=== PATIENT | female | born 1960 | race Caucasian/White ===

== ENCOUNTER 2016-12-23 23:59 | Emergency (ER) | payer SELFPAY ==
[2016-12-24 00:07] VITALS: BMI 31.6
--- NOTE | 2016-12-24 00:28 | DR.GENAD ---
HPI - PCP Primary Care Physician: NFD - Complaint/Symptoms Chief Complaint:: "ABOUT A WEEK AGO I STEPPED ON A PIECE OF MULCH, AND I HAVEN' T HAD FEELING IN MY FEET PRIOR TO THAT LIKE I SHOULD FOR SOMETIME. SINCE I STEPPED ON MULCH , I HAD A BLISTER COME UP AND I POPPED IT SINCE IT HAS WENT CRAZY. I HAVE BEEN RUNNING FEVER AND MY FOOT IS SWOLLEN. FEVER HAS BEEN 99.8 HIGHEST." Self Treatment fo Chief Complaint: IBUPROFEN-DID NOT HELP - Nurses notes reviewed Nurses Notes Review: Yes - Source History Provided: Patient - Mode of Arrival Mode of Arrival: Ambulatory - Timing Onset of Chief Complaint: 12/17/16 PMH - PMH Past Medical History: Yes Past Medical History: COPD, Hypertension, Diabetes Past Surgical History: No - Family History History of Family Medical Conditions: Yes Family Medical History: Diabetes Mellitus, Cancer, Hypertension - Social History Type of Tobacco Use: None Alcohol Use: None Do you use any recreational Drugs:: No Lives With: Family Lives Where: Home - infectious screening Have you traveled outside the country in the last 6 months?: No Isolation: Standard PE - Vital Signs Vitals: Temperature 98.2 F Pulse Rate [Left] 86 Pulse Rate 94 Respiratory Rate 16 Blood Pressure [Left Radial 176/91 Artery] Blood Pressure 192/98 O2 Sat by Pulse Oximetry 97 ROR - Labs Reviewed Result Diagrams: 12/24/16 00:58 12/24/16 00:58 Laboratory: WBC 6.1 X10^3/uL (3.6-10.0) 12/24/16 00:58 RBC 4.58 X10^6/uL (3.5-5.4) 12/24/16 00:58 Hgb 13.6 g/dL (12.0-16.0) 12/24/16 00:58 Hct 39.0 % (36.0-47.0) 12/24/16 00:58 MCV 85.0 fL (80.0-100.0) 12/24/16 00:58 MCH 29.6 pg (27.0-34.0) 12/24/16 00:58 MCHC 34.8 g/dL (33.0-35.0) 12/24/16 00:58 RDW 13.1 % (11.6-16.5) 12/24/16 00:58 Plt Count 221 X10^3/uL (150.0-450.0) 12/24/16 00:58 MPV 7.6 fL (7.4-11.0) 12/24/16 00:58 Neut % 62.5 % (42.0-75.0) 12/24/16 00:58 Lymph % 30.5 % (21.0-51.0) 12/24/16 00:58 [place] % 6.4 % (0.0-13.0) 12/24/16 00:58 Eos % 0.0 % (0.9-2.9) L 12/24/16 00:58 Baso % 0.6 % (0.2-1.0) 12/24/16 00:58 Neut # 3.8 x10^3/uL (2.2-4.8) 12/24/16 00:58 Lymph # 1.9 X10^3/uL (1.3-2.9) 12/24/16 00:58 [place] # 0.4 x10^3/uL (0.3-0.8) 12/24/16 00:58 Eos # 0.0 x10^3/uL (0.0-0.2) 12/24/16 00:58 Baso # 0.0 X10^3/uL (0.0-0.1) 12/24/16 00:58 Absolute Nucleated RBC 0.1 /100WBC 12/24/16 00:58 Sodium 133 mmol/L (136-145) L 12/24/16 00:58 Corrected Sodium 141 mmol/L (136-145) 12/24/16 00:58 Potassium 4.2 mmol/L (3.5-5.1) 12/24/16 00:58 Chloride 97 mmol/L (98-107) L 12/24/16 00:58 Carbon Dioxide 28.4 mmol/L (21-32) 12/24/16 00:58 BUN 18 mg/dL (7-18) 12/24/16 00:58 Creatinine 1.05 mg/dL (0.55-1.02) H 12/24/16 00:58 Est GFR (MDRD) Af Amer > 60 (>60) 12/24/16 00:58 Est GFR (MDRD) Non-Af 58 (>60) L 12/24/16 00:58 Glucose 421 mg/dL (65-99) H 12/24/16 00:58 Calcium 9.6 mg/dL (8.5-10.1) 12/24/16 00:58 Corrected Calcium TNP 12/24/16 00:58 Total Bilirubin 0.30 mg/dL (0.2-1.0) 12/24/16 00:58 AST 13 Units/L (15-37) L 12/24/16 00:58 ALT 23 Units/L (12-78) 12/24/16 00:58 Alkaline Phosphatase 100 Units/L (46-116) 12/24/16 00:58 Total Protein 8.5 g/dL (6.4-8.2) H 12/24/16 00:58 Albumin 3.7 g/dL (3.4-5.0) 12/24/16 00:58 Globulin 4.8 g/dL (2.5-4.5) H 12/24/16 00:58 Albumin/Globulin Ratio 0.8 Ratio (1.1-2.1) L 12/24/16 00:58 Acetone, Semi-Quant Negative (NEGATIVE) 12/24/16 00:58 - Discharge Plan Disposition: 01 HOME, SELF-CARE Condition: Stable Prescriptions: Clonidine HCl [CATAPRES 0.2 MG TAB *] 0.2 mg PO BID #60 tab Metformin HCl [GLUCOPHAGE 500 MG *] 500 mg PO BID #60 tab Sulfamethoxazole-Trimethoprim [BACTRIM DS TAB 800/160 MG *] 1 tab PO BID #20 tab - Follow ups/Referrals Follow ups/Referrals: NFD,None [Primary Care Provider] - 3 days - Instructions Instructions: Hyperglycemia, Cellulitis, Hypertension Additional Instructions: RETURN TO [facility]. YOU ARE DISCHARGE FROM ED AGAINST MEDICAL ADVICE. WE RECOMMEND HOSPITALIZATION FOR MANAGEMENT. BECAUSE YOU HAVE NO PCP, [facility] [employer] INFORMATION IS GIVEN FOR FOLLOW UP. MONITOR YOU BLOOD PRESSURE DAILY. WRITE IT DOWN AND TAKE IT TO THE DOCTOR YOU ARE GOING TO SEE FOR FOLLOW UP.
[2016-12-24 01:24] LABS: BASOPHILS % (AUTO) 0.6 % (0.2-1.0); HEMOGLOBIN 13.6 g/dL (12.0-16.0); LYMPHOCYTES # (AUTO) 1.9 X10^3/uL (1.3-2.9); LYMPHOCYTES % (AUTO) 30.5 % (21.0-51.0); MEAN CORPUSCULAR HEMOGLOBIN 29.6 pg (27.0-34.0); MEAN CORPUSCULAR HGB CONC 34.8 g/dL (33.0-35.0); MEAN PLATELET VOLUME 7.6 fL (7.4-11.0); MONOCYTES # (AUTO) 0.4 x10^3/uL (0.3-0.8); MONOCYTES % (AUTO) 6.4 % (0.0-13.0); NEUTROPHILS # (AUTO) 3.8 x10^3/uL (2.2-4.8); NEUTROPHILS % (AUTO) 62.5 % (42.0-75.0); PLATELET COUNT 221 X10^3/uL (150.0-450.0); RED BLOOD COUNT 4.58 X10^6/uL (3.5-5.4); RED CELL DISTRIBUTION WIDTH 13.1 % (11.6-16.5); WHITE BLOOD COUNT 6.1 X10^3/uL (3.6-10.0)
[2016-12-24 01:58] LABS: ALANINE AMINOTRANSFERASE 23 Units/L (12-78); ALBUMIN 3.7 g/dL (3.4-5.0); ALKALINE PHOSPHATASE 100 Units/L (46-116); ASPARTATE AMINO TRANSFERASE 13 Units/L (15-37); BLOOD UREA NITROGEN 18 mg/dL (7-18); CALCIUM 9.6 mg/dL (8.5-10.1); CARBON DIOXIDE 28.4 mmol/L (21-32); CHLORIDE 97 mmol/L (98-107); COR NA(FOR HYPERGLY) 141 mmol/L (136-145); CREATININE 1.05 mg/dL (0.55-1.02); GLUCOSE 421 mg/dL (65-99); SODIUM 133 mmol/L (136-145); TOTAL PROTEIN 8.5 g/dL (6.4-8.2); eGFR BLACK RACES > 60 (>60); eGFR NON BLACK RACES 58 (>60)
[2016-12-24] MEDS ORDERED: ROCEPHIN VIAL 1 GM IM ONE (02:09)
[2016-12-24] MEDS ORDERED: TORADOL 60 MG VIAL IM ONE (02:09)
[2016-12-24] MEDS ORDERED: HumuLIN R SC ONE (02:12)
[2016-12-24] MEDS ORDERED: HumuLIN R ONE (02:19)
[2016-12-24] MEDS ORDERED: TORADOL 60 MG VIAL ONE (02:19)
[2016-12-24] MEDS ORDERED: ROCEPHIN VIAL 1 GM ONE (02:19)
[2016-12-24] MEDS ORDERED: XYLOCAINE 1 % (PLAIN) ONE (02:20)
[2016-12-24] MEDS ORDERED: NEOSPORIN OINT TOP ONE (02:30)
[2016-12-24] MEDS ORDERED: NEOSPORIN OINT ONE (02:31)
[2016-12-24] MEDS ORDERED: NIFEDIPINE CAP 10 MG ONE (02:32)
[2016-12-24] MEDS ORDERED: CATAPRES TAB 0.2 MG ONE (02:33)
[2016-12-24] MEDS ORDERED: CATAPRES TAB 0.2 MG PO ONE ×2 (02:33→02:35)
[2016-12-24 03:16] VITALS: BP 176/91
== END 2016-12-24 03:17 | disposition home or self-care (01) ==
LOC: ER 23:59
DX: L03.90 Cellulitis, unspecified (principal); R73.9 Hyperglycemia, unspecified; I10 Essential (primary) hypertension
CPT/HCPCS: 36415; 80053; 82009; 85025; 87040; 96372; 99282; 99283; J0696; J1815; J1885; J2001

== ENCOUNTER 2017-02-20 19:14 | Emergency (ER) | payer SELFPAY ==
[2017-02-20 19:19] VITALS: BP 147/82; BMI 31.6
[2017-02-20 21:22] LABS: BASOPHILS % (AUTO) 0.4 % (0.2-1.0); HEMATOCRIT 38.1 % (36.0-47.0); HEMOGLOBIN 13.3 g/dL (12.0-16.0); LYMPHOCYTES # (AUTO) 1.4 X10^3/uL (1.3-2.9); MEAN CORPUSCULAR HEMOGLOBIN 29.9 pg (27.0-34.0); MEAN CORPUSCULAR HGB CONC 34.8 g/dL (33.0-35.0); MEAN CORPUSCULAR VOLUME 85.8 fL (80.0-100.0); MEAN PLATELET VOLUME 7.9 fL (7.4-11.0); MONOCYTES # (AUTO) 0.5 x10^3/uL (0.3-0.8); MONOCYTES % (AUTO) 7.2 % (0.0-13.0); NEUTROPHILS # (AUTO) 4.8 x10^3/uL (2.2-4.8); NEUTROPHILS % (AUTO) 71.4 % (42.0-75.0); PLATELET COUNT 160 X10^3/uL (150.0-450.0); RED BLOOD COUNT 4.44 X10^6/uL (3.5-5.4); RED CELL DISTRIBUTION WIDTH 13.6 % (11.6-16.5); WHITE BLOOD COUNT 6.8 X10^3/uL (3.6-10.0)
[2017-02-20] MEDS ORDERED: DILAUDID INJ IM ONE (22:48)
[2017-02-20] MEDS ORDERED: ROCEPHIN VIAL 1 GM ONE (22:57)
[2017-02-20] MEDS ORDERED: DILAUDID INJ ONE (22:57)
[2017-02-20] MEDS ORDERED: ROCEPHIN VIAL 1 GM IM ONE (22:57)
--- NOTE | 2017-02-20 23:02 | DR.GENAD ---
HPI - PCP Primary Care Physician: nfd - Complaint/Symptoms Chief Complaint Doctors Comments: I agree with statement Chief Complaint:: "i stepped on a nail on ." denies any drainage. note redness and edema to left foot. Self Treatment fo Chief Complaint: soaked in episom salt, warm water, peroxide, alcohol. - Source History Provided: Patient - Mode of Arrival Mode of Arrival: Ambulatory - Timing Onset of Chief Complaint: 02/17/17 PMH - PMH Past Medical History: Yes Past Medical History: COPD, Hypertension, Diabetes Past Surgical History: No - Family History History of Family Medical Conditions: Yes Family Medical History: Diabetes Mellitus, Cancer, Hypertension - Social History Does patient currently use any type of tobacco product: No Have you used tobacco products in the last 12 months: No Type of Tobacco Use: None Does any household member use tobacco: No Alcohol Use: None Do you use any recreational Drugs:: No Lives With: Family Lives Where: Home - infectious screening Have you traveled outside the country in the last 6 months?: No Isolation: Standard ROS - Review of Systems Constitutional: No Symptoms Reported Eyes: No Symptoms Reported ENTM: No Symptoms Reported Respiratoy: No Symptoms Reported Cardiovascular: No Symptoms Reported Gastrointestinal/Abdominal: No Symptoms Reported, Abdominal Pain Genitourinary: No Symptoms Reported Neurological: No Symptoms Reported Musculoskeletal: Foot (left plantar surface middle of foot) Integumentary: No Symptoms Reported Hematologic/Lymphatic: No Symptoms Reported Endocrine: No Symptoms Reported Psychiatric: No Symptoms Reported All Other Systems: Reviewed and Negative PE - Vital Signs Vitals: Temperature 98.7 F Pulse Rate 98 Respiratory Rate 16 Blood Pressure [Left Radial 176/91 Artery] Blood Pressure 147/82 O2 Sat by Pulse Oximetry 97 - General General Appearance: Alert - Head Head Exam: Normal Inspection, Atraumatic - Eyes Eye exam: Normal Appearance, PERRL, EOMI - ENT ENT Exam: Normal Exam External Ear Exam: Normal External Inspection TM/Canal Exam: Bilateral Normal Nose Exam: Normal Nose Exam Mouth Exam: Normal Inspection Throat Exam: Normal Inspection - Neck Neck Exam: Normal Inspection, Full ROM - Chest Chest Inspection: Normal Inspection - Respiratory Respiratory Exam: Normal Lung Sounds Bilat Respiratory Exam: Bilateral Clear to Auscultation - Cardiovascular Cardiovascular Exam: Regular Rate - Abdominal Exam Abdominal Exam: Normal Inspection, Normal Bowel Sounds Abdominal Tenderness: negative: RUQ, RLQ, LUQ, LLQ, Epigastrium, Suprapubic, Diffuse, Mild, Moderate, Severe, Other - Extremities Extremities Exam: Other (plantar surface of left foot dull red bullous tender) - Back Back Exam: Normal Inspection - Neurologic Neurological Exam: Alert, Oriented X3, CN II-XII Intact - Psychiatric Psychiatric Exam: Normal Affect - Skin Skin Exam: Warm, Dry Course - Treatment Treatment: culture sample obtained, dilaudid, ceftriaxone - Reevaluation 1st: Improved ROR - Labs Reviewed Result Diagrams: 02/20/17 21:00 Laboratory: WBC 6.8 X10^3/uL (3.6-10.0) 02/20/17 21:00 RBC 4.44 X10^6/uL (3.5-5.4) 02/20/17 21:00 Hgb 13.3 g/dL (12.0-16.0) 02/20/17 21:00 Hct 38.1 % (36.0-47.0) 02/20/17 21:00 MCV 85.8 fL (80.0-100.0) 02/20/17 21:00 MCH 29.9 pg (27.0-34.0) 02/20/17 21:00 MCHC 34.8 g/dL (33.0-35.0) 02/20/17 21:00 RDW 13.6 % (11.6-16.5) 02/20/17 21:00 Plt Count 160 X10^3/uL (150.0-450.0) 02/20/17 21:00 MPV 7.9 fL (7.4-11.0) 02/20/17 21:00 Neut % 71.4 % (42.0-75.0) 02/20/17 21:00 Lymph % 21.0 % (21.0-51.0) 02/20/17 21:00 [place] % 7.2 % (0.0-13.0) 02/20/17 21:00 Eos % 0.0 % (0.9-2.9) L 02/20/17 21:00 Baso % 0.4 % (0.2-1.0) 02/20/17 21:00 Neut # 4.8 x10^3/uL (2.2-4.8) 02/20/17 21:00 Lymph # 1.4 X10^3/uL (1.3-2.9) 02/20/17 21:00 [place] # 0.5 x10^3/uL (0.3-0.8) 02/20/17 21:00 Eos # 0.0 x10^3/uL (0.0-0.2) 02/20/17 21:00 Baso # 0.0 X10^3/uL (0.0-0.1) 02/20/17 21:00 Absolute Nucleated RBC 0.1 /100WBC 02/20/17 21:00 C-Reactive Protein 77.00 mg/L (0-3.0) H 02/20/17 21:00 - Diagnosis Discharge Problem: Cellulitis of left foot - Discharge Plan Condition: Stable - Follow ups/Referrals Follow ups/Referrals: NFD,None [Primary Care Provider] - 3 days - Instructions
[2017-02-20] MEDS ORDERED: ADACEL TDaP IM ONE ×2 (23:06→23:13)
== END 2017-02-20 23:19 | disposition home or self-care (01) ==
LOC: ER 19:14
DX: L03.116 Cellulitis of left lower limb (principal); B95.62 Methicillin resistant Staphylococcus aureus infection as the cause of diseases classified elsewhere
CPT/HCPCS: 36415; 85025; 86140; 87040; 87070; 87075; 87077; 87186; 87205; 90471; 96372; 99283; J0696

== ENCOUNTER 2020-01-31 15:30 | Observation (INO) ==
--- NOTE | 2020-01-31 15:46 | DR.EXTPAIN ---
HPI Time seen Time Seen by Provider: 01/31/20 15:45 PCP Primary Care Physician: ZOHRA CASTRO Complaint/Symptoms Chief Complaint:: PT. C/O RIGHT FOOT PAIN, REDNESS AND SWELLING X 3 WEEKS. PT. REPORTS TO HAVING CHILLS AND FEVER WHICH BEGAN YESTERDAY. UNKNOWN INJURY. COVID-19 Coronavirus risk:travel/contact w/high risk person: No Has patient experienced Coronavirus symptoms: No Source History Provided: Patient Mode of arrival Mode of Arrival: Ambulatory Timing Onset of Chief Complaint: 01/10/20 PMH PMH Past Medical History: Yes Past Medical History: COPD, Diabetes and Hypertension Past Surgical History: No Surgical History: No History Family History History of Family Medical Conditions: Yes Family Medical History: Diabetes Mellitus, Cancer, [place], Coronary Artery Disease, Heart Failure and Hypertension Social History Does patient currently use any type of tobacco product: No Have you used tobacco products in the last 12 months: No Type of Tobacco Use: None Does any household member use tobacco: No Alcohol Use: None Do you use any recreational Drugs:: No Lives With: Family Lives Where: Home Travel Risk Coronavirus risk:travel/contact w/high risk person: No Has patient experienced Coronavirus symptoms: No Infectious screening In the last 2 months have you had wt loss of >10#?: NO Have you had fever, night sweats or hemotysis?: No Have you traveled outside the country in the last 6 months?: No Isolation: Standard ROS Review of Systems Constitutional: No Symptoms Reported and See HPI Eyes: No Symptoms Reported and See HPI ENTM: No Symptoms Reported and See HPI Respiratoy: No Symptoms Reported and See HPI Cardiovascular: No Symptoms Reported and See HPI Gastrointestinal/Abdominal: No Symptoms Reported and See HPI Genitourinary: No Symptoms Reported and See HPI Neurological: No Symptoms Reported and See HPI Musculoskeletal: No Symptoms Reported and See HPI Integumentary: No Symptoms Reported and See HPI Hematologic/Lymphatic: No Symptoms Reported and See HPI Endocrine: No Symptoms Reported and See HPI Psychiatric: No Symptoms Reported and See HPI All Other Systems: Reviewed and Negative PE Vital Signs Vitals: Temperature 97.5 F Pulse Rate 96 Respiratory Rate 17 Blood Pressure [Left Radial 149/80 Artery] Blood Pressure 121/71 O2 Sat by Pulse Oximetry 95 General Limitations: No Limitations General Appearance: Alert and In No Apparent Distress Head Head Exam: Normal Inspection Eyes Eye exam: Normal Appearance ENT ENT Exam: Normal Exam Neck Neck Exam: Normal Inspection Chest Chest Inspection: Normal Inspection Respiratory Respiratory Exam: Normal Lung Sounds Bilat Cardiovascular Cardiovascular Exam: Regular Rate and Normal Rhythm Abdominal Exam Abdominal Exam: Normal Inspection, Normal Bowel Sounds and Soft Extremities Extremities Exam: Normal Inspection Back Back Exam: Normal Inspection Neurological Neurological Exam: Alert, Oriented X3 and CN II-XII Intact Psychiatric Psychiatric Exam: Normal Affect and Normal Mood Skin Skin Exam: Warm, Dry, Intact and Normal Color ROR Labs Reviewed Result Diagrams: 01/31/20 17:05 01/31/20 17:05 Laboratory: 01/31/20 16:48 Foot - Right Gram Stain - Final WBC 8.2 X10^3/uL (3.6-10.0) 01/31/20 17:05 RBC 4.14 X10^6/uL (3.5-5.4) 01/31/20 17:05 Hgb 12.4 g/dL (12.0-16.0) 01/31/20 17:05 Hct 38.7 % (36.0-47.0) 01/31/20 17:05 MCV 93.3 fL (80.0-100.0) 01/31/20 17:05 MCH 30.0 pg (27.0-34.0) 01/31/20 17:05 MCHC 32.2 g/dL (33.0-35.0) L 01/31/20 17:05 RDW 14.7 % (11.6-16.5) 01/31/20 17:05 Plt Count 194 X10^3/uL (150.0-450.0) 01/31/20 17:05 MPV 8.3 fL (7.4-11.0) 01/31/20 17:05 Neut % (Auto) 78.6 % (42.0-75.0) H 01/31/20 17:05 Lymph % (Auto) 11.2 % (21.0-51.0) L 01/31/20 17:05 [place] % (Auto) 9.5 % (0.0-13.0) 01/31/20 17:05 Eos % (Auto) 0.0 % (0.9-2.9) L 01/31/20 17:05 Baso % (Auto) 0.7 % (0.2-1.0) 01/31/20 17:05 Neut # (Auto) 6.4 x10^3/uL (2.2-4.8) H 01/31/20 17:05 Lymph # (Auto) 0.9 X10^3/uL (1.3-2.9) L 01/31/20 17:05 [place] # (Auto) 0.8 x10^3/uL (0.3-0.8) 01/31/20 17:05 Eos # (Auto) 0.0 x10^3/uL (0.0-0.2) 01/31/20 17:05 Baso # (Auto) 0.1 X10^3/uL (0.0-0.1) 01/31/20 17:05 Absolute Nucleated RBC 0.0 /100WBC 01/31/20 17:05 Sodium 136 mmol/L (136-145) 01/31/20 17:05 Corrected Sodium TNP 01/31/20 17:05 Potassium 5.0 mmol/L (3.5-5.1) 01/31/20 17:05 Chloride 103 mmol/L (98-107) 01/31/20 17:05 Carbon Dioxide 26.9 mmol/L (21-32) 01/31/20 17:05 BUN 17 mg/dL (7-18) 01/31/20 17:05 Creatinine 1.30 mg/dL (0.55-1.02) H 01/31/20 17:05 Est GFR (MDRD) Af Amer 54 (>60) L 01/31/20 17:05 Est GFR (MDRD) Non-Af 45 (>60) L 01/31/20 17:05 Glucose 99 mg/dL (65-99) 01/31/20 17:05 Lactic Acid 1.3 mmol/L (0.4-2.0) 01/31/20 17:05 Calcium 8.8 mg/dL (8.5-10.1) 01/31/20 17:05 Corrected Calcium TNP 01/31/20 17:05 Total Bilirubin 1.50 mg/dL (0.2-1.0) H 01/31/20 17:05 AST 24 Units/L (15-37) 01/31/20 17:05 ALT 24 Units/L (12-78) 01/31/20 17:05 Alkaline Phosphatase 108 Units/L (46-116) 01/31/20 17:05 C-Reactive Protein 80.70 mg/L (0-3.0) H 01/31/20 17:05 Total Protein 8.3 g/dL (6.4-8.2) H 01/31/20 17:05 Albumin 3.4 g/dL (3.4-5.0) 01/31/20 17:05 Globulin 4.9 g/dL (2.5-4.5) H 01/31/20 17:05 Albumin/Globulin Ratio 0.7 Ratio (1.1-2.1) L 01/31/20 17:05 Specimen Type Clean catch urine 01/31/20 17:21 Urine Color Yellow (YELLOW) 01/31/20 17:21 Urine Appearance Clear (CLEAR) 01/31/20 17:21 Urine pH 5.0 (5.0 - 8.0) 01/31/20 17:21 Ur Specific [place] 1.015 (1.000-1.030) 01/31/20 17:21 Urine Protein 2+ (NEGATIVE) 01/31/20 17:21 Urine Glucose (UA) Negative (NEGATIVE) 01/31/20 17:21 Urine Ketones Negative (NEGATIVE) 01/31/20 17:21 Urine Occult Blood 3+ (NEGATIVE) 01/31/20 17:21 Urine Nitrite Negative (NEGATIVE) 01/31/20 17:21 Urine Bilirubin Negative (NEGATIVE) 01/31/20 17:21 Urine Urobilinogen Normal (NORMAL) 01/31/20 17:21 Ur Leukocyte Esterase Negative (NEGATIVE) 01/31/20 17:21 Urine RBC 3-5 /HPF (0-3) A 01/31/20 17:21 Urine WBC 0-2 /HPF (0-5) 01/31/20 17:21 Ur Squamous Epith Cells Rare /HPF (NEGATIVE) 01/31/20 17:21 Amorphous Sediment Trace /HPF (NEGATIVE) 01/31/20 17:21 Urine Bacteria Trace /HPF (NEGATIVE) 01/31/20 17:21 Ur Culture Indicated? No/not indicated 01/31/20 17:21 Opioid Opioid Risk Tool Age (Kevin box if 16-45): No History of Preadolescent Sexual Abuse: No Total: 0 Total Score Risk Category: Low Risk Copyright: Donell BOBO predicting aberrant behaviors Diagnosis Discharge Problem: Cellulitis and abscess of toe of right foot Diabetic foot ulcer Qualifiers: Diabetic foot ulcer location: toe Diabetes mellitus type: type 2 Laterality: right Non-pressure ulcer stage: limited to breakdown of skin Qualified Code(s): E11.621 - Type 2 diabetes mellitus with foot ulcer Instructions Forms: Excuse From Work Precautions for COVID19 Patient Portal Social Distancing
[2020-01-31] MEDS ORDERED: VANCOMYCIN IV *PREMIX 1 G/200 ML BAG 1 G/200 ML PIGGYBACK IV ONE (16:21)
--- NOTE | 2020-01-31 16:54 | RAD ---
HISTORYCELLULUTITIS TO RT FOOTSTUDYRight foot x-rays three viewsCOMPARISONNoneFINDINGSThere is mild osteopenia. There is plantar calcaneal spur. There is mild hypertrophic changes at the navicular bone and the middle cuneiform. There is no evidence of acute fractures. No focal bone abnormalities. No focal bone destruction is seen there is soft tissue edema in the dorsal aspect of the forefoot. The subtalar joints are unremarkableIMPRESSIONDiffuse soft tissue edema in the dorsal aspect of the forefoot. No cortical disruption no acute fractures. Mild osteopenia.Electronically signed by: Yanet Booth (Jan 31, 2020 16:53:12)
[2020-01-31] MEDS ORDERED: NS 250 ML IV 250 ML IV ONE (16:55)
[2020-01-31] MEDS ORDERED: NS 500 ML IV 500 ML IV ONE (16:55)
[2020-01-31] MEDS ORDERED: VANCOMYCIN HCL ONE (16:55)
[2020-01-31] MEDS ORDERED: PHARMACY CONSULT - VANCOMYCIN XX SCH (17:00)
--- NOTE | 2020-01-31 17:00 | VAS ---
LOWER EXT VENOUS, UNILATERALHISTORY: CELLULITIS TO RT FOOTComparison:NoneTECHNIQUE: Multiple chavez scale and color flow Doppler images of the deep venous system were obtained of the right lower extremity.FINDINGS:The deep venous system of the right lower extremity were evaluated from the level of the common femoral vein through the popliteal vein. Normal color flow and augmentation can be observed .In addition, normal compression is seen throughout the deep venous system. Prominent inguinal lymph node measuring over 4 cm.IMPRESSION:1. Negative for DVT.2. Prominent inguinal lymph node which is a nonspecific finding. This may be reactive to patient's reported cellulitis.Electronically signed by: TOYIN GRAYSON (Jan 31, 2020 16:59:15)
--- NOTE | 2020-01-31 17:00 | VAS ---
LOWER EXT ARTERIALHISTORY: CELLULITIS TO RT FOOTComparison:NoneTechnique: Multiple chavez scale and color flow Doppler images of the right lower extremity arterial system were obtained. Interrogation of the common femoral artery, superficial femoral artery, popliteal artery, and tibial arteries was performed.Findings:Triphasic and biphasic waveforms are seen throughout the right lower extremity from the common femoral arterial system to the tibial runoff.Common femoral : 131 cm/sSuperficial femoral proximal: 86 cm/sSuperficial femoral mid: 111 cm/sSuperficial femoral distal : 92 cm/sPopliteal : 112 cm/sPosterior tibial : 38 cm/sAnterior tibial /dorsalis pedis: 74 cm/sIMPRESSION:1. No velocities suggestive of hemodynamically significant stenosis of the right lower extremity arterial system.http://www.ncbi.nlm.nih.gov/pubmed/[email or web address] signed by: TOYIN GRAYSON (Jan 30 0 16:58:36)
[2020-01-31 17:21] LABS: BASOPHILS # (AUTO) 0.1 X10^3/uL (0.0-0.1); BASOPHILS % (AUTO) 0.7 % (0.2-1.0); HEMATOCRIT 38.7 % (36.0-47.0); HEMOGLOBIN 12.4 g/dL (12.0-16.0); LYMPHOCYTES # (AUTO) 0.9 X10^3/uL (1.3-2.9); LYMPHOCYTES % (AUTO) 11.2 % (21.0-51.0); MEAN CORPUSCULAR HGB CONC 32.2 g/dL (33.0-35.0); MEAN CORPUSCULAR VOLUME 93.3 fL (80.0-100.0); MEAN PLATELET VOLUME 8.3 fL (7.4-11.0); MONOCYTES # (AUTO) 0.8 x10^3/uL (0.3-0.8); MONOCYTES % (AUTO) 9.5 % (0.0-13.0); NEUTROPHILS # (AUTO) 6.4 x10^3/uL (2.2-4.8); NEUTROPHILS % (AUTO) 78.6 % (42.0-75.0); PLATELET COUNT 194 X10^3/uL (150.0-450.0); RED BLOOD COUNT 4.14 X10^6/uL (3.5-5.4); RED CELL DISTRIBUTION WIDTH 14.7 % (11.6-16.5); WHITE BLOOD COUNT 8.2 X10^3/uL (3.6-10.0)
[2020-01-31 17:31] LABS: BILIRUBIN,URINE NEGATIVE (NEGATIVE); BLOOD/HEMOGLOBIN,URINE 3+ (NEGATIVE); GLUCOSE, URINE NEGATIVE (NEGATIVE); KETONES,URINE NEGATIVE (NEGATIVE); LEUKOCYTE ESTERASE ,URINE NEGATIVE (NEGATIVE); NITRITES,URINE NEGATIVE (NEGATIVE); PROTEIN,URINE 2+ (NEGATIVE); UROBILINOGEN,URINE NORMAL (NORMAL)
[2020-01-31 17:35] LABS: AMORPHOUS SEDIMENT,UR TRACE /HPF (NEGATIVE); APPEARANCE,URINE CLEAR (CLEAR); BACTERIA,URINE TRACE /HPF (NEGATIVE); COLOR,URINE YELLOW (YELLOW); SQUAMOUS EPITHELIAL CELL,UR RARE /HPF (NEGATIVE)
[2020-01-31 17:35] LABS: ALANINE AMINOTRANSFERASE 24 Units/L (12-78); ALBUMIN 3.4 g/dL (3.4-5.0); ALKALINE PHOSPHATASE 108 Units/L (46-116); ASPARTATE AMINO TRANSFERASE 24 Units/L (15-37); BLOOD UREA NITROGEN 17 mg/dL (7-18); CALCIUM 8.8 mg/dL (8.5-10.1); CARBON DIOXIDE 26.9 mmol/L (21-32); CHLORIDE 103 mmol/L (98-107); SODIUM 136 mmol/L (136-145); TOTAL PROTEIN 8.3 g/dL (6.4-8.2); eGFR NON BLACK RACES 45 (>60)
[2020-01-31 17:50] LABS: LACTIC ACID 1.3 mmol/L (0.4-2.0)
[2020-01-31 20:45] VITALS: BMI 38.6
[2020-01-31] MEDS: LASIX IVP SCH (21:26)
[2020-01-31] MEDS: MORPHINE SULFATE INJ 4 MG IVP PRN (21:27)
[2020-02-01 06:02] LABS: BASOPHILS % (AUTO) 0.4 % (0.2-1.0); HEMATOCRIT 39.2 % (36.0-47.0); HEMOGLOBIN 12.8 g/dL (12.0-16.0); LYMPHOCYTES % (AUTO) 9.8 % (21.0-51.0); MEAN CORPUSCULAR HEMOGLOBIN 30.4 pg (27.0-34.0); MEAN CORPUSCULAR HGB CONC 32.5 g/dL (33.0-35.0); MEAN CORPUSCULAR VOLUME 93.4 fL (80.0-100.0); MEAN PLATELET VOLUME 9.2 fL (7.4-11.0); MONOCYTES # (AUTO) 0.9 x10^3/uL (0.3-0.8); MONOCYTES % (AUTO) 8.6 % (0.0-13.0); NEUTROPHILS # (AUTO) 8.3 x10^3/uL (2.2-4.8); NEUTROPHILS % (AUTO) 81.2 % (42.0-75.0); PLATELET COUNT 210 X10^3/uL (150.0-450.0); RED CELL DISTRIBUTION WIDTH 14.8 % (11.6-16.5); WHITE BLOOD COUNT 10.2 X10^3/uL (3.6-10.0)
[2020-02-01 06:18] LABS: ALBUMIN 3.1 g/dL (3.4-5.0); CALCIUM 8.7 mg/dL (8.5-10.1); CARBON DIOXIDE 24.6 mmol/L (21-32); COR CA(FOR HYPOALB) 9.4 mg/dL (8.5-10.1); CREATININE 1.2 mg/dL (0.55-1.02); TOTAL PROTEIN 8.1 g/dL (6.4-8.2)
[2020-02-01] MEDS ORDERED: VANCOMYCIN HCL 500 MG, VANCOMYCIN HCL 1 G in NS 250 ML IV 250 ML IV SCH (09:00)
[2020-02-01] MEDS ORDERED: VANCOMYCIN HCL 1 G in D5W 250 ML IV 250 ML IV SCH (09:00)
[2020-02-01] MEDS ORDERED: NS 500 ML IV 500 ML IV ONE (10:50)
[2020-02-01] MEDS: VANCOMYCIN HCL VIAL 1.25 G 1.25 G in D5W 250 ML IV 250 ML IV SCH ×2 (10:52→21:21)
[2020-02-01] MEDS: LASIX IVP SCH (10:52)
[2020-02-01] MEDS ORDERED: HumuLIN R SUBCUT PRN (10:59)
--- NOTE | 2020-02-01 11:04 | DR.H&P ---
H&P - History & Physical for Day of: H&P Date: 01/31/20 - Chief Complaint Chief Complaint: RIGHT FOOT REDNESS, SWELLING, PAIN - History of Present Illness History of Present Illness: IS A 59 YEAR OLD PATIENT OF PAT [employer]. SHE PRESENTE TO THE ER WITH COMPLAINT OF REDNESS, PAIN, AND SWELLING TO THE RIGHT FOOT. SHE DENIES KNOWN INJURY. SHE REPORTS FEVER AND CHILLS THAT STARTED ONE DAY PRIOR. ON ARRIVAL, SHE IS NOTED WITH AN OPEN WOUND BETWEEN THE FIRST AND SECOND DIGIT. WOUND HAS PURULENT DRAINAGE. SHE HAS A PMH OF COPD, DIABETES, AND HTN. ON ARRIVAL TO THE ER, VITALS WERE 97.5-96-17-95%-121/71. LABS WERE OBTAINED. ABNORMAL LAB VALUES INCLUDE THE FOLLOWING: CREATININE 1.30, TOTAL BILI 1.50, CRP 80.70, TOTAL PROTEIN 8.3, GLOBULIN 4.9. COVID-19 NEGATIVE. BLOOD AND WOUND CULTURES WERE SET UP. PRELIMINARY WOUND CULTURE REVEALS GROWTH OF MODERATE YEAST AND COAGULASE POSITIVE STAPH. A VENOUS DOPPLER OF THE RIGHT FOOT WAS OBTAINED AND REVEALED: 1. Negative for DVT. 2. Prominent inguinal lymph node which is a nonspecific finding. This may be reactive to patient's reported cellulitis. AN ARTERIAL STUDY WAS OBTAINED AND REVEALED: 1. No velocities suggestive of hemodynamically significant stenosis of the right lower extremity arterial system. A FOOT XRAY WAS OBTAINED AND REVEALED: Diffuse soft tissue edema in the dorsal aspect of the forefoot. No cortical disruption no acute fractures. Mild osteopenia. SHE WAS ADMITTED TO THE HOSPITAL FOR FURTHER EVALUATION AND TREATMENT OF RIGHT FOOT AND LEG CELLULITIS AND A DIABETIC FOOT ULCER. SHE WAS STARTED ON VANCOMYCIN 1.25G IV Q12H, ZOSYN 3.375 G IV TID, DIFLUCAN 200MG IVDAILY, HUMULIN R SLIDING SCALE, LASIX 20MG IV DAILY, MORPHINE 4MG IV Q6H PRN, ZOFRAN 4MG PO Q8H PRN. WE WILL OBTAIN A LOWER EXTREMITY CTA TODAY. OTHERWISE, WE PLAN TO FOLLOW UP WITH AM LABS AND CONTINUE TO MONITOR. - Past Medical History Past Medical History: Hypertension, Diabetes, COPD - Past Surgical History Surgical History: No History - Family History Family Medical History: Diabetes Mellitus, Cancer, [place], Coronary Artery Disease, Heart Failure, Hypertension - Social History Does patient currently use any type of tobacco product: No Have you used tobacco products in the last 12 months: No Type of Tobacco Use: None Does any household member use tobacco: No Alcohol Use: None Drug Use: None - Medications Home Medications: No Known Drug Allergies Allergy (Verified 01/31/20 15:35) CONTINUE taking the following medications furosemide 20 mg PO DAILY 02/01/20 [History] glipizide 2.5 mg PO DAILY 02/01/20 [History] hydrochlorothiazide 12.5 mg PO DAILY 02/01/20 [History] lisinopril 5 mg PO DAILY 02/01/20 [History] potassium chloride 10 meq PO DAILY 02/01/20 [History] - Review of Systems Constitutional: Fever, Chills Eyes: No Symptoms Reported ENT: No Symptoms Reported Respiratory: No Symptoms Reported Cardiovascular: No Symptoms Reported Gastrointestinal: No Symptoms Reported Genitourinary: No Symptoms Reported Musculoskeletal: Leg Pain, Foot Pain Skin: Wound (RIGHT UPPER FOOT ) Neurological: Weakness - Physical Exam Vital Signs: Temperature 99.8 F Pulse Rate [Radial] 118 Pulse Rate 96 Respiratory Rate 24 Blood Pressure [Left Radial 139/91 Artery] Blood Pressure 121/71 O2 Sat by Pulse Oximetry 95 Oriented: Normal Eyes: Normal Ear: Normal Nose: Normal Throat: Normal Respiratory: Diminished Throughout Cardiovascular: Normal : Normal Auscultation: Bowel Sounds: Normal Palpation: Normal Tenderness: Normal Skin: Red, Tender, Hot, Wound Musculoskeletal: Right, Foot, Swelling (2+ PITTING EDEMA ), Tender Psychiatric: Normal Mood Description: Calm Affect: Normal Speech Pattern: Clear - Assessment/Plan (1) Cellulitis and abscess of toe of right foot Status: Acute Plan: ADMIT, VANCOMYCIN 1.25G IV Q12H, ZOSYN 3.375 G IV TID, DIFLUCAN 200MG IVDAILY, HUMULIN R SLIDING SCALE, LASIX 20MG IV DAILY, MORPHINE 4MG IV Q6H PRN, ZOFRAN 4MG PO Q8H PRN. WE WILL OBTAIN A LOWER EXTREMITY CTA TODAY. (2) Diabetic foot ulcer Qualifiers: Diabetic foot ulcer location: toe Diabetes mellitus type: type 2 Laterality: right Non-pressure ulcer stage: limited to breakdown of skin Qualified Code(s): E11.621 - Type 2 diabetes mellitus with foot ulcer; L97.511 - Non-pressure chronic ulcer of other part of right foot limited to breakdown of skin Status: Acute - Allergies Allergies/Adverse Reactions: Allergies Allergy/AdvReac Type Severity Reaction Status Date / Time No Known Drug Allergies Allergy Verified 01/31/20 15:35
--- NOTE | 2020-02-01 12:13 | RAD ---
HISTORYCough, shortness of breathSTUDYChest AP portableCOMPARISONNoneFINDINGSThe heart is enlarged. No congestive heart failure is noted. No acute alveolar infiltrates or pleural effusions are identified. Bony thorax is unremarkable.IMPRESSIONCardiomegaly without congestive heart failureLungs clearElectronically signed by: KUMAR BHANDARI (Feb 01, 2020 12:12:28)
[2020-02-01] MEDS: DIFLUCAN 200 MG IV PREMIX* 200 MG/100 ML BAG IV SCH (14:00)
[2020-02-01] MEDS: ZOSYN VIAL 3.375 GRAMS 3.375 G in NS 100 ML IV 100 ML IV SCH ×2 (14:01)
[2020-02-01] MEDS: LOVENOX INJ 40 MG SYR SC SCH (14:03)
[2020-02-01] MEDS: ZOFRAN TAB 4 MG PO PRN (14:30)
[2020-02-01] MEDS: MICRO K EXTEN CAP 10 MEQ PO SCH (16:01)
[2020-02-01] MEDS: HYDROCHLOROTHIAZIDE 12.5 MG CAP PO SCH (16:02)
[2020-02-01] MEDS: GLUCOTROL XL 24-HR PO SCH (16:02)
[2020-02-01] MEDS: ZESTRIL TAB 5 MG PO SCH (16:04)
[2020-02-01] MEDS: MORPHINE SULFATE INJ 4 MG IVP PRN ×2 (16:05→22:45)
--- NOTE | 2020-02-01 16:23 | MRI ---
HISTORYCELLULITIS RT FOOT DIABETIC ULCERSTUDYEXT LOWER NON-JOINT W W/O CONCOMPARISONTECHNIQUEMultiplanar multi-sequence MRI of the right foot obtained with contrast using department protocol.FINDINGSThe exam is limited due to motion artifact and lack of adequate fat suppression technique distally. The ankle mortise is intact. There is moderate stranding and edema in the subcutaneous soft tissues around the ankle extending into the dorsum of the foot and into the digits which is most prominent along the 2nd toe extending along the plantar aspect of the distal foot.The talus and calcaneus are unremarkable. The tarsal bones are intact and normal signal intensity. The metatarsals are unremarkable. There is abnormal edema in the proximal phalanx of the 2nd toe which may be extending slightly into the middle phalanx with no obvious fracture seen. There is no periosteal reaction. There is questionable skin ulceration and heterogeneous abnormal signal the adjacent plantar surface of the 2nd toe with no focal fluid collection seen. There are questionable tiny foci of susceptibility artifact scattered along the plantar surface along the distal foot.IMPRESSIONLimited exam due to motion and positioning.Abnormal edema in the proximal phalanx of the 2nd toe and possibly extending into the base of the middle phalanx of the 2nd toe which could be due to early osteomyelitis. Recommend correlating with a three-phase bone scan.Moderate edema and/or cellulitis in the subcutaneous soft tissues around the ankle extending into the dorsum of the foot distally with no obvious abscess seen. There is a questionable skin ulceration along the plantar aspect of the base of the 2nd toe there some questionable tiny punctate areas of susceptibility artifact scattered in the adjacent soft tissues which could represent tiny air collections but are ill-defined. Recommend clinical correlationElectronically signed by: LEENA VAZQUEZ (Feb 01, 2020 16:21:41)
[2020-02-01] MEDS: SNACK - Diabetic Appropriate PO SCH (21:21)
[2020-02-01] MEDS: ZOSYN VIAL 4.5 GRAMS 4.5 G in NS 100 ML IV 100 ML IV SCH (22:57)
[2020-02-01] MEDS: PHENERGAN INJ 25 MG IM PRN (22:57)
[2020-02-02] MEDS: ZOSYN VIAL 4.5 GRAMS 4.5 G in NS 100 ML IV 100 ML IV SCH ×3 (05:07→21:18)
[2020-02-02 05:42] LABS: BASOPHILS # (AUTO) 0.1 X10^3/uL (0.0-0.1); BASOPHILS % (AUTO) 0.6 % (0.2-1.0); HEMATOCRIT 36.5 % (36.0-47.0); LYMPHOCYTES % (AUTO) 12.5 % (21.0-51.0); MEAN CORPUSCULAR HEMOGLOBIN 30.8 pg (27.0-34.0); MEAN CORPUSCULAR VOLUME 93.4 fL (80.0-100.0); MEAN PLATELET VOLUME 8.8 fL (7.4-11.0); MONOCYTES # (AUTO) 0.9 x10^3/uL (0.3-0.8); MONOCYTES % (AUTO) 11.4 % (0.0-13.0); NEUTROPHILS # (AUTO) 6.3 x10^3/uL (2.2-4.8); NEUTROPHILS % (AUTO) 75.5 % (42.0-75.0); PLATELET COUNT 201 X10^3/uL (150.0-450.0); RED CELL DISTRIBUTION WIDTH 14.2 % (11.6-16.5); WHITE BLOOD COUNT 8.3 X10^3/uL (3.6-10.0)
[2020-02-02 06:00] LABS: ALANINE AMINOTRANSFERASE 25 Units/L (12-78); ALBUMIN 2.9 g/dL (3.4-5.0); ALKALINE PHOSPHATASE 98 Units/L (46-116); ASPARTATE AMINO TRANSFERASE 27 Units/L (15-37); BLOOD UREA NITROGEN 15 mg/dL (7-18); CALCIUM 8.6 mg/dL (8.5-10.1); CHLORIDE 97 mmol/L (98-107); COR CA(FOR HYPOALB) 9.5 mg/dL (8.5-10.1); CREATININE 1.11 mg/dL (0.55-1.02); SODIUM 131 mmol/L (136-145); TOTAL PROTEIN 7.7 g/dL (6.4-8.2); eGFR NON BLACK RACES 54 (>60)
[2020-02-02] MEDS: MORPHINE SULFATE INJ 4 MG IVP PRN ×3 (07:45→21:18)
[2020-02-02] MEDS: ZOFRAN TAB 4 MG PO PRN (07:59)
[2020-02-02] MEDS: VANCOMYCIN HCL VIAL 1.25 G 1.25 G in D5W 250 ML IV 250 ML IV SCH (09:15)
[2020-02-02] MEDS: GLUCOTROL XL 24-HR PO SCH (09:30)
[2020-02-02] MEDS: HYDROCHLOROTHIAZIDE 12.5 MG CAP PO SCH (09:31)
[2020-02-02] MEDS: LASIX IVP SCH (09:31)
[2020-02-02] MEDS: LOVENOX INJ 40 MG SYR SC SCH (09:31)
[2020-02-02] MEDS: MICRO K EXTEN CAP 10 MEQ PO SCH (09:33)
[2020-02-02] MEDS: PEPCID 20 MG IV PREMIX* 20 MG/50 ML BAG IV SCH ×2 (09:33→21:19)
[2020-02-02] MEDS: PROTONIX INJ 40 MG VIAL IVP SCH ×2 (09:34→21:19)
[2020-02-02] MEDS: ZESTRIL TAB 5 MG PO SCH (09:34)
[2020-02-02] MEDS: DIFLUCAN 200 MG IV PREMIX* 200 MG/100 ML BAG IV SCH (10:49)
[2020-02-02] MEDS ORDERED: NS 100 ML IV + SPIKE MINIBAG* 100 ML IV ONE ×2 (14:04→20:16)
[2020-02-02] MEDS: PHENERGAN INJ 25 MG IM PRN ×2 (14:22→21:16)
[2020-02-02 20:29] LABS: CREATININE 1.22 mg/dL (0.55-1.02)
[2020-02-02] MEDS ORDERED: PHARMACY COMMENT IV NR (20:30)
[2020-02-02 20:31] LABS: VANCOMYCIN,TROUGH 20.8 ug/mL (15-20)
[2020-02-02] MEDS: SNACK - Diabetic Appropriate PO SCH (21:20)
[2020-02-03] MEDS: VANCOMYCIN HCL 1 G in D5W 250 ML IV 250 ML IV SCH ×2 (04:41→16:52)
[2020-02-03 06:26] LABS: BASOPHILS # (AUTO) 0.1 X10^3/uL (0.0-0.1); HEMATOCRIT 36.7 % (36.0-47.0); LYMPHOCYTES # (AUTO) 0.8 X10^3/uL (1.3-2.9); LYMPHOCYTES % (AUTO) 12.4 % (21.0-51.0); MEAN CORPUSCULAR HEMOGLOBIN 30.5 pg (27.0-34.0); MEAN CORPUSCULAR HGB CONC 32.8 g/dL (33.0-35.0); MEAN PLATELET VOLUME 9.1 fL (7.4-11.0); MONOCYTES # (AUTO) 0.8 x10^3/uL (0.3-0.8); MONOCYTES % (AUTO) 12.7 % (0.0-13.0); NEUTROPHILS # (AUTO) 4.7 x10^3/uL (2.2-4.8); NEUTROPHILS % (AUTO) 73.9 % (42.0-75.0); PLATELET COUNT 204 X10^3/uL (150.0-450.0); RED BLOOD COUNT 3.95 X10^6/uL (3.5-5.4); RED CELL DISTRIBUTION WIDTH 14.3 % (11.6-16.5); WHITE BLOOD COUNT 6.3 X10^3/uL (3.6-10.0)
[2020-02-03 06:41] LABS: ALANINE AMINOTRANSFERASE 25 Units/L (12-78); ALBUMIN 2.8 g/dL (3.4-5.0); ALKALINE PHOSPHATASE 99 Units/L (46-116); ASPARTATE AMINO TRANSFERASE 37 Units/L (15-37); BLOOD UREA NITROGEN 17 mg/dL (7-18); CALCIUM 8.3 mg/dL (8.5-10.1); CARBON DIOXIDE 25.3 mmol/L (21-32); CHLORIDE 96 mmol/L (98-107); COR CA(FOR HYPOALB) 9.3 mg/dL (8.5-10.1); CREATININE 1.12 mg/dL (0.55-1.02); SODIUM 131 mmol/L (136-145); TOTAL PROTEIN 7.4 g/dL (6.4-8.2); eGFR NON BLACK RACES 53 (>60)
[2020-02-03] MEDS: HYDROCHLOROTHIAZIDE 12.5 MG CAP PO SCH (08:06)
[2020-02-03] MEDS: GLUCOTROL XL 24-HR PO SCH (08:06)
[2020-02-03] MEDS: MICRO K EXTEN CAP 10 MEQ PO SCH (08:07)
[2020-02-03] MEDS: LOVENOX INJ 40 MG SYR SC SCH (08:07)
[2020-02-03] MEDS: LASIX IVP SCH (08:07)
[2020-02-03] MEDS: PROTONIX INJ 40 MG VIAL IVP SCH ×2 (08:08→21:30)
[2020-02-03] MEDS: ZESTRIL TAB 5 MG PO SCH (08:08)
[2020-02-03] MEDS: ZOSYN VIAL 4.5 GRAMS 4.5 G in NS 100 ML IV 100 ML IV SCH ×3 (08:09→22:26)
[2020-02-03] MEDS ORDERED: PHARMACY COMMENT IV SCH (08:30)
[2020-02-03] MEDS: MORPHINE SULFATE INJ 4 MG IVP PRN ×3 (09:55→22:25)
[2020-02-03] MEDS: DIFLUCAN 200 MG IV PREMIX* 200 MG/100 ML BAG IV SCH (09:55)
[2020-02-03] MEDS: PHENERGAN INJ 25 MG IM PRN ×3 (09:56→22:24)
[2020-02-03] MEDS: PEPCID 20 MG IV PREMIX* 20 MG/50 ML BAG IV SCH ×2 (11:15→21:34)
--- NOTE | 2020-02-03 12:01 | PCM.PROG ---
Progress Note - Progress Note for Day of Date of Exam: 02/02/20 - Subjective Subjective: IS BEING TREATED FOR CELLULITIS AND DIABETIC ULCER/WOUND TO THE RIGHT FOOT. TODAY, SHE IS ALERT AND OREINTED, LYING IN BED ON MORNING ROUNDS. SHE CONTINUES WITH REDNESS, SWELLING, AND PAIN TO THE RIGHT FOOT. ON EXAMINATION, HEART IS REGULAR IN RATE AND RHYTHM. BILATERAL LUNGS ARE NOTED WITH DIMINISHED LUNG SOUNDS THROUGHOUT. ABDOMEN IS ROUND, SOFT, AND NON-TENDER WITH NORMAL BOWEL SOUNDS NOTED IN ALL QUADRANTS. RIGHT FOOT IS NOTED WITH ERYTHEMA AND EDEMA. WOUND BETWEEN FIRST AND SECOND DIGIT IS NOTED WITH PURULENT DRAINAGE. HER VITALS THIS MORNING ARE: 98.3-95-20-95%-141/90. LABS WERE OBTAINED. ABNORMAL LAB VALUES INCLUDE THE FOLLOWING: SODIUM 131, CHLORIDE 97, CREATININE 1.11, TOTAL BILI 1.40, ALBUMIN 2.9, GLOBULIN 4.8. WOUND CULTURE IS POSITIVE FOR STAPHYLOCOCCUS AUREUS. BLOOD CULTURES ARE PENDING. A LOWER EXTREMITY MRI WAS OBTAINED YESTERDAY AND REVEALED: Abnormal edema in the proximal phalanx of the 2nd toe and possibly extending into the base of the middle phalanx of the 2nd toe which could be due to early osteomyelitis. Recommend correlating with a three-phase bone scan. Moderate edema and/or cellulitis in the subcutaneous soft tissues around the ankle extending into the dorsum of the foot distally with no obvious abscess seen. There is a questionable skin ulceration along the plantar aspect of the base of the 2nd toe there some questionable tiny punctate areas of susceptibility artifact scattered in the adjacent soft tissues which could represent tiny air collections but are ill-defined. SHE IS CURRENTLY RECEIVING VANCOMYCIN 1.25G IV Q12H, ZOSYN 3.375 G IV TID, DIFLUCAN 200MG IVDAILY, HUMULIN R SLIDING SCALE, LASIX 20MG IV DAILY, MORPHINE 4MG IV Q6H PRN, ZOFRAN 4MG PO Q8H PRN. HER HOME MEDICATIONS WERE RESUMED. WE WILL CONTINUE WITH CURRENT PLAN FO CARE TODAY. OTHERWISE, WE WILL FOLLOW UP WITH AM LABS AND CONTINUE TO MONITOR. - Past Medical Family Social History Past Med/Fam/Surg Hx: No changes since H&P Allergies: Allergies No Known Drug Allergies Allergy (Verified 01/31/20 15:35) - Review of Systems ROS: No change since H&P - Vital Signs and I&O's Vital Signs: Temperature 99.2 F Pulse Rate [Radial] 85 Pulse Rate 96 Respiratory Rate 20 Blood Pressure [Right Arm] 134/77 Blood Pressure [Left Radial 121/63 Artery] Blood Pressure 121/71 O2 Sat by Pulse Oximetry 94 Intake and Output: Intake & Output 01/31/20 02/01/20 02/02/20 02/03/20 11:59 11:59 11:59 11:59 Intake Total 890 / 890 1680 / 1680 1540 / 1540 Balance 890 / 890 1680 / 1680 1540 / 1540 - Physical Exam Oriented: Normal Eyes: Normal Ear: Normal Nose: Normal Throat: Normal Respiratory: Generalized, Diminished Cardiovascular: Normal : Normal Auscultation: Bowel Sounds: Normal Palpation: Normal Tenderness: Normal Skin: Red, Tender, Hot, Wound Musculoskeletal: Right, Foot, Swelling (2+ PITTING EDEMA ), Tender Psychiatric: Normal Mood Description: Calm Affect: Normal Speech Pattern: Clear, Appropriate - Laboratory and Diagnostics Result Diagrams: 02/03/20 05:15 02/03/20 05:15 Labs: 01/31/20 16:48 Foot - Right Gram Stain - Final 01/31/20 16:48 Foot - Right Wound Culture - Final Staphylococcus Aureus 01/31/20 17:05 Blood Blood Culture - Preliminary 01/31/20 16:50 Blood Blood Culture - Preliminary Laboratory WBC 6.3 X10^3/uL (3.6-10.0) 02/03/20 05:15 RBC 3.95 X10^6/uL (3.5-5.4) 02/03/20 05:15 Hgb 12.0 g/dL (12.0-16.0) 02/03/20 05:15 Hct 36.7 % (36.0-47.0) 02/03/20 05:15 MCV 93.0 fL (80.0-100.0) 02/03/20 05:15 MCH 30.5 pg (27.0-34.0) 02/03/20 05:15 MCHC 32.8 g/dL (33.0-35.0) L 02/03/20 05:15 RDW 14.3 % (11.6-16.5) 02/03/20 05:15 Plt Count 204 X10^3/uL (150.0-450.0) 02/03/20 05:15 MPV 9.1 fL (7.4-11.0) 02/03/20 05:15 Neut % (Auto) 73.9 % (42.0-75.0) 02/03/20 05:15 Lymph % (Auto) 12.4 % (21.0-51.0) L 02/03/20 05:15 [place] % (Auto) 12.7 % (0.0-13.0) 02/03/20 05:15 Eos % (Auto) 0.0 % (0.9-2.9) L 02/03/20 05:15 Baso % (Auto) 1.0 % (0.2-1.0) 02/03/20 05:15 Neut # (Auto) 4.7 x10^3/uL (2.2-4.8) 02/03/20 05:15 Lymph # (Auto) 0.8 X10^3/uL (1.3-2.9) L 02/03/20 05:15 [place] # (Auto) 0.8 x10^3/uL (0.3-0.8) 02/03/20 05:15 Eos # (Auto) 0.0 x10^3/uL (0.0-0.2) 02/03/20 05:15 Baso # (Auto) 0.1 X10^3/uL (0.0-0.1) 02/03/20 05:15 Absolute Nucleated RBC 0.0 /100WBC 02/03/20 05:15 ESR 84 MM/HOUR (0-20) H 02/01/20 05:05 Sodium 131 mmol/L (136-145) L 02/03/20 05:15 Corrected Sodium TNP 02/03/20 05:15 Potassium 3.7 mmol/L (3.5-5.1) 02/03/20 05:15 Chloride 96 mmol/L (98-107) L 02/03/20 05:15 Carbon Dioxide 25.3 mmol/L (21-32) 02/03/20 05:15 BUN 17 mg/dL (7-18) 02/03/20 05:15 Creatinine 1.12 mg/dL (0.55-1.02) H 02/03/20 05:15 Est GFR (MDRD) Af Amer > 60 (>60) 02/03/20 05:15 Est GFR (MDRD) Non-Af 53 (>60) L 02/03/20 05:15 Glucose 86 mg/dL (65-99) 02/03/20 05:15 POC Glucose (mg/dL) 92 mg/dL (65-99) 02/03/20 05:27 Lactic Acid 1.3 mmol/L (0.4-2.0) 01/31/20 17:05 Calcium 8.3 mg/dL (8.5-10.1) L 02/03/20 05:15 Corrected Calcium 9.3 mg/dL (8.5-10.1) 02/03/20 05:15 Total Bilirubin 1.40 mg/dL (0.2-1.0) H 02/03/20 05:15 AST 37 Units/L (15-37) 02/03/20 05:15 ALT 25 Units/L (12-78) 02/03/20 05:15 Alkaline Phosphatase 99 Units/L (46-116) 02/03/20 05:15 C-Reactive Protein 83.10 mg/L (0-3.0) H 02/02/20 05:09 Total Protein 7.4 g/dL (6.4-8.2) 02/03/20 05:15 Albumin 2.8 g/dL (3.4-5.0) L 02/03/20 05:15 Globulin 4.6 g/dL (2.5-4.5) H 02/03/20 05:15 Albumin/Globulin Ratio 0.6 Ratio (1.1-2.1) L 02/03/20 05:15 Specimen Type Clean catch urine 01/31/20 17:21 Urine Color Yellow (YELLOW) 01/31/20 17:21 Urine Appearance Clear (CLEAR) 01/31/20 17:21 Urine pH 5.0 (5.0 - 8.0) 01/31/20 17:21 Ur Specific [place] 1.015 (1.000-1.030) 01/31/20 17:21 Urine Protein 2+ (NEGATIVE) 01/31/20 17:21 Urine Glucose (UA) Negative (NEGATIVE) 01/31/20 17:21 Urine Ketones Negative (NEGATIVE) 01/31/20 17:21 Urine Occult Blood 3+ (NEGATIVE) 01/31/20 17:21 Urine Nitrite Negative (NEGATIVE) 01/31/20 17:21 Urine Bilirubin Negative (NEGATIVE) 01/31/20 17:21 Urine Urobilinogen Normal (NORMAL) 01/31/20 17:21 Ur Leukocyte Esterase Negative (NEGATIVE) 01/31/20 17:21 Urine RBC 3-5 /HPF (0-3) A 01/31/20 17:21 Urine WBC 0-2 /HPF (0-5) 01/31/20 17:21 Ur Squamous Epith Cells Rare /HPF (NEGATIVE) 01/31/20 17:21 Amorphous Sediment Trace /HPF (NEGATIVE) 01/31/20 17:21 Urine Bacteria Trace /HPF (NEGATIVE) 01/31/20 17:21 Ur Culture Indicated? No/not indicated 01/31/20 17:21 Vancomycin Trough 20.8 ug/mL (15-20) H* 02/02/20 19:57 SARS-CoV-2 (PCR) Negative (NEGATIVE) 01/31/20 21:28 - Plan (1) Cellulitis and abscess of toe of right foot Status: Acute Plan: VANCOMYCIN 1.25G IV Q12H, ZOSYN 3.375 G IV TID, DIFLUCAN 200MG IVDAILY, HUMULIN R SLIDING SCALE, LASIX 20MG IV DAILY, MORPHINE 4MG IV Q6H PRN, ZOFRAN 4MG PO Q8H PRN. (2) Osteomyelitis Status: Acute Qualifiers: Osteomyelitis type: unspecified type Osteomyelitis location: foot Laterality: right Qualified Code(s): M86.9 - Osteomyelitis, unspecified (3) Diabetic foot ulcer Status: Acute Qualifiers: Diabetic foot ulcer location: toe Diabetes mellitus type: type 2 Laterality: right Non-pressure ulcer stage: limited to breakdown of skin [place] lified Code(s): E11.621 - Type 2 diabetes mellitus with foot ulcer; L97.511 - Non-pressure chronic ulcer of other part of right foot limited to breakdown of skin
--- NOTE | 2020-02-03 12:48 | PCM.PROG ---
Progress Note - Progress Note for Day of Date of Exam: 02/03/20 - Subjective Subjective: IS BEING TREATED FOR CELLULITIS AND DIABETIC ULCER/WOUND TO THE RIGHT FOOT WITH OSTEOMYELITIS. TODAY, SHE IS ALERT AND OREINTED, LYING IN BED ON MORNING ROUNDS. SHE CONTINUES WITH REDNESS, SWELLING, AND PAIN TO THE RIGHT FOOT. SHE DOES REPORT SLIGHT IMPROVEMENT SINCE YESTERDAY. ON EXAMINATION, HEART IS REGULAR IN RATE AND RHYTHM. BILATERAL LUNGS ARE NOTED WITH DIMINISHED LUNG SOUNDS THROUGHOUT. ABDOMEN IS ROUND, SOFT, AND NON-TENDER WITH NORMAL BOWEL SOUNDS NOTED IN ALL QUADRANTS. RIGHT FOOT IS NOTED WITH ERYTHEMA AND EDEMA. WOUND BETWEEN FIRST AND SECOND DIGIT IS NOTED WITH A MINIMAL AMOUNT OF DRAINAGE TODAY. HER VITALS THIS MORNING ARE: 99.2-85-20-94%-134/77. LABS WERE OBTAINED. ABNORMAL LAB VALUES INCLUDE THE FOLLOWING: SODIUM 131, CHLORIDE 96, CREATININE 1.12, CALCIUM 8.3, TOTAL BILI 1.40, ALBUMIN 2.8. WOUND CULTURE IS POSITIVE FOR STAPHYLOCOCCUS AUREUS. BLOOD CULTURES ARE PENDING. SHE IS CURRENTLY RECEIVING VANCOMYCIN 1.25G IV Q12H, ZOSYN 3.375 G IV TID, DIFLUCAN 200MG IVDAILY, HUMULIN R SLIDING SCALE, LASIX 20MG IV DAILY, MORPHINE 4MG IV Q6H PRN, ZOFRAN 4MG PO Q8H PRN. HER HOME MEDICATIONS WERE RESUMED. WE WILL CONTINUE WITH CURRENT PLAN OF CARE TODAY. AFTER DISCHARGE, SHE WILL NEED A 6 WEEK COURSE OF ORAL ANTIBIOTICS FOR TREATMENT OF OSTEOMYELITIS. OTHERWISE, WE WILL FOLLOW UP WITH AM LABS AND CONTINUE TO MONITOR. - Past Medical Family Social History Past Med/Fam/Surg Hx: No changes since H&P Allergies: Allergies No Known Drug Allergies Allergy (Verified 01/31/20 15:35) - Review of Systems ROS: No change since H&P - Vital Signs and I&O's Vital Signs: Temperature 97.9 F Pulse Rate [Radial] 99 Pulse Rate 96 Respiratory Rate 20 Blood Pressure [Right Arm] 112/55 Blood Pressure [Left Radial 121/63 Artery] Blood Pressure 121/71 O2 Sat by Pulse Oximetry 98 Intake and Output: Intake & Output 02/01/20 02/02/20 02/03/20 02/04/20 11:59 11:59 11:59 11:59 Intake Total 890 / 890 1680 / 1680 1540 / 1540 Balance 890 / 890 1680 / 1680 1540 / 1540 - Physical Exam Oriented: Normal Eyes: Normal Ear: Normal Nose: Normal Throat: Normal Respiratory: Generalized, Diminished Cardiovascular: Normal : Normal Auscultation: Bowel Sounds: Normal Tenderness: Normal Skin: Red, Tender, Hot, Wound Musculoskeletal: Right, Foot, Swelling (2+ PITTING EDEMA ), Tender Psychiatric: Normal Mood Description: Calm Affect: Normal Speech Pattern: Clear, Appropriate - Laboratory and Diagnostics Result Diagrams: 02/03/20 05:15 02/03/20 05:15 Labs: 01/31/20 16:48 Foot - Right Gram Stain - Final 01/31/20 16:48 Foot - Right Wound Culture - Final Staphylococcus Aureus 01/31/20 17:05 Blood Blood Culture - Preliminary 01/31/20 16:50 Blood Blood Culture - Preliminary Laboratory WBC 6.3 X10^3/uL (3.6-10.0) 02/03/20 05:15 RBC 3.95 X10^6/uL (3.5-5.4) 02/03/20 05:15 Hgb 12.0 g/dL (12.0-16.0) 02/03/20 05:15 Hct 36.7 % (36.0-47.0) 02/03/20 05:15 MCV 93.0 fL (80.0-100.0) 02/03/20 05:15 MCH 30.5 pg (27.0-34.0) 02/03/20 05:15 MCHC 32.8 g/dL (33.0-35.0) L 02/03/20 05:15 RDW 14.3 % (11.6-16.5) 02/03/20 05:15 Plt Count 204 X10^3/uL (150.0-450.0) 02/03/20 05:15 MPV 9.1 fL (7.4-11.0) 02/03/20 05:15 Neut % (Auto) 73.9 % (42.0-75.0) 02/03/20 05:15 Lymph % (Auto) 12.4 % (21.0-51.0) L 02/03/20 05:15 [place] % (Auto) 12.7 % (0.0-13.0) 02/03/20 05:15 Eos % (Auto) 0.0 % (0.9-2.9) L 02/03/20 05:15 Baso % (Auto) 1.0 % (0.2-1.0) 02/03/20 05:15 Neut # (Auto) 4.7 x10^3/uL (2.2-4.8) 02/03/20 05:15 Lymph # (Auto) 0.8 X10^3/uL (1.3-2.9) L 02/03/20 05:15 [place] # (Auto) 0.8 x10^3/uL (0.3-0.8) 02/03/20 05:15 Eos # (Auto) 0.0 x10^3/uL (0.0-0.2) 02/03/20 05:15 Baso # (Auto) 0.1 X10^3/uL (0.0-0.1) 02/03/20 05:15 Absolute Nucleated RBC 0.0 /100WBC 02/03/20 05:15 ESR 84 MM/HOUR (0-20) H 02/01/20 05:05 Sodium 131 mmol/L (136-145) L 02/03/20 05:15 Corrected Sodium TNP 02/03/20 05:15 Potassium 3.7 mmol/L (3.5-5.1) 02/03/20 05:15 Chloride 96 mmol/L (98-107) L 02/03/20 05:15 Carbon Dioxide 25.3 mmol/L (21-32) 02/03/20 05:15 BUN 17 mg/dL (7-18) 02/03/20 05:15 Creatinine 1.12 mg/dL (0.55-1.02) H 02/03/20 05:15 Est GFR (MDRD) Af Amer > 60 (>60) 02/03/20 05:15 Est GFR (MDRD) Non-Af 53 (>60) L 02/03/20 05:15 Glucose 86 mg/dL (65-99) 02/03/20 05:15 POC Glucose (mg/dL) 73 mg/dL (65-99) 02/03/20 12:15 Lactic Acid 1.3 mmol/L (0.4-2.0) 01/31/20 17:05 Calcium 8.3 mg/dL (8.5-10.1) L 02/03/20 05:15 Corrected Calcium 9.3 mg/dL (8.5-10.1) 02/03/20 05:15 Total Bilirubin 1.40 mg/dL (0.2-1.0) H 02/03/20 05:15 AST 37 Units/L (15-37) 02/03/20 05:15 ALT 25 Units/L (12-78) 02/03/20 05:15 Alkaline Phosphatase 99 Units/L (46-116) 02/03/20 05:15 C-Reactive Protein 83.10 mg/L (0-3.0) H 02/02/20 05:09 Total Protein 7.4 g/dL (6.4-8.2) 02/03/20 05:15 Albumin 2.8 g/dL (3.4-5.0) L 02/03/20 05:15 Globulin 4.6 g/dL (2.5-4.5) H 02/03/20 05:15 Albumin/Globulin Ratio 0.6 Ratio (1.1-2.1) L 02/03/20 05:15 Specimen Type Clean catch urine 01/31/20 17:21 Urine Color Yellow (YELLOW) 01/31/20 17:21 Urine Appearance Clear (CLEAR) 01/31/20 17:21 Urine pH 5.0 (5.0 - 8.0) 01/31/20 17:21 Ur Specific [place] 1.015 (1.000-1.030) 01/31/20 17:21 Urine Protein 2+ (NEGATIVE) 01/31/20 17:21 Urine Glucose (UA) Negative (NEGATIVE) 01/31/20 17:21 Urine Ketones Negative (NEGATIVE) 01/31/20 17:21 Urine Occult Blood 3+ (NEGATIVE) 01/31/20 17:21 Urine Nitrite Negative (NEGATIVE) 01/31/20 17:21 Urine Bilirubin Negative (NEGATIVE) 01/31/20 17:21 Urine Urobilinogen Normal (NORMAL) 01/31/20 17:21 Ur Leukocyte Esterase Negative (NEGATIVE) 01/31/20 17:21 Urine RBC 3-5 /HPF (0-3) A 01/31/20 17:21 Urine WBC 0-2 /HPF (0-5) 01/31/20 17:21 Ur Squamous Epith Cells Rare /HPF (NEGATIVE) 01/31/20 17:21 Amorphous Sediment Trace /HPF (NEGATIVE) 01/31/20 17:21 Urine Bacteria Trace /HPF (NEGATIVE) 01/31/20 17:21 Ur Culture Indicated? No/not indicated 01/31/20 17:21 Vancomycin Trough 20.8 ug/mL (15-20) H* 02/02/20 19:57 SARS-CoV-2 (PCR) Negative (NEGATIVE) 01/31/20 21:28 - Plan (1) Cellulitis and abscess of toe of right foot Status: Acute Plan: VANCOMYCIN 1.25G IV Q12H, ZOSYN 3.375 G IV TID, DIFLUCAN 200MG IVDAILY, HUMULIN R SLIDING SCALE, LASIX 20MG IV DAILY, MORPHINE 4MG IV Q6H PRN, ZOFRAN 4MG PO Q8H PRN. (2) Osteomyelitis Status: Acute Qualifiers: Osteomyelitis type: unspecified type Osteomyelitis location: foot Laterality: right Qualified Code(s): M86.9 - Osteomyelitis, unspecified (3) Diabetic foot ulcer Status: Acute Qualifiers: Diabetic foot ulcer location: toe Diabetes mellitus type: type 2 Laterality: right Non-pressure ulcer stage: limited to breakdown of skin Qualified Code(s): E11.621 - Type 2 diabetes mellitus with foot ulcer; L97.511 - Non-pressure chronic ulcer of other part of right foot limited to breakdown of skin
[2020-02-03] MEDS: SNACK - Diabetic Appropriate PO SCH (21:22)
[2020-02-04] MEDS ORDERED: NS 500 ML IV 500 ML IV ONE (03:10)
[2020-02-04] MEDS: VANCOMYCIN HCL 1 G in D5W 250 ML IV 250 ML IV SCH (03:21)
[2020-02-04] MEDS: ZOSYN VIAL 4.5 GRAMS 4.5 G in NS 100 ML IV 100 ML IV SCH (05:38)
[2020-02-04 06:12] LABS: BASOPHILS % (AUTO) 0.6 % (0.2-1.0); HEMATOCRIT 35.7 % (36.0-47.0); HEMOGLOBIN 11.8 g/dL (12.0-16.0); LYMPHOCYTES # (AUTO) 1.5 X10^3/uL (1.3-2.9); LYMPHOCYTES % (AUTO) 20.6 % (21.0-51.0); MEAN CORPUSCULAR HEMOGLOBIN 30.3 pg (27.0-34.0); MEAN CORPUSCULAR VOLUME 91.7 fL (80.0-100.0); MEAN PLATELET VOLUME 8.5 fL (7.4-11.0); MONOCYTES # (AUTO) 1.1 x10^3/uL (0.3-0.8); MONOCYTES % (AUTO) 15.3 % (0.0-13.0); NEUTROPHILS # (AUTO) 4.5 x10^3/uL (2.2-4.8); NEUTROPHILS % (AUTO) 63.5 % (42.0-75.0); PLATELET COUNT 234 X10^3/uL (150.0-450.0); RED BLOOD COUNT 3.89 X10^6/uL (3.5-5.4); RED CELL DISTRIBUTION WIDTH 14.5 % (11.6-16.5); WHITE BLOOD COUNT 7.1 X10^3/uL (3.6-10.0)
[2020-02-04 06:16] LABS: ALANINE AMINOTRANSFERASE 34 Units/L (12-78); ALBUMIN 2.6 g/dL (3.4-5.0); ALKALINE PHOSPHATASE 102 Units/L (46-116); ASPARTATE AMINO TRANSFERASE 50 Units/L (15-37); BLOOD UREA NITROGEN 14 mg/dL (7-18); CHLORIDE 94 mmol/L (98-107); COR CA(FOR HYPOALB) 9.1 mg/dL (8.5-10.1); CREATININE 1.15 mg/dL (0.55-1.02); SODIUM 129 mmol/L (136-145); TOTAL PROTEIN 7.2 g/dL (6.4-8.2); eGFR NON BLACK RACES 52 (>60)
[2020-02-04] MEDS: PEPCID 20 MG IV PREMIX* 20 MG/50 ML BAG IV SCH (09:46)
[2020-02-04] MEDS: PROTONIX INJ 40 MG VIAL IVP SCH (09:49)
[2020-02-04] MEDS: LASIX IVP SCH (09:49)
[2020-02-04] MEDS: HYDROCHLOROTHIAZIDE 12.5 MG CAP PO SCH (09:50)
[2020-02-04] MEDS: MICRO K EXTEN CAP 10 MEQ PO SCH (09:50)
[2020-02-04] MEDS: GLUCOTROL XL 24-HR PO SCH (09:50)
[2020-02-04] MEDS: ZESTRIL TAB 5 MG PO SCH (09:50)
[2020-02-04] MEDS: LOVENOX INJ 40 MG SYR SC SCH (09:51)
[2020-02-04] MEDS: MORPHINE SULFATE INJ 4 MG IVP PRN (10:01)
[2020-02-04] MEDS: DIFLUCAN 200 MG IV PREMIX* 200 MG/100 ML BAG IV SCH (10:01)
[2020-02-04 11:30] VITALS: BP 133/74
[2020-02-04] MEDS ORDERED: PHARMACY COMMENT IV NR (15:30)
== END 2020-02-04 12:00 | disposition home or self-care (01) ==
LOC: MED/SURG 15:32 → ER 15:32 → MED/SURG 19:49
PROVIDERS: ADMIT Internal Medicine; ATTEND Internal Medicine
DX: J44.9 Chronic obstructive pulmonary disease, unspecified; Z11.59 Encounter for screening for other viral diseases; B95.61 Methicillin susceptible Staphylococcus aureus infection as the cause of diseases classified elsewhere; M86.9 Osteomyelitis, unspecified; L03.115 Cellulitis of right lower limb; E11.65 Type 2 diabetes mellitus with hyperglycemia; L97.519 Non-pressure chronic ulcer of other part of right foot with unspecified severity; E11.621 Type 2 diabetes mellitus with foot ulcer; L02.611 Cutaneous abscess of right foot; I10 Essential (primary) hypertension
CPT/HCPCS: 36415; 71010; 71045; 73630; 73720; 80053; 80202; 81001; 82565; 83605; 85025; 85652; 86140; 87040; 87070; 87075; 87077; 87186; 87205; 87635; 93925; 93971; 96365; 96367; 96374; 97161; 99284; A4216; A4222; C9113; G0378; J1450; J1650; J1940; J2270; J2543; J2550; J3370; J7040; J7050; J7060; S0028; S0119; S0181

== ENCOUNTER 2020-02-14 14:25 | Inpatient (IN) ==
[2020-02-14 16:49] VITALS: BMI 37.9
[2020-02-14] MEDS ORDERED: HumuLIN R SUBCUT PRN (18:53)
[2020-02-14] MEDS ORDERED: HYDROCHLOROTHIAZIDE 12.5 MG CAP PO PRN (18:59)
[2020-02-14] MEDS: PERCOCET TAB 5/325 MG PO PRN (19:28)
[2020-02-14] MEDS: BENADRYL CAP/TAB 25 MG PO PRN (19:28)
[2020-02-14 19:57] LABS: BASOPHILS % (AUTO) 0.5 % (0.2-1.0); HEMATOCRIT 39.9 % (36.0-47.0); LYMPHOCYTES # (AUTO) 0.8 X10^3/uL (1.3-2.9); LYMPHOCYTES % (AUTO) 10.2 % (21.0-51.0); MEAN CORPUSCULAR HEMOGLOBIN 30.3 pg (27.0-34.0); MEAN CORPUSCULAR HGB CONC 32.5 g/dL (33.0-35.0); MEAN CORPUSCULAR VOLUME 93.2 fL (80.0-100.0); MEAN PLATELET VOLUME 7.2 fL (7.4-11.0); MONOCYTES # (AUTO) 0.8 x10^3/uL (0.3-0.8); MONOCYTES % (AUTO) 9.8 % (0.0-13.0); NEUTROPHILS # (AUTO) 6.4 x10^3/uL (2.2-4.8); NEUTROPHILS % (AUTO) 79.5 % (42.0-75.0); PLATELET COUNT 228 X10^3/uL (150.0-450.0); RED BLOOD COUNT 4.28 X10^6/uL (3.5-5.4); RED CELL DISTRIBUTION WIDTH 15.4 % (11.6-16.5)
[2020-02-14 20:08] LABS: ALANINE AMINOTRANSFERASE 47 Units/L (12-78); ALBUMIN 3.1 g/dL (3.4-5.0); ALKALINE PHOSPHATASE 148 Units/L (46-116); ASPARTATE AMINO TRANSFERASE 46 Units/L (15-37); BLOOD UREA NITROGEN 21 mg/dL (7-18); CALCIUM 9.2 mg/dL (8.5-10.1); CARBON DIOXIDE 25.9 mmol/L (21-32); CHLORIDE 99 mmol/L (98-107); COR CA(FOR HYPOALB) 9.9 mg/dL (8.5-10.1); CREATININE 1.56 mg/dL (0.55-1.02); SODIUM 130 mmol/L (136-145); TOTAL PROTEIN 8.2 g/dL (6.4-8.2); eGFR NON BLACK RACES 36 (>60)
[2020-02-14] MEDS: NS 1000 ML 1,000 ML IV SCH (21:19)
[2020-02-14] MEDS: COLACE CAP 100 MG PO SCH (21:24)
[2020-02-14] MEDS: SNACK - Diabetic Appropriate PO SCH (21:24)
--- NOTE | 2020-02-14 22:40 | RAD ---
HISTORYPRE OP FOR RT FOOT DEBR.STUDYCHEST, 1 VIEWCOMPARISONJuly 2019FINDINGSThe patient is slightly rotated. The cardiac silhouette is enlarged. The lungs are clear without focal infiltrate or effusion.IMPRESSIONCardiomegaly.Electronically signed by: NIGHAT LEYVA (Feb 14, 2020 22:38:14)
[2020-02-14] MEDS: VANCOMYCIN HCL 500 MG, VANCOMYCIN HCL 1 G in D5W 250 ML IV 250 ML IV SCH (23:15)
[2020-02-15] MEDS: BENADRYL CAP/TAB 25 MG PO PRN ×4 (00:35→21:32)
[2020-02-15] MEDS: PERCOCET TAB 5/325 MG PO PRN ×4 (00:35→18:14)
[2020-02-15 06:27] LABS: BASOPHILS % (AUTO) 0.6 % (0.2-1.0); HEMOGLOBIN 11.8 g/dL (12.0-16.0); LYMPHOCYTES # (AUTO) 0.7 X10^3/uL (1.3-2.9); LYMPHOCYTES % (AUTO) 16.8 % (21.0-51.0); MEAN CORPUSCULAR HEMOGLOBIN 29.9 pg (27.0-34.0); MEAN CORPUSCULAR VOLUME 93.4 fL (80.0-100.0); MEAN PLATELET VOLUME 7.5 fL (7.4-11.0); MONOCYTES # (AUTO) 0.6 x10^3/uL (0.3-0.8); MONOCYTES % (AUTO) 12.9 % (0.0-13.0); NEUTROPHILS % (AUTO) 69.7 % (42.0-75.0); PLATELET COUNT 200 X10^3/uL (150.0-450.0); RED BLOOD COUNT 3.96 X10^6/uL (3.5-5.4); RED CELL DISTRIBUTION WIDTH 15.3 % (11.6-16.5); WHITE BLOOD COUNT 4.3 X10^3/uL (3.6-10.0)
[2020-02-15 06:49] LABS: ALANINE AMINOTRANSFERASE 39 Units/L (12-78); ALBUMIN 2.5 g/dL (3.4-5.0); ALKALINE PHOSPHATASE 127 Units/L (46-116); ASPARTATE AMINO TRANSFERASE 45 Units/L (15-37); BLOOD UREA NITROGEN 19 mg/dL (7-18); CALCIUM 8.3 mg/dL (8.5-10.1); CARBON DIOXIDE 24.7 mmol/L (21-32); CHLORIDE 101 mmol/L (98-107); COR CA(FOR HYPOALB) 9.5 mg/dL (8.5-10.1); CREATININE 1.46 mg/dL (0.55-1.02); SODIUM 131 mmol/L (136-145); TOTAL PROTEIN 6.8 g/dL (6.4-8.2); eGFR NON BLACK RACES 39 (>60)
[2020-02-15] MEDS ORDERED: LASIX IVP ONE (07:33)
[2020-02-15] MEDS ORDERED: MICRO K EXTEN CAP 10 MEQ PO SCH (09:00)
[2020-02-15] MEDS ORDERED: LASIX PO SCH (09:00)
[2020-02-15] MEDS ORDERED: VANCOMYCIN IV *PREMIX 1 G/200 ML BAG 1 G/200 ML PIGGYBACK IV SCH (09:00)
[2020-02-15] MEDS: COLACE CAP 100 MG PO SCH ×2 (09:05→21:26)
[2020-02-15] MEDS: GLUCOTROL XL 24-HR PO SCH (09:05)
[2020-02-15] MEDS: ZESTRIL TAB 5 MG PO SCH (09:05)
[2020-02-15] MEDS: VSL#3 PO SCH (09:06)
[2020-02-15] MEDS: NS 1000 ML 1,000 ML IV SCH ×2 (09:06→21:27)
[2020-02-15] MEDS ORDERED: NS IRRIGATION* 1,000 ML ONE (09:37)
--- NOTE | 2020-02-15 10:26 | DR.UPDATE ---
H&P Update History and Physical Update: History and Physical reviewed and patient examined. Changes noted: Yes with the following: WAS SEEN IN THE OFFICE BY TODAY DUE TO INFECTED WOUNDS OF THE RIGHT FOOT. PATIENT WAS RECENTLY HOSPITALIZED FOR CELLULITIS AND ABSCESS OF THE RIGHT FOOT. DURING HER HOSPITAL STAY, MRI OF THE LOWER EXTREMITY REVEALED OSTEOMYELITIS. SHE WAS SENT HOME ON BACTRIM DS 1 TAB PO BID, CIPRO 500MG PO BID, AND GENTAMICIN CREAM TO WOUND TWICE A DAY. SHE DENIED IMPROVEMENT IN [place] DESPITE COMPLIANCE WITH MEDICATIONS. SHE CONTINUES WITH REDNESS UP THE RIGHT LEG, EXTENDING UP TO THE KNEE WITH EDEMA AND BLISTERS AROUND THE 1ST AND 2ND TOE, BOTH PLANTAR AND DORSAL ASPECT OF THE FOOT. THERE IS 2+ EDEMA NOTED TO BILATERAL LOWER EXTREMITIES. SUGGESTED DEBRIDEMENT OF WOUND TO THE FOOT, WOUND CARE, AND IV ANTIBIOTICS. SHE WAS ADMITTED FOR FURTHER EVALUATION AND TREATMENT. ON ARRIVAL TO THE ER, VITALS WERE 97.9-77-22-97%RA-156/63. LABS WERE OBTAINED. ABNORMAL LAB VALUES INCLUDE THE FOLLOWING: SODIUM 130, POTASSIUM 6.1, BUN 21, CREATININE 1.56, AST 46, ALK PHOS 148, ALBUMIN 3.1, GLOBULIN 5.1. COVID-19 NEGATIVE. BLOOD CULTURES ARE PENDING. A CHEST XRAY WAS OBTAINED FOR SURGICAL CLEARANCE. IT REVEALED : The patient is slightly rotated. The cardiac silhouette is enlarged. The lungs are clear without focal infiltrate or effusion. EKG REVEALED: SINUS RHYTHM WITH HR 77. SHE WAS STARTED ON NS AT 75 ML/HR, LASIX 40MG IV X 1, THEN LASIX 20MG IV BID, VANCOMYCIN 1.5G IV DAILY, LOVENOX 30MG SC BID, HUMULIN R SLIDING SCALE, OTBS ACHS, PERCOCET 5/325MG PO Q4H PRN, HCTZ 12.5MG PO DAILY PRN, ZESTRIL 5MG PO DAILY, COLACE 100MG PO BID, AND BENADRYL 25MG PO Q6H PRN. SHE IS MEDICALLY STABLE AND CLEAR FOR DEBRIDEMENT IN THE OR. OTHERWISE, WE WILL FOLLOW UP WITH AM LABS AND CONTINUE TO MONITOR. H&P Reviewed: Yes Patient was examined?: Yes
[2020-02-15] MEDS ORDERED: XYLOCAINE 1 % (PLAIN) ONE (12:01)
[2020-02-15] MEDS ORDERED: BETADINE SOLN ONE (12:02)
[2020-02-15] MEDS ORDERED: POLYMYXIN B SULFATE ONE (12:08)
[2020-02-15] MEDS ORDERED: D50W ABBOJECT SYR IV ONE (12:26)
[2020-02-15] MEDS ORDERED: HumuLIN R IV ONE (12:27)
[2020-02-15] MEDS ORDERED: FENTANYL INJ 100 mcg ONE ×2 (12:29→12:32)
[2020-02-15] MEDS ORDERED: DIPRIVAN VIAL ONE (12:32)
[2020-02-15] MEDS ORDERED: VERSED ONE (12:32)
[2020-02-15] MEDS ORDERED: HumuLIN R ONE (12:44)
[2020-02-15] MEDS ORDERED: SILVADENE TOP NR (13:00)
[2020-02-15] MEDS: ATARAX TAB 25 MG PO PRN (18:14)
[2020-02-15] MEDS ORDERED: SNACK - Diabetic Appropriate PO SCH (20:00)
[2020-02-15] MEDS: SNACK - Diabetic Appropriate PO SCH (20:49)
[2020-02-15] MEDS: LOVENOX INJ 40 MG SYR SC SCH (21:26)
[2020-02-15] MEDS: VANCOMYCIN HCL 500 MG, VANCOMYCIN HCL 1 G in D5W 250 ML IV 250 ML IV SCH (22:13)
[2020-02-16] MEDS: PERCOCET TAB 5/325 MG PO PRN ×4 (00:48→21:30)
[2020-02-16] MEDS: ATARAX TAB 25 MG PO PRN (02:47)
[2020-02-16 05:40] LABS: BASOPHILS % (AUTO) 0.9 % (0.2-1.0); HEMATOCRIT 39.2 % (36.0-47.0); HEMOGLOBIN 12.8 g/dL (12.0-16.0); LYMPHOCYTES # (AUTO) 0.8 X10^3/uL (1.3-2.9); MEAN CORPUSCULAR HEMOGLOBIN 30.6 pg (27.0-34.0); MEAN CORPUSCULAR HGB CONC 32.7 g/dL (33.0-35.0); MEAN CORPUSCULAR VOLUME 93.4 fL (80.0-100.0); MEAN PLATELET VOLUME 7.1 fL (7.4-11.0); MONOCYTES # (AUTO) 0.6 x10^3/uL (0.3-0.8); NEUTROPHILS # (AUTO) 3.1 x10^3/uL (2.2-4.8); NEUTROPHILS % (AUTO) 68.1 % (42.0-75.0); PLATELET COUNT 210 X10^3/uL (150.0-450.0); RED CELL DISTRIBUTION WIDTH 15.1 % (11.6-16.5); WHITE BLOOD COUNT 4.6 X10^3/uL (3.6-10.0)
[2020-02-16 06:02] LABS: ALBUMIN 2.8 g/dL (3.4-5.0); CALCIUM 8.3 mg/dL (8.5-10.1); CARBON DIOXIDE 25.2 mmol/L (21-32); COR CA(FOR HYPOALB) 9.3 mg/dL (8.5-10.1); CREATININE 1.33 mg/dL (0.55-1.02); TOTAL PROTEIN 7.5 g/dL (6.4-8.2)
[2020-02-16] MEDS: NS 1000 ML 1,000 ML IV SCH ×2 (07:00→11:37)
[2020-02-16] MEDS: LASIX IVP SCH ×3 (07:28→16:44)
[2020-02-16] MEDS: VSL#3 PO SCH (08:51)
[2020-02-16] MEDS: COLACE CAP 100 MG PO SCH ×2 (08:51→21:29)
[2020-02-16] MEDS: LOVENOX INJ 40 MG SYR SC SCH (08:51)
[2020-02-16] MEDS: BENADRYL CAP/TAB 25 MG PO PRN ×2 (08:51→21:30)
[2020-02-16] MEDS: GLUCOTROL XL 24-HR PO SCH (08:52)
[2020-02-16] MEDS: ZESTRIL TAB 5 MG PO SCH (08:52)
[2020-02-16] MEDS: SILVADENE TOP SCH (08:52)
[2020-02-16] MEDS: SNACK - Diabetic Appropriate PO SCH (20:00)
[2020-02-16] MEDS: VANCOMYCIN HCL 500 MG, VANCOMYCIN HCL 1 G in D5W 250 ML IV 250 ML IV SCH (23:00)
[2020-02-17] MEDS: PERCOCET TAB 5/325 MG PO PRN ×4 (01:25→21:00)
[2020-02-17] MEDS: BENADRYL CAP/TAB 25 MG PO PRN ×2 (06:00→21:00)
[2020-02-17 06:22] LABS: BASOPHILS % (AUTO) 0.7 % (0.2-1.0); HEMATOCRIT 39.3 % (36.0-47.0); HEMOGLOBIN 12.6 g/dL (12.0-16.0); LYMPHOCYTES # (AUTO) 0.8 X10^3/uL (1.3-2.9); LYMPHOCYTES % (AUTO) 23.6 % (21.0-51.0); MEAN CORPUSCULAR HEMOGLOBIN 29.9 pg (27.0-34.0); MEAN CORPUSCULAR VOLUME 93.3 fL (80.0-100.0); MEAN PLATELET VOLUME 7.4 fL (7.4-11.0); MONOCYTES # (AUTO) 0.5 x10^3/uL (0.3-0.8); MONOCYTES % (AUTO) 15.2 % (0.0-13.0); NEUTROPHILS # (AUTO) 1.9 x10^3/uL (2.2-4.8); NEUTROPHILS % (AUTO) 60.5 % (42.0-75.0); PLATELET COUNT 178 X10^3/uL (150.0-450.0); RED BLOOD COUNT 4.21 X10^6/uL (3.5-5.4); RED CELL DISTRIBUTION WIDTH 15.2 % (11.6-16.5); WHITE BLOOD COUNT 3.2 X10^3/uL (3.6-10.0)
[2020-02-17 06:52] LABS: ALANINE AMINOTRANSFERASE 37 Units/L (12-78); ALBUMIN 2.8 g/dL (3.4-5.0); ALKALINE PHOSPHATASE 134 Units/L (46-116); ASPARTATE AMINO TRANSFERASE 39 Units/L (15-37); BLOOD UREA NITROGEN 14 mg/dL (7-18); CALCIUM 8.7 mg/dL (8.5-10.1); CARBON DIOXIDE 23.3 mmol/L (21-32); CHLORIDE 103 mmol/L (98-107); COR CA(FOR HYPOALB) 9.7 mg/dL (8.5-10.1); CREATININE 1.12 mg/dL (0.55-1.02); SODIUM 135 mmol/L (136-145); TOTAL PROTEIN 7.5 g/dL (6.4-8.2); eGFR NON BLACK RACES 53 (>60)
[2020-02-17] MEDS: GLUCOTROL XL 24-HR PO SCH (08:35)
[2020-02-17] MEDS: COLACE CAP 100 MG PO SCH ×2 (08:35→21:29)
[2020-02-17] MEDS: LASIX IVP SCH ×2 (08:35→17:52)
[2020-02-17] MEDS: LOVENOX INJ 40 MG SYR SC SCH (08:37)
[2020-02-17] MEDS: VSL#3 PO SCH (08:38)
[2020-02-17] MEDS: SILVADENE TOP SCH (08:38)
[2020-02-17] MEDS: ZESTRIL TAB 5 MG PO SCH (08:38)
[2020-02-17] MEDS: NS 1000 ML 1,000 ML IV SCH ×2 (11:28)
[2020-02-17] MEDS: SNACK - Diabetic Appropriate PO SCH (20:00)
[2020-02-17] MEDS: VANCOMYCIN HCL 500 MG, VANCOMYCIN HCL 1 G in D5W 250 ML IV 250 ML IV SCH (22:24)
[2020-02-18] MEDS: PERCOCET TAB 5/325 MG PO PRN ×5 (01:16→20:19)
[2020-02-18] MEDS: NS 1000 ML 1,000 ML IV SCH ×4 (03:48→14:20)
[2020-02-18] MEDS: BENADRYL CAP/TAB 25 MG PO PRN ×2 (04:04→20:18)
[2020-02-18 06:37] LABS: HEMATOCRIT 40.1 % (36.0-47.0); LYMPHOCYTES # (AUTO) 0.9 X10^3/uL (1.3-2.9); LYMPHOCYTES % (AUTO) 29.6 % (21.0-51.0); MEAN CORPUSCULAR HEMOGLOBIN 29.9 pg (27.0-34.0); MEAN CORPUSCULAR HGB CONC 32.4 g/dL (33.0-35.0); MEAN CORPUSCULAR VOLUME 92.4 fL (80.0-100.0); MEAN PLATELET VOLUME 6.9 fL (7.4-11.0); MONOCYTES # (AUTO) 0.5 x10^3/uL (0.3-0.8); MONOCYTES % (AUTO) 14.7 % (0.0-13.0); NEUTROPHILS # (AUTO) 1.7 x10^3/uL (2.2-4.8); NEUTROPHILS % (AUTO) 54.7 % (42.0-75.0); PLATELET COUNT 176 X10^3/uL (150.0-450.0); RED BLOOD COUNT 4.34 X10^6/uL (3.5-5.4); RED CELL DISTRIBUTION WIDTH 14.8 % (11.6-16.5); WHITE BLOOD COUNT 3.1 X10^3/uL (3.6-10.0)
[2020-02-18 06:49] LABS: ALANINE AMINOTRANSFERASE 39 Units/L (12-78); ALBUMIN 2.9 g/dL (3.4-5.0); ALKALINE PHOSPHATASE 132 Units/L (46-116); ASPARTATE AMINO TRANSFERASE 47 Units/L (15-37); BLOOD UREA NITROGEN 10 mg/dL (7-18); CALCIUM 8.6 mg/dL (8.5-10.1); CARBON DIOXIDE 24.6 mmol/L (21-32); CHLORIDE 102 mmol/L (98-107); COR CA(FOR HYPOALB) 9.5 mg/dL (8.5-10.1); CREATININE 1.04 mg/dL (0.55-1.02); SODIUM 137 mmol/L (136-145); TOTAL PROTEIN 7.6 g/dL (6.4-8.2); eGFR NON BLACK RACES 58 (>60)
[2020-02-18] MEDS: LASIX IVP SCH ×2 (08:31→17:22)
[2020-02-18] MEDS: GLUCOTROL XL 24-HR PO SCH (08:32)
[2020-02-18] MEDS: COLACE CAP 100 MG PO SCH ×2 (08:32→20:14)
[2020-02-18] MEDS: ZESTRIL TAB 5 MG PO SCH (08:32)
[2020-02-18] MEDS: VSL#3 PO SCH (08:33)
[2020-02-18] MEDS: LOVENOX INJ 40 MG SYR SC SCH (08:33)
--- NOTE | 2020-02-18 09:24 | DR.PROGNOT ---
Hospital Progress Notes - Progress Note for Day of: Progress Note Date: 02/18/20 - Chief Complaint Chief Complaint: feeling better . Rt foot ulcers are improving with subsiding cellulitis and less drainage . CULTURES Staph coag - so far . BS is well controlled and Pt is afebrile . - Past Medical Family Social History Past Med/Fam/Surg Hx: No changes since H&P Allergies: Allergies No Known Drug Allergies Allergy (Verified 01/31/20 15:35) - Review Of Systems ROS: No change since H&P - Vital Signs Vital Signs: Temperature 98.6 F Pulse Rate [Left Radial] 92 Pulse Rate 79 Respiratory Rate 18 Blood Pressure [Left Arm] 124/71 Blood Pressure [Right Arm] 142/84 Blood Pressure 137/89 O2 Sat by Pulse Oximetry 98 - Physical Exam Oriented: Normal Eyes: Normal Ear: Normal Nose: Normal Throat: Normal Respiratory: Normal Cardiovascular: Normal : Normal GI:Auscultation: Normal Skin: Wound (Rt foot ulcers and cellulitis are subsiding . no active drainage .. 1+ edema both legs .) Speech Pattern: Clear, Appropriate - Laboratory and Diagnostics Result Diagrams: 02/18/20 05:55 02/18/20 05:55 Labs: 02/15/20 12:47 Foot - Right Gram Stain - Final 02/15/20 12:47 Foot - Right Wound Culture - Preliminary 02/14/20 19:40 Blood Blood Culture - Preliminary 02/14/20 19:20 Blood Blood Culture - Preliminary Laboratory WBC 3.1 X10^3/uL (3.6-10.0) L 02/18/20 05:55 RBC 4.34 X10^6/uL (3.5-5.4) 02/18/20 05:55 Hgb 13.0 g/dL (12.0-16.0) 02/18/20 05:55 Hct 40.1 % (36.0-47.0) 02/18/20 05:55 MCV 92.4 fL (80.0-100.0) 02/18/20 05:55 MCH 29.9 pg (27.0-34.0) 02/18/20 05:55 MCHC 32.4 g/dL (33.0-35.0) L 02/18/20 05:55 RDW 14.8 % (11.6-16.5) 02/18/20 05:55 Plt Count 176 X10^3/uL (150.0-450.0) 02/18/20 05:55 MPV 6.9 fL (7.4-11.0) L 02/18/20 05:55 Neut % (Auto) 54.7 % (42.0-75.0) 02/18/20 05:55 Lymph % (Auto) 29.6 % (21.0-51.0) 02/18/20 05:55 [place] % (Auto) 14.7 % (0.0-13.0) H 02/18/20 05:55 Eos % (Auto) 0.0 % (0.9-2.9) L 02/18/20 05:55 Baso % (Auto) 1.0 % (0.2-1.0) 02/18/20 05:55 Neut # (Auto) 1.7 x10^3/uL (2.2-4.8) L 02/18/20 05:55 Lymph # (Auto) 0.9 X10^3/uL (1.3-2.9) L 02/18/20 05:55 [place] # (Auto) 0.5 x10^3/uL (0.3-0.8) 02/18/20 05:55 Eos # (Auto) 0.0 x10^3/uL (0.0-0.2) 02/18/20 05:55 Baso # (Auto) 0.0 X10^3/uL (0.0-0.1) 02/18/20 05:55 Absolute Nucleated RBC 0.1 /100WBC 02/18/20 05:55 Sodium 137 mmol/L (136-145) 02/18/20 05:55 Corrected Sodium TNP 02/18/20 05:55 Potassium 4.8 mmol/L (3.5-5.1) 02/18/20 05:55 Chloride 102 mmol/L (98-107) 02/18/20 05:55 Carbon Dioxide 24.6 mmol/L (21-32) 02/18/20 05:55 BUN 10 mg/dL (7-18) 02/18/20 05:55 Creatinine 1.04 mg/dL (0.55-1.02) H 02/18/20 05:55 Est GFR (MDRD) Af Amer > 60 (>60) 02/18/20 05:55 Est GFR (MDRD) Non-Af 58 (>60) L 02/18/20 05:55 Glucose 90 mg/dL (65-99) 02/18/20 05:55 POC Glucose (mg/dL) 86 mg/dL (65-99) 02/18/20 05:41 Calcium 8.6 mg/dL (8.5-10.1) 02/18/20 05:55 Corrected Calcium 9.5 mg/dL (8.5-10.1) 02/18/20 05:55 Total Bilirubin 0.80 mg/dL (0.2-1.0) 02/18/20 05:55 AST 47 Units/L (15-37) H 02/18/20 05:55 ALT 39 Units/L (12-78) 02/18/20 05:55 Alkaline Phosphatase 132 Units/L (46-116) H 02/18/20 05:55 C-Reactive Protein 7.80 mg/L (0-3.0) H 02/18/20 05:55 Total Protein 7.6 g/dL (6.4-8.2) 02/18/20 05:55 Albumin 2.9 g/dL (3.4-5.0) L 02/18/20 05:55 Globulin 4.7 g/dL (2.5-4.5) H 02/18/20 05:55 Albumin/Globulin Ratio 0.6 Ratio (1.1-2.1) L 02/18/20 05:55 SARS-CoV-2 (PCR) Negative (NEGATIVE) 02/14/20 16:14 Tissue Pathology To follow 02/15/20 12:58 - Assessment and Plan 1: Rt foot ulcer with cellulitis . possoble osteomyelitis Rt 2nd toe . same local care and application of silvadene . IV Vancomycin. d/c IN 2 DAYS . - Problem Patient Problems: Patient Problems Osteomyelitis (Acute) M86.9
[2020-02-18] MEDS: SILVADENE TOP SCH (10:20)
--- NOTE | 2020-02-18 19:29 | PCM.PROG ---
Progress Note - Progress Note for Day of Date of Exam: 02/16/20 - Subjective Subjective: IS BEING TREATED FOR RIGHT FOOT AND LEG CELLULITIS AND OSTEOMYELITIS OF THE RIGHT FOOT. TOOK PATIENT TO THE OR YESTERDAY FOR DEBRIDEMENT OF WOUNDS. TODAY, SHE IS ALERT AND ORIENTED, LYING IN BED ON MORNING ROUNDS. SHE CONTINUES WITH ERYTHEMA AND EDEMA TO THE RIGHT FOOT AND LEG. THERE IS ALSO REDNESS AND EDEMA NOTED TO THE LEFT LEG. SHE REPORTS PAIN TO THE RIGHT FOOT TODAY. ON EXAMINATION, HEART IS REGULAR IN RATE AND RHYTHM. BILATERAL LUNGS ARE NOTED WITH DIMINISHED LUNG SOUNDS THROUGHOUT. ABDOMEN IS ROUND, SOFT, AND NON-TENDER WITH NORMAL BOWEL SOUNDS NOTED IN ALL QUADRANTS. BILATERAL LEGS NOTED WITH ERYTHEMA AND 2+ PITTING EDEMA. THERE IS A DRESSING TO THE RIGHT FOOT. HER VITALS THIS MORNING ARE: 97.4-83-18-98%RA-127/72. LABS WERE OBTAINED. ABNORMAL LAB VALUES INCLUDE THE FOLLOWING: SODIUM 132, POTASSIUM 5.2, CREATININE 1.33, GLUCOSE 115, CALCIUM 8.3, ALK PHOS 141, CRP 23.0, ALBUMIN 2.8. WOUND AND BLOOD CULTURES ARE PENDING. SHE IS CURRENTLY RECEIVING: NS AT 75 ML/HR, LASIX 20MG IV BID, VANCOMYCIN 1.5G IV DAILY, LOVENOX 40MG SC DAILY, HUMULIN R SLIDING SCALE, OTBS ACHS, PERCOCET 5/325MG PO Q4H PRN, HCTZ 12.5MG PO DAILY PRN, ZESTRIL 5MG PO DAILY, COLACE 100MG PO BID, AND BENADRYL 25MG PO Q6H PRN. WILL CONTINUE TO MONITOR WOUNDS. OTHERWISE, WE WILL FOLLOW UP WITH AM LABS AND CONTINUE TO MONITOR. - Past Medical Family Social History Past Med/Fam/Surg Hx: No changes since H&P Allergies: Allergies No Known Drug Allergies Allergy (Verified 01/31/20 15:35) - Review of Systems ROS: No change since H&P - Vital Signs and I&O's Vital Signs: Temperature 97.8 F Pulse Rate [Left Radial] 91 Pulse Rate 79 Respiratory Rate 20 Blood Pressure [Left Arm] 132/93 Blood Pressure [Right Arm] 142/84 Blood Pressure 137/89 O2 Sat by Pulse Oximetry 97 Intake and Output: Intake & Output 02/16/20 02/17/20 02/18/2018/20 11:59 11:59 11:59 11:59 Intake Total 2930 / 2930 3620 / 3620 3357 / 3357 1390 / 1390 Balance 2930 / 2930 3620 / 3620 3357 / 3357 1390 / 1390 - Physical Exam Oriented: Normal Eyes: Normal Ear: Normal Nose: Normal Throat: Normal Respiratory: Normal Cardiovascular: Normal : Normal Auscultation: Bowel Sounds: Normal Palpation: Normal Tenderness: Normal Skin: Wound (Rt foot ulcers and cellulitis are subsiding . no active drainage .. 2+ edema both legs .) Musculoskeletal: Normal Psychiatric: Normal Mood Description: Calm Affect: Normal Speech Pattern: Clear, Appropriate - Laboratory and Diagnostics Result Diagrams: 02/18/20 05:55 02/18/20 05:55 Labs: 02/15/20 12:47 Foot - Right Gram Stain - Final 02/15/20 12:47 Foot - Right Wound Culture - Preliminary 02/14/20 19:40 Blood Blood Culture - Preliminary 02/14/20 19:20 Blood Blood Culture - Preliminary Laboratory WBC 3.1 X10^3/uL (3.6-10.0) L 02/18/20 05:55 RBC 4.34 X10^6/uL (3.5-5.4) 02/18/20 05:55 Hgb 13.0 g/dL (12.0-16.0) 02/18/20 05:55 Hct 40.1 % (36.0-47.0) 02/18/20 05:55 MCV 92.4 fL (80.0-100.0) 02/18/20 05:55 MCH 29.9 pg (27.0-34.0) 02/18/20 05:55 MCHC 32.4 g/dL (33.0-35.0) L 02/18/20 05:55 RDW 14.8 % (11.6-16.5) 02/18/20 05:55 Plt Count 176 X10^3/uL (150.0-450.0) 02/18/20 05:55 MPV 6.9 fL (7.4-11.0) L 02/18/20 05:55 Neut % (Auto) 54.7 % (42.0-75.0) 02/18/20 05:55 Lymph % (Auto) 29.6 % (21.0-51.0) 02/18/20 05:55 [place] % (Auto) 14.7 % (0.0-13.0) H 02/18/20 05:55 Eos % (Auto) 0.0 % (0.9-2.9) L 02/18/20 05:55 Baso % (Auto) 1.0 % (0.2-1.0) 02/18/20 05:55 Neut # (Auto) 1.7 x10^3/uL (2.2-4.8) L 02/18/20 05:55 Lymph # (Auto) 0.9 X10^3/uL (1.3-2.9) L 02/18/20 05:55 [place] # (Auto) 0.5 x10^3/uL (0.3-0.8) 02/18/20 05:55 Eos # (Auto) 0.0 x10^3/uL (0.0-0.2) 02/18/20 05:55 Baso # (Auto) 0.0 X10^3/uL (0.0-0.1) 02/18/20 05:55 Absolute Nucleated RBC 0.1 /100WBC 02/18/20 05:55 Sodium 137 mmol/L (136-145) 02/18/20 05:55 Corrected Sodium TNP 02/18/20 05:55 Potassium 4.8 mmol/L (3.5-5.1) 02/18/20 05:55 Chloride 102 mmol/L (98-107) 02/18/20 05:55 Carbon Dioxide 24.6 mmol/L (21-32) 02/18/20 05:55 BUN 10 mg/dL (7-18) 02/18/20 05:55 Creatinine 1.04 mg/dL (0.55-1.02) H 02/18/20 05:55 Est GFR (MDRD) Af Amer > 60 (>60) 02/18/20 05:55 Est GFR (MDRD) Non-Af 58 (>60) L 02/18/20 05:55 Glucose 90 mg/dL (65-99) 02/18/20 05:55 POC Glucose (mg/dL) 75 mg/dL (65-99) 02/18/20 17:26 Calcium 8.6 mg/dL (8.5-10.1) 02/18/20 05:55 Corrected Calcium 9.5 mg/dL (8.5-10.1) 02/18/20 05:55 Total Bilirubin 0.80 mg/dL (0.2-1.0) 02/18/20 05:55 AST 47 Units/L (15-37) H 02/18/20 05:55 ALT 39 Units/L (12-78) 02/18/20 05:55 Alkaline Phosphatase 132 Units/L (46-116) H 02/18/20 05:55 C-Reactive Protein 7.80 mg/L (0-3.0) H 02/18/20 05:55 Total Protein 7.6 g/dL (6.4-8.2) 02/18/20 05:55 Albumin 2.9 g/dL (3.4-5.0) L 02/18/20 05:55 Globulin 4.7 g/dL (2.5-4.5) H 02/18/20 05:55 Albumin/Globulin Ratio 0.6 Ratio (1.1-2.1) L 02/18/20 05:55 SARS-CoV-2 (PCR) Negative (NEGATIVE) 02/14/20 16:14 Tissue Pathology To follow 02/15/20 12:58 - Plan (1) Osteomyelitis Status: Acute Qualifiers: Osteomyelitis type: unspecified type Osteomyelitis location: foot Laterality: right Qualified Code(s): M86.9 - Osteomyelitis, unspecified Plan: NS AT 75 ML/HR, LASIX 20MG IV BID, VANCOMYCIN 1.5G IV DAILY, LOVENOX 40MG SC DAILY, HUMULIN R SLIDING SCALE, OTBS ACHS, PERCOCET 5/325MG PO Q4H PRN, HCTZ 12.5MG PO DAILY PRN, ZESTRIL 5MG PO DAILY, COLACE 100MG PO BID, AND BENADRYL 25MG PO Q6H PRN. WOUND CARE (2) Cellulitis of both lower extremities Status: Acute
[2020-02-18] MEDS ORDERED: PHARMACY COMMENT IV NR ×2 (19:30→22:30)
[2020-02-18] MEDS: SNACK - Diabetic Appropriate PO SCH (20:24)
[2020-02-18] MEDS: VANCOMYCIN HCL 500 MG, VANCOMYCIN HCL 1 G in D5W 250 ML IV 250 ML IV SCH (23:00)
[2020-02-19] MEDS: PERCOCET TAB 5/325 MG PO PRN ×3 (00:24→09:09)
[2020-02-19] MEDS: NS 1000 ML 1,000 ML IV SCH ×2 (02:50→16:12)
[2020-02-19] MEDS: BENADRYL CAP/TAB 25 MG PO PRN (05:40)
[2020-02-19 07:00] LABS: BASOPHILS % (AUTO) 1.1 % (0.2-1.0); HEMATOCRIT 37.8 % (36.0-47.0); HEMOGLOBIN 12.1 g/dL (12.0-16.0); LYMPHOCYTES # (AUTO) 0.9 X10^3/uL (1.3-2.9); LYMPHOCYTES % (AUTO) 32.4 % (21.0-51.0); MEAN CORPUSCULAR HEMOGLOBIN 29.8 pg (27.0-34.0); MEAN CORPUSCULAR HGB CONC 32.1 g/dL (33.0-35.0); MEAN CORPUSCULAR VOLUME 92.9 fL (80.0-100.0); MEAN PLATELET VOLUME 7.1 fL (7.4-11.0); MONOCYTES # (AUTO) 0.4 x10^3/uL (0.3-0.8); MONOCYTES % (AUTO) 13.1 % (0.0-13.0); NEUTROPHILS # (AUTO) 1.5 x10^3/uL (2.2-4.8); NEUTROPHILS % (AUTO) 53.4 % (42.0-75.0); PLATELET COUNT 160 X10^3/uL (150.0-450.0); RED BLOOD COUNT 4.07 X10^6/uL (3.5-5.4); RED CELL DISTRIBUTION WIDTH 14.9 % (11.6-16.5); WHITE BLOOD COUNT 2.8 X10^3/uL (3.6-10.0)
[2020-02-19 07:12] LABS: ALANINE AMINOTRANSFERASE 38 Units/L (12-78); ALBUMIN 2.5 g/dL (3.4-5.0); ALKALINE PHOSPHATASE 120 Units/L (46-116); ASPARTATE AMINO TRANSFERASE 43 Units/L (15-37); BLOOD UREA NITROGEN 11 mg/dL (7-18); CALCIUM 8.1 mg/dL (8.5-10.1); CARBON DIOXIDE 25.8 mmol/L (21-32); CHLORIDE 103 mmol/L (98-107); COR CA(FOR HYPOALB) 9.3 mg/dL (8.5-10.1); COR NA(FOR HYPERGLY) 137 mmol/L (136-145); CREATININE 1.01 mg/dL (0.55-1.02); SODIUM 136 mmol/L (136-145); TOTAL PROTEIN 6.9 g/dL (6.4-8.2); eGFR NON BLACK RACES 60 (>60)
[2020-02-19] MEDS: LASIX IVP SCH ×2 (08:50→17:06)
[2020-02-19] MEDS: COLACE CAP 100 MG PO SCH (08:50)
[2020-02-19] MEDS: ZESTRIL TAB 5 MG PO SCH (08:50)
[2020-02-19] MEDS: GLUCOTROL XL 24-HR PO SCH (08:50)
[2020-02-19] MEDS: VSL#3 PO SCH (08:51)
[2020-02-19] MEDS: SILVADENE TOP SCH (08:51)
[2020-02-19] MEDS: LOVENOX INJ 40 MG SYR SC SCH (08:58)
[2020-02-19] MEDS: ATARAX TAB 25 MG PO PRN (09:12)
[2020-02-19] MEDS: VANCOMYCIN HCL 500 MG, VANCOMYCIN HCL 1 G in D5W 250 ML IV 250 ML IV SCH (15:30)
--- NOTE | 2020-02-19 15:52 | RAD ---
HISTORYPICC LINE PLACEMENTSTUDYCHEST, 1 VIEWCOMPARISONPrevious chest radiograph from 02/14/2020FINDINGSSince the previous exam, a left-sided PICC line has been placed. Tip of the catheter extends to the superior vena cava just above the caval atrial junction.Generalized cardiomegaly is again noted. Lungs are clear with no infiltrate or significant effusion on either side. Bony thorax is unremarkable.IMPRESSION1. Status post placement of PICC line via left upper extremity. Tip catheter is located just above the caval atrial junction.2. Mild cardiomegalyElectronically signed by: ABIMBOLA MELENDREZ (Feb 19, 2020 15:50:51)
--- NOTE | 2020-02-19 16:03 | DR.UPDATE ---
H&P Update History and Physical Update: History and Physical reviewed and patient examined. Changes noted: NO Yes with the following:will place picc as ordered by Dr Marcano. H&P Reviewed: Yes Patient was examined?: Yes Procedures (ALL) - Central Line Placement PCM.CLCO: written consent Time out performed: Yes Patient placed pm monitor/pulse ox: Yes MD prep: mask, gown, gloves, other Centrial line prep: chlorhexidine scrub Local anesthsia used: lidocane 1% Ultrasound used for placement: Yes (left basilic id'd via u/s) Central line lumen ininserted: double (5fr picc. 50cm total length, 6cm exposed.) Post procedure: good blood return, all ports aspirated, flushed,capped, sterile dressing applied Post procedure xray: tip oc catheter in good position (just above atrial-caval junction.), no pneumothorax seen Patient tolerated procedure: Yes Complications: none
[2020-02-19 16:25] VITALS: BP 129/71
--- NOTE | 2020-02-21 09:38 | PCM.PROG ---
Progress Note - Progress Note for Day of Date of Exam: 02/17/20 - Subjective Subjective: IS BEING TREATED FOR RIGHT FOOT AND LEG CELLULITIS AND OSTEOMYELITIS OF THE RIGHT FOOT. TOOK PATIENT TO THE OR ON TUESDAY FOR DEBRIDEMENT OF WOUND TO FOOT. TODAY, SHE IS ALERT AND ORIENTED, LYING IN BED ON MORNING ROUNDS. SHE CONTINUES WITH ERYTHEMA AND EDEMA TO THE RIGHT FOOT AND LEG. THERE IS ALSO REDNESS AND EDEMA NOTED TO THE LEFT LEG. SHE REPORTS PAIN TO THE RIGHT FOOT TODAY. ERYTHEMA AND EDEMA HAVE SLIGHTLY IMPROVED SINCE YESTERDAY. ON EXAMINATION, HEART IS REGULAR IN RATE AND RHYTHM. BILATERAL LUNGS ARE NOTED WITH DIMINISHED LUNG SOUNDS THROUGHOUT. ABDOMEN IS ROUND, SOFT, AND NON-TENDER WITH NORMAL BOWEL SOUNDS NOTED IN ALL QUADRANTS. BILATERAL LEGS NOTED WITH ERYTHEMA AND 1+ PITTING EDEMA. THERE IS A DRESSING TO THE RIGHT FOOT. HER VITALS THIS MORNING ARE: 97.9-92-20-99%-141/86. LABS WERE OBTAINED. ABNORMAL LAB VALUES INCLUDE THE FOLLOWING: WBC 3.2, SODIUM 135, POTASSIUM 5.2, CREATININE 1.12, GLUCOSE 110, AST 39, ALK PHOS 134, CRP 13.50, ALBUMIN 2.8, GLOBULIN 4.7. WOUND AND BLOOD CULTURES ARE PENDING. SHE IS CURRENTLY RECEIVING: NS AT 75 ML/HR, LAS IX 20MG IV BID, VANCOMYCIN 1.5G IV DAILY, LOVENOX 40MG SC DAILY, HUMULIN R SLIDING SCALE, OTBS ACHS, PERCOCET 5/325MG PO Q4H PRN, HCTZ 12.5MG PO DAILY PRN, ZESTRIL 5MG PO DAILY, COLACE 100MG PO BID, AND BENADRYL 25MG PO Q6H PRN. WE WILL CONTINUE WITH CURRENT PLAN OF CARE TODAY. WILL CONTINUE TO MONITOR WOUNDS. OTHERWISE, WE WILL FOLLOW UP WITH AM LABS AND CONTINUE TO MONITOR. - Past Medical Family Social History Past Med/Fam/Surg Hx: No changes since H&P Allergies: Allergies No Known Drug Allergies Allergy (Verified 01/31/20 15:35) - Review of Systems ROS: No change since H&P - Vital Signs and I&O's Vital Signs: Temperature 98.0 F Pulse Rate [Left Radial] 92 Pulse Rate 79 Respiratory Rate 18 Blood Pressure [Left Arm] 154/65 Blood Pressure [Right Arm] 129/71 Blood Pressure 137/89 O2 Sat by Pulse Oximetry 97 Intake and Output: Intake & Output 02/18/20 02/19/20 02/20/20 02/21/20 11:59 11:59 11:59 11:59 Intake Total 3357 / 3357 2610 / 2610 860 / 860 Balance 3357 / 3357 2610 / 2610 860 / 860 - Physical Exam Oriented: Normal Eyes: Normal Ear: Normal Nose: Normal Throat: Normal Respiratory: Normal Cardiovascular: Edema (1+ PITTING EDEMA TO LOWER EXTREMITIES ) : Normal Auscultation: Bowel Sounds: Normal Palpation: Normal Tenderness: Normal Skin: Wound (Rt foot ulcers and cellulitis are subsiding . no active drainage .. 2+ edema both legs .) Musculoskeletal: Normal Psychiatric: Normal Mood Description: Calm Affect: Normal Speech Pattern: Clear, Appropriate - Laboratory and Diagnostics Result Diagrams: 02/19/20 06:30 02/19/20 06:30 Labs: 02/14/20 19:40 Blood Blood Culture - Final 02/14/20 19:20 Blood Blood Culture - Final 02/15/20 12:47 Foot - Right Gram Stain - Final 02/15/20 12:47 Foot - Right Wound Culture - Final Laboratory WBC 2.8 X10^3/uL (3.6-10.0) L 02/19/20 06:30 RBC 4.07 X10^6/uL (3.5-5.4) 02/19/20 06:30 Hgb 12.1 g/dL (12.0-16.0) 02/19/20 06:30 Hct 37.8 % (36.0-47.0) 02/19/20 06:30 MCV 92.9 fL (80.0-100.0) 02/19/20 06:30 MCH 29.8 pg (27.0-34.0) 02/19/20 06:30 MCHC 32.1 g/dL (33.0-35.0) L 02/19/20 06:30 RDW 14.9 % (11.6-16.5) 02/19/20 06:30 Plt Count 160 X10^3/uL (150.0-450.0) 02/19/20 06:30 MPV 7.1 fL (7.4-11.0) L 02/19/20 06:30 Neut % (Auto) 53.4 % (42.0-75.0) 02/19/20 06:30 Lymph % (Auto) 32.4 % (21.0-51.0) 02/19/20 06:30 [place] % (Auto) 13.1 % (0.0-13.0) H 02/19/20 06:30 Eos % (Auto) 0.0 % (0.9-2.9) L 02/19/20 06:30 Baso % (Auto) 1.1 % (0.2-1.0) H 02/19/20 06:30 Neut # (Auto) 1.5 x10^3/uL (2.2-4.8) L 02/19/20 06:30 Lymph # (Auto) 0.9 X10^3/uL (1.3-2.9) L 02/19/20 06:30 [place] # (Auto) 0.4 x10^3/uL (0.3-0.8) 02/19/20 06:30 Eos # (Auto) 0.0 x10^3/uL (0.0-0.2) 02/19/20 06:30 Baso # (Auto) 0.0 X10^3/uL (0.0-0.1) 02/19/20 06:30 Absolute Nucleated RBC 0.2 /100WBC 02/19/20 06:30 Sodium 136 mmol/L (136-145) 02/19/20 06:30 Corrected Sodium 137 mmol/L (136-145) 02/19/20 06:30 Potassium 4.1 mmol/L (3.5-5.1) 02/19/20 06:30 Chloride 103 mmol/L (98-107) 02/19/20 06:30 Carbon Dioxide 25.8 mmol/L (21-32) 02/19/20 06:30 BUN 11 mg/dL (7-18) 02/19/20 06:30 Creatinine 1.01 mg/dL (0.55-1.02) 02/19/20 06:30 Est GFR (MDRD) Af Amer > 60 (>60) 02/19/20 06:30 Est GFR (MDRD) Non-Af 60 (>60) 02/19/20 06:30 Glucose 135 mg/dL (65-99) H 02/19/20 06:30 POC Glucose (mg/dL) 94 mg/dL (65-99) 02/19/20 17:11 Calcium 8.1 mg/dL (8.5-10.1) L 02/19/20 06:30 Corrected Calcium 9.3 mg/dL (8.5-10.1) 02/19/20 06:30 Total Bilirubin 0.60 mg/dL (0.2-1.0) 02/19/20 06:30 AST 43 Units/L (15-37) H 02/19/20 06:30 ALT 38 Units/L (12-78) 02/19/20 06:30 Alkaline Phosphatase 120 Units/L (46-116) H 02/19/20 06:30 C-Reactive Protein 4.80 mg/L (0-3.0) H 02/19/20 06:30 Total Protein 6.9 g/dL (6.4-8.2) 02/19/20 06:30 Albumin 2.5 g/dL (3.4-5.0) L 02/19/20 06:30 Globulin 4.4 g/dL (2.5-4.5) 02/19/20 06:30 Albumin/Globulin Ratio 0.6 Ratio (1.1-2.1) L 02/19/20 06:30 Random Vancomycin 17.2 ug/mL 02/19/20 14:07 SARS-CoV-2 (PCR) Negative (NEGATIVE) 02/14/20 16:14 Tissue Pathology To follow 02/15/20 12:58 - Plan (1) Osteomyelitis Status: Acute Qualifiers: Osteomyelitis type: unspecified type Osteomyelitis location: foot Laterality: right Qualified Code(s): M86.9 - Osteomyelitis, unspecified Plan: NS AT 75 ML/HR, LASIX 20MG IV BID, VANCOMYCIN 1.5G IV DAILY, LOVENOX 40MG SC DAILY, HUMULIN R SLIDING SCALE, OTBS ACHS, PERCOCET 5/325MG PO Q4H PRN, HCTZ 12.5MG PO DAILY PRN, ZESTRIL 5MG PO DAILY, COLACE 100MG PO BID, AND BENADRYL 25MG PO Q6H PRN. WOUND CARE (2) Cellulitis of both lower extremities Status: Acute
--- NOTE | 2020-02-21 09:50 | PCM.PROG ---
Progress Note - Progress Note for Day of Date of Exam: 02/18/20 - Subjective Subjective: IS BEING TREATED FOR RIGHT FOOT AND LEG CELLULITIS AND OSTEOMYELITIS OF THE RIGHT FOOT. TOOK PATIENT TO THE OR ON TUESDAY FOR DEBRIDEMENT OF WOUND TO FOOT. TODAY, SHE IS ALERT AND ORIENTED, LYING IN BED ON MORNING ROUNDS. SHE CONTINUES WITH ERYTHEMA AND EDEMA TO THE RIGHT FOOT AND LEG, WELL THE LEFT LEG. ERYTHEMA AND EDEMA HAVE SLIGHTLY IMPROVED SINCE YESTERDAY. ON EXAMINATION, HEART IS REGULAR IN RATE AND RHYTHM. BILATERAL LUNGS ARE NOTED WITH DIMINISHED LUNG SOUNDS THROUGHOUT. ABDOMEN IS ROUND, SOFT, AND NON-TENDER WITH NORMAL BOWEL SOUNDS NOTED IN ALL QUADRANTS. BILATERAL LEGS NOTED WITH ERYTHEMA AND 1+ PITTING EDEMA. THERE IS A DRESSING TO THE RIGHT FOOT. HER VITALS THIS MORNING ARE: 98.6-92-18-98%-124/71. LABS WERE OBTAINED. ABNORMAL LAB VALUES INCLUDE THE FOLLOWING: WBC 3.1, CREATININE 1.04, AST 47, ALK PHOS 132, CRP 7.80, ALBUMIN 2.9, GLOBULIN 4.7. WOUND AND BLOOD CULTURES ARE PENDING. SHE IS CURRENTLY RECEIVING: NS AT 75 ML/HR, LASIX 20MG IV BID, VANCOMYCIN 1.5G IV DAILY, LOVENOX 40MG SC DAILY, HUMULIN R SLIDING SCALE, OTBS ACHS, PERCOCET 5/3 25MG PO Q4H PRN, HCTZ 12.5MG PO DAILY PRN, ZESTRIL 5MG PO DAILY, COLACE 100MG PO BID, AND BENADRYL 25MG PO Q6H PRN. WE WILL CONTINUE WITH CURRENT PLAN OF CARE TODAY. WILL CONTINUE TO MONITOR WOUNDS. OTHERWISE, WE WILL FOLLOW UP WITH AM LABS AND CONTINUE TO MONITOR. - Past Medical Family Social History Past Med/Fam/Surg Hx: No changes since H&P Allergies: Allergies No Known Drug Allergies Allergy (Verified 01/31/20 15:35) - Review of Systems ROS: No change since H&P - Vital Signs and I&O's Vital Signs: Temperature 98.0 F Pulse Rate [Left Radial] 92 Pulse Rate 79 Respiratory Rate 18 Blood Pressure [Left Arm] 154/65 Blood Pressure [Right Arm] 129/71 Blood Pressure 137/89 O2 Sat by Pulse Oximetry 97 Intake and Output: Intake & Output 08/02/19/20 02/20/20 02/21/20 11:59 11:59 11:59 11:59 Intake Total 3357 / 3357 2610 / 2610 860 / 860 Balance 335 / 3357 2610 / 2610 860 / 860 - Physical Exam Oriented: Normal Eyes: Normal Ear: Normal Nose: Normal Throat: Normal Respiratory: Normal Cardiovascular: Edema (1+ PITTING EDEMA TO LOWER EXTREMITIES ) : Normal Auscultation: Bowel Sounds: Normal Tenderness: Normal Skin: Wound (Rt foot ulcers and cellulitis are subsiding . no active drainage .. 2+ edema both legs .) Musculoskeletal: Normal Psychiatric: Normal Mood Description: Calm Affect: Normal Speech Pattern: Clear, Appropriate - Laboratory and Diagnostics Result Diagrams: 02/19/20 06:30 02/19/20 06:30 Labs: 02/14/20 19:40 Blood Blood Culture - Final 02/14/20 19:20 Blood Blood Culture - Final 02/15/20 12:47 Foot - Right Gram Stain - Final 02/15/20 12:47 Foot - Right Wound Culture - Final Laboratory WBC 2.8 X10^3/uL (3.6-10.0) L 02/19/20 06:30 RBC 4.07 X10^6/uL (3.5-5.4) 02/19/20 06:30 Hgb 12.1 g/dL (12.0-16.0) 02/19/20 06:30 Hct 37.8 % (36.0-47.0) 02/19/20 06:30 MCV 92.9 fL (80.0-100.0) 02/19/20 06:30 MCH 29.8 pg (27.0-34.0) 02/19/20 06:30 MCHC 32.1 g/dL (33.0-35.0) L 02/19/20 06:30 RDW 14.9 % (11.6-16.5) 02/19/20 06:30 Plt Count 160 X10^3/uL (150.0-450.0) 02/19/20 06:30 MPV 7.1 fL (7.4-11.0) L 02/19/20 06:30 Neut % (Auto) 53.4 % (42.0-75.0) 02/19/20 06:30 Lymph % (Auto) 32.4 % (21.0-51.0) 02/19/20 06:30 [place] % (Auto) 13.1 % (0.0-13.0) H 02/19/20 06:30 Eos % (Auto) 0.0 % (0.9-2.9) L 02/19/20 06:30 Baso % (Auto) 1.1 % (0.2-1.0) H 02/19/20 06:30 Neut # (Auto) 1.5 x10^3/uL (2.2-4.8) L 02/19/20 06:30 Lymph # (Auto) 0.9 X10^3/uL (1.3-2.9) L 02/19/20 06:30 [place] # (Auto) 0.4 x10^3/uL (0.3-0.8) 02/19/20 06:30 Eos # (Auto) 0.0 x10^3/uL (0.0-0.2) 02/19/20 06:30 Baso # (Auto) 0.0 X10^3/uL (0.0-0.1) 02/19/20 06:30 Absolute Nucleated RBC 0.2 /100WBC 02/19/20 06:30 Sodium 136 mmol/L (136-145) 02/19/20 06:30 Corrected Sodium 137 mmol/L (136-145) 02/19/20 06:30 Potassium 4.1 mmol/L (3.5-5.1) 02/19/20 06:30 Chloride 103 mmol/L (98-107) 02/19/20 06:30 Carbon Dioxide 25.8 mmol/L (21-32) 02/19/20 06:30 BUN 11 mg/dL (7-18) 02/19/20 06:30 Creatinine 1.01 mg/dL (0.55-1.02) 02/19/20 06:30 Est GFR (MDRD) Af Amer > 60 (>60) 02/19/20 06:30 Est GFR (MDRD) Non-Af 60 (>60) 02/19/20 06:30 Glucose 135 mg/dL (65-99) H 02/19/20 06:30 POC Glucose (mg/dL) 94 mg/dL (65-99) 02/19/20 17:11 Calcium 8.1 mg/dL (8.5-10.1) L 02/19/20 06:30 Corrected Calcium 9.3 mg/dL (8.5-10.1) 02/19/20 06:30 Total Bilirubin 0.60 mg/dL (0.2-1.0) 02/19/20 06:30 AST 43 Units/L (15-37) H 02/19/20 06:30 ALT 38 Units/L (12-78) 02/19/20 06:30 Alkaline Phosphatase 120 Units/L (46-116) H 02/19/20 06:30 C-Reactive Protein 4.80 mg/L (0-3.0) H 02/19/20 06:30 Total Protein 6.9 g/dL (6.4-8.2) 02/19/20 06:30 Albumin 2.5 g/dL (3.4-5.0) L 02/19/20 06:30 Globulin 4.4 g/dL (2.5-4.5) 02/19/20 06:30 Albumin/Globulin Ratio 0.6 Ratio (1.1-2.1) L 02/19/20 06:30 Random Vancomycin 17.2 ug/mL 02/19/20 14:07 SARS-CoV-2 (PCR) Negative (NEGATIVE) 02/14/20 16:14 Tissue Pathology To follow 02/15/20 12:58 - Plan (1) Osteomyelitis Status: Acute Qualifiers: Osteomyelitis type: unspecified type Osteomyelitis location: foot Laterality: right Qualified Code(s): M86.9 - Osteomyelitis, unspecified Plan: NS AT 75 ML/HR, LASIX 20MG IV BID, VANCOMYCIN 1.5G IV DAILY, LOVENOX 40MG SC DAILY, HUMULIN R SLIDING SCALE, OTBS ACHS, PERCOCET 5/325MG PO Q4H PRN, HCTZ 12.5MG PO DAILY PRN, ZESTRIL 5MG PO DAILY, COLACE 100MG PO BID, AND BENADRYL 25MG PO Q6H PRN. WOUND CARE (2) Cellulitis of both lower extremities Status: Acute
== END 2020-02-19 17:30 | disposition home or self-care (01) | DRG 571 ==
LOC: MED/SURG 15:20
PROVIDERS: ADMIT Internal Medicine; ATTEND Internal Medicine
DX: R94.31 Abnormal electrocardiogram [ECG] [EKG]; M86.8X7 Other osteomyelitis, ankle and foot; R23.4 Changes in skin texture; L03.116 Cellulitis of left lower limb; E11.621 Type 2 diabetes mellitus with foot ulcer; Z20.828 Contact with and (suspected) exposure to other viral communicable diseases; L97.511 Non-pressure chronic ulcer of other part of right foot limited to breakdown of skin; I87.2 Venous insufficiency (chronic) (peripheral); L03.115 Cellulitis of right lower limb; R60.0 Localized edema

== ENCOUNTER 2022-01-19 07:46 | Inpatient (IN) ==
--- NOTE | 2022-01-19 08:23 | DR.DIARMA ---
HPI Time seen Time Seen by Provider: 01/19/22 08:10 PCP Primary Care Physician: CASTRO Complaint Chief Complaint Doctor Comments: 61 y/o female ill x 4 days. Having body aches, fever, chills, sore throat, diarrhea, nausea, vomiting and abdominal pain. [place]oya ving dyspnea, has a h/o COPD. Has had coivd in the distant past, did not get vaccinated. Chief Complaint:: PATIENT C/O DIARRHEA, ABD PAIN, SORE THROAT, CHILLS, BODY ACHES, SWOLLEN LEGS SINCE LAST TUESDAY. PATIENT STATES IT STARTED TUESDAY AND IT HAS BEEN GETTING WORSE. COVID-19 Coronavirus risk:travel/contact w/high risk person: No Has patient experienced Coronavirus symptoms: Yes Coronavirus symptoms experienced: Fever and Shortness of Breath Reviewed Nurses notes reviewed: Yes Source History Provided: EMS Mode of Arrival Mode of Arrival: EMS Timing Onset of Chief Complaint: 01/15/22 PMH PMH Past Medical History: Yes Past Medical History: COPD, Diabetes and Hypertension Past Surgical History: No Surgical History: No History Family History History of Family Medical Conditions: Yes Family Medical History: Diabetes Mellitus, Cancer, [place], Coronary Artery Disease and Hypertension Social History Does patient currently use any type of tobacco product: No Does any household member use tobacco: No Alcohol Use: None Do you use any recreational Drugs:: No Lives With: Family Lives Where: Home Travel Risk Coronavirus risk:travel/contact w/high risk person: No Has patient experienced Coronavirus symptoms: Yes Coronavirus symptoms experienced: Fever and Shortness of Breath Infectious screening In the last 2 months have you had wt loss of >10#?: NO Have you had fever, night sweats or hemotysis?: No Have you traveled outside the country in the last 6 months?: No Isolation: Standard ROS Review of Systems Constitutional: Chills, Fever and Weakness ENTM: Nose Congestion and Throat Pain Respiratoy: Short of Breath Cardiovascular: No Symptoms Reported Gastrointestinal/Abdominal: Abdominal Pain, Diarrhea, Nausea and Vomiting Genitourinary: No Symptoms Reported Neurological: Weakness Musculoskeletal: Muscle Pain Integumentary: No Symptoms Reported Hematologic/Lymphatic: No Symptoms Reported Psychiatric: No Symptoms Reported All Other Systems: Reviewed and Negative PE Vital Signs Vitals: Temperature 98.2 F Pulse Rate 90 Respiratory Rate 18 Blood Pressure [Right Arm] 138/86 Blood Pressure 139/87 O2 Sat by Pulse Oximetry 99 General General Appearance: Alert and In No Apparent Distress Eyes Eye exam: PERRL and EOMI ENT ENT Exam: Mucous Membranes Moist and Other (+ pharyngeal erythema) Neck Neck Exam: Normal Inspection and Full ROM Chest Chest Inspection: Normal Inspection Respiratory Respiratory Exam: Normal Lung Sounds Bilat; negative Accessory Muscle Use or Respiratory Distress Cardiovascular Cardiovascular Exam: Regular Rate, Normal Rhythm and Normal Heart Sounds Abdominal Exam Abdominal Exam: Normal Bowel Sounds, Soft and Tenderness (all quadrants, no guarding or rebound) Extremeties Extremities Exam: Normal Inspection; negative Edema Neurologic Neurological Exam: Alert, Oriented X3 and CN II-XII Intact; negative Motor Sensory Deficit Skin Skin Exam: Warm, Dry and Other (3 mm round wound of R sole of calcaneus, + tenderness, no erythema or discharge) MDM Differential Diagnosis Differential Diagnosis: Gastroenteritis and Other (comments) (viral illness, covid, pneumonia, dehydration) COURSE Treatment Treatment: W/u inititiaed. Pt given IV fluids, IV zofran. 1046 - CXR with cardiomegaly, no obvious CHFpneumonia. + troponin 844, CK 853. AST 1,130, ALT 1,73, Na low at 127. EKG done - no STEMI. + decreased R wave progression. Clinically with probable dehydration, viral illness, abnormal troponin/liver enzymes concerning for possible non STEMI. Discussed with covering hospitalist, Dr Marcano. Will admit to hospital, continue IV fluids, follow cardiac enzymes, order an ECHO, consult with cardiology tomorrow, and cover R foot with IV antibiotics. ROR Labs Reviewed Laboratory Results Reviewed?: Yes Result Diagrams: 01/19/22 08:52 01/19/22 08:52 Laboratory: WBC 12.4 X10^3/uL (3.6-10.0) H 01/19/22 08:52 RBC 4.90 X10^6/uL (3.5-5.4) 01/19/22 08:52 Hgb 14.6 g/dL (12.0-16.0) 01/19/22 08:52 Hct 43.0 % (36.0-47.0) 01/19/22 08:52 MCV 87.9 fL (80.0-100.0) 01/19/22 08:52 MCH 29.9 pg (27.0-34.0) 01/19/22 08:52 MCHC 34.0 g/dL (33.0-35.0) 01/19/22 08:52 RDW 15.4 % (11.6-16.5) 01/19/22 08:52 Plt Count 114 X10^3/uL (150.0-450.0) L 01/19/22 08:52 MPV 10.3 fL (7.4-11.0) 01/19/22 08:52 Neut % (Auto) 76.1 % (42.0-75.0) H 01/19/22 08:52 Lymph % (Auto) 13.7 % (21.0-51.0) L 01/19/22 08:52 Powell % (Auto) 9.3 % (0.0-13.0) 01/19/22 08:52 Eos % (Auto) 0.0 % (0.9-2.9) L 01/19/22 08:52 Baso % (Auto) 0.9 % (0.2-1.0) 01/19/22 08:52 Neut # (Auto) 9.5 x10^3/uL (2.2-4.8) H 01/19/22 08:52 Lymph # (Auto) 1.7 X10^3/uL (1.3-2.9) 01/19/22 08:52 Powell # (Auto) 1.2 x10^3/uL (0.3-0.8) H 01/19/22 08:52 Eos # (Auto) 0.0 x10^3/uL (0.0-0.2) 01/19/22 08:52 Baso # (Auto) 0.1 X10^3/uL (0.0-0.1) 01/19/22 08:52 Absolute Nucleated RBC 0.3 /100WBC 01/19/22 08:52 Sodium 127 mmol/L (136-145) L 01/19/22 08:52 Corrected Sodium 128 mmol/L (136-145) L 01/19/22 08:52 Potassium 4.8 mmol/L (3.5-5.1) 01/19/22 08:52 Chloride 94 mmol/L (98-107) L 01/19/22 08:52 Carbon Dioxide 24.0 mmol/L (21-32) 01/19/22 08:52 BUN 49 mg/dL (7-18) H 01/19/22 08:52 Creatinine 1.78 mg/dL (0.55-1.02) H 01/19/22 08:52 Est GFR (MDRD) Af Amer 37 (>60) L 01/19/22 08:52 Est GFR (MDRD) Non-Af 31 (>60) L 01/19/22 08:52 Glucose 141 mg/dL (65-99) H 01/19/22 08:52 Calcium 8.7 mg/dL (8.5-10.1) 01/19/22 08:52 Corrected Calcium 9.3 mg/dL (8.5-10.1) 01/19/22 08:52 Total Bilirubin 1.10 mg/dL (0.2-1.0) H 01/19/22 08:52 AST 1130 Units/L (15-37) H 01/19/22 08:52 ALT 1073 Units/L (12-78) H 01/19/22 08:52 Alkaline Phosphatase 96 Units/L (46-116) 01/19/22 08:52 Creatine Kinase 853 Units/L (26-192) H 01/19/22 08:52 Troponin I High Sens 844.2 ng/L (4.0-60.0) H* 01/19/22 08:52 Total Protein 7.8 g/dL (6.4-8.2) 01/19/22 08:52 Albumin 3.3 g/dL (3.4-5.0) L 01/19/22 08:52 Globulin 4.5 g/dL (2.5-4.5) 01/19/22 08:52 Albumin/Globulin Ratio 0.7 Ratio (1.1-2.1) L 01/19/22 08:52 Lipase 128 Units/L (73-393) 01/19/22 08:52 SARS-CoV-2 (PCR) Negative (NEGATIVE) 01/19/22 08:20 Influenza Type A (PCR) Negative (NEGATIVE) 01/19/22 08:20 Influenza Type B (PCR) Negative (NEGATIVE) 01/19/22 08:20 RSV (PCR) Negative (NEGATIVE) 01/19/22 08:20 + numreous lab abnormalities, see "course" XRAY XRAY Interpreted by: Both X-ray Results: CXR - with cardiomegaly, no acute abnormalities. R foot - no obvious FB, no acute abnormalities. EKG Rate: 82 [place]: Normal Rhythm: NSR Block: None Hypertrophy: LAE ST: Nonsp (has decreased R wave progression) Opioid Opioid Risk Tool Age (Kevin box if 16-45): No History of Preadolescent Sexual Abuse: No Total: 0 Total Score Risk Category: Low Risk Copyright: Donell BOBO predicting aberrant behaviors Discharge Plan Diagnosis Discharge Problem: Acute hyponatremia, Non-STEMI (non-ST elevated myocardial infarction) Discharge Plan Patient Disposition: ADMITTED INPATIENT Condition: Stable
[2022-01-19] MEDS ORDERED: NS 500 ML IV 500 ML IV ONE ×2 (08:27→08:30)
[2022-01-19] MEDS ORDERED: ZOFRAN INJ 4 MG VIAL IVP ONE (08:28)
[2022-01-19] MEDS ORDERED: ZOFRAN INJ 4 MG VIAL ONE (08:30)
[2022-01-19 09:12] LABS: BASOPHILS # (AUTO) 0.1 X10^3/uL (0.0-0.1); BASOPHILS % (AUTO) 0.9 % (0.2-1.0); HEMOGLOBIN 14.6 g/dL (12.0-16.0); LYMPHOCYTES # (AUTO) 1.7 X10^3/uL (1.3-2.9); LYMPHOCYTES % (AUTO) 13.7 % (21.0-51.0); MEAN CORPUSCULAR HEMOGLOBIN 29.9 pg (27.0-34.0); MEAN CORPUSCULAR VOLUME 87.9 fL (80.0-100.0); MEAN PLATELET VOLUME 10.3 fL (7.4-11.0); MONOCYTES # (AUTO) 1.2 x10^3/uL (0.3-0.8); MONOCYTES % (AUTO) 9.3 % (0.0-13.0); NEUTROPHILS # (AUTO) 9.5 x10^3/uL (2.2-4.8); NEUTROPHILS % (AUTO) 76.1 % (42.0-75.0); RED CELL DISTRIBUTION WIDTH 15.4 % (11.6-16.5); WHITE BLOOD COUNT 12.4 X10^3/uL (3.6-10.0)
[2022-01-19 10:33] LABS: ALBUMIN 3.3 g/dL (3.4-5.0); CALCIUM 8.7 mg/dL (8.5-10.1); COR CA(FOR HYPOALB) 9.3 mg/dL (8.5-10.1); CREATININE 1.78 mg/dL (0.55-1.02); TOTAL PROTEIN 7.8 g/dL (6.4-8.2)
--- NOTE | 2022-01-19 10:48 | RAD ---
HISTORYDyspneaSTUDYAP [id number] cardiomegaly with clear lungs and pleural spaces. The left lower lung is partly obscured by the large heart. There is no definite pneumonia or CHF.IMPRESSIONCardiomegaly; no acute findings.Electronically signed by: ANTHONY JOEL (Jan 19, 2022 10:46:11)
--- NOTE | 2022-01-19 11:53 | RAD ---
HISTORYPainSTUDYRight foot four [id number] fracture or dislocation, bone destruction or articular erosion. There is apparent dorsal soft tissue swelling. Prominent plantar calcaneal enthesophyte. Midfoot joint space narrowing with small dorsal osteophyte.IMPRESSIONMild degenerative right foot changes. Soft tissue swelling.Electronically signed by: ANTHONY JOEL (Jan 19, 2022 11:51:46)
[2022-01-19] MEDS ORDERED: BUTT CREAM (COMPOUND) ONE (13:15)
[2022-01-19] MEDS ORDERED: BUTT CREAM (COMPOUND) TOP PRN (13:39)
[2022-01-19] MEDS: NS 1,000 ML IV 1,000 ML IV SCH ×2 (13:39→20:46)
[2022-01-19] MEDS ORDERED: VENTOLIN or PROAIR HFA IN PRN (14:36)
[2022-01-19] MEDS ORDERED: ULTRAM PO PRN (14:38)
[2022-01-19] MEDS ORDERED: GLUCOTROL XL 24-HR PO ONE (14:49)
[2022-01-19] MEDS ORDERED: MICRO K EXTEN CAP 10 MEQ PO ONE (14:49)
[2022-01-19] MEDS ORDERED: ZESTRIL TAB 5 MG ONE (14:49)
[2022-01-19] MEDS: HYDROCHLOROTHIAZIDE 12.5 MG CAP PO SCH (15:07)
[2022-01-19] MEDS: ANCEF VIAL 1 GRAM IVP SCH ×2 (15:07→21:07)
[2022-01-19] MEDS: NEURONTIN TAB 600 MG PO SCH ×2 (15:07→21:07)
[2022-01-19] MEDS: ZESTRIL TAB 5 MG PO SCH (15:08)
[2022-01-19] MEDS: MICRO K EXTEN CAP 10 MEQ PO SCH (15:08)
[2022-01-19] MEDS: GLUCOTROL XL 24-HR PO SCH (15:08)
[2022-01-19] MEDS ORDERED: PROVENTIL NEB TX 0.083% 2.5MG/ 3ML ONE ×2 (15:25→18:56)
[2022-01-19] MEDS: PROVENTIL NEB TX 0.083% 2.5MG/ 3ML NEB SCH ×2 (15:35→20:00)
[2022-01-19] MEDS ORDERED: NORCO 5/325 MG TAB PO PRN (16:36)
[2022-01-19] MEDS: MORPHINE SULFATE INJ 2 MG INJ IVP PRN ×2 (17:11→21:15)
[2022-01-19 18:26] LABS: URIC ACID 9.5 mg/dL (2.6-6.0)
[2022-01-20] MEDS ORDERED: CHLORASEPTIC SPRAY MT PRN (01:01)
[2022-01-20] MEDS: MORPHINE SULFATE INJ 2 MG INJ IVP PRN (01:33)
[2022-01-20] MEDS: NS 1,000 ML IV 1,000 ML IV SCH ×2 (04:11→06:25)
[2022-01-20 05:21] LABS: BASOPHILS % (AUTO) 0.3 % (0.2-1.0); HEMATOCRIT 36.1 % (36.0-47.0); LYMPHOCYTES # (AUTO) 1.6 X10^3/uL (1.3-2.9); LYMPHOCYTES % (AUTO) 14.4 % (21.0-51.0); MEAN CORPUSCULAR HEMOGLOBIN 29.7 pg (27.0-34.0); MEAN CORPUSCULAR HGB CONC 34.3 g/dL (33.0-35.0); MEAN CORPUSCULAR VOLUME 86.7 fL (80.0-100.0); MEAN PLATELET VOLUME 10.6 fL (7.4-11.0); MONOCYTES # (AUTO) 1.2 x10^3/uL (0.3-0.8); MONOCYTES % (AUTO) 10.3 % (0.0-13.0); NEUTROPHILS # (AUTO) 8.6 x10^3/uL (2.2-4.8); RED BLOOD COUNT 4.16 X10^6/uL (3.5-5.4); RED CELL DISTRIBUTION WIDTH 15.6 % (11.6-16.5); WHITE BLOOD COUNT 11.4 X10^3/uL (3.6-10.0)
[2022-01-20] MEDS: ANCEF VIAL 1 GRAM IVP SCH (05:34)
[2022-01-20] MEDS: NEURONTIN TAB 600 MG PO SCH (05:35)
[2022-01-20 05:42] LABS: ALANINE AMINOTRANSFERASE 742 Units/L (12-78); ALBUMIN 2.5 g/dL (3.4-5.0); ALKALINE PHOSPHATASE 80 Units/L (46-116); ASPARTATE AMINO TRANSFERASE 649 Units/L (15-37); BLOOD UREA NITROGEN 48 mg/dL (7-18); CALCIUM 7.8 mg/dL (8.5-10.1); CARBON DIOXIDE 20.5 mmol/L (21-32); CHLORIDE 97 mmol/L (98-107); CHOL/HDL RATIO 7.5 (0.0-5.0); CHOLESTEROL 158 mg/dL (0-200); CREATININE 1.81 mg/dL (0.55-1.02); HDL CHOLESTEROL 21 mg/dL (40-60); SODIUM 129 mmol/L (136-145); TOTAL PROTEIN 6.2 g/dL (6.4-8.2); TRIGLYCERIDES 150 mg/dL (0-150); eGFR NON BLACK RACES 30 (>60)
[2022-01-20 05:53] LABS: HEMOGLOBIN 12.4 g/dL (12.0-16.0)
[2022-01-20] MEDS: GLUCOTROL XL 24-HR PO SCH (06:05)
[2022-01-20] MEDS ORDERED: ZESTRIL TAB 5 MG ONE (06:58)
[2022-01-20] MEDS ORDERED: MICRO K EXTEN CAP 10 MEQ PO ONE (06:58)
[2022-01-20] MEDS: PROVENTIL NEB TX 0.083% 2.5MG/ 3ML NEB SCH (08:05)
[2022-01-20] MEDS ORDERED: TOPROL XL PO ONE (08:40)
[2022-01-20] MEDS ORDERED: ASPIRIN EC 81 MG PO ONE (08:40)
[2022-01-20] MEDS ORDERED: LOVENOX INJ 40 MG SYR SC ONE (08:41)
[2022-01-20] MEDS ORDERED: TOPROL XL PO SCH (09:00)
[2022-01-20] MEDS ORDERED: ASPIRIN EC 81 MG PO SCH (09:00)
[2022-01-20] MEDS ORDERED: LOVENOX INJ 40 MG SYR SC SCH (09:00)
[2022-01-20] MEDS: HYDROCHLOROTHIAZIDE 12.5 MG CAP PO SCH (09:34)
[2022-01-20] MEDS: MICRO K EXTEN CAP 10 MEQ PO SCH (09:35)
[2022-01-20] MEDS: ZESTRIL TAB 5 MG PO SCH (09:35)
[2022-01-20 10:12] VITALS: BMI 39.6
[2022-01-20 11:13] VITALS: BP 92/60
[2022-01-20] MEDS ORDERED: NEURONTIN CAP 300 MG PO SCH (14:00)
[2022-01-20] MEDS ORDERED: ANCEF VIAL 1 GRAM 1 G in NS 100 ML IV 100 ML IV SCH (14:00)
[2022-01-20] MEDS ORDERED: LIPITOR TAB 40 MG PO SCH (21:00)
--- NOTE | 2022-02-02 13:26 | DR.CARTERS ---
Short Stay Summary - Admission Date Date of Admission: 01/19/22 - Discharge Date Discharge Date: 01/20/22 - Admission Diagnoses (1) Dehydration Status: Acute (2) Elevated liver enzymes Status: Acute (3) Acute hyponatremia Status: Acute (4) Non-STEMI (non-ST elevated myocardial infarction) Status: Acute - Hospital Course Hospital Course: IS A 61 YEAR OLD PATIENT OF [facility]. SHE PRESENTED TO THE ER WITH COMPLAINTS OF FEVER, CHILLS, SHORTNESS OF BREATH, BODY ACHES, SORE THROAT, N/V/D, AND ABDOMINAL PAIN. SHE REPORTED THAT SYMPTOMS STARTED ON 01/15/22 AND HAS PROGRESSIVELY GOTTEN WORSE. SHE HAS A PMH OF COPD, DM II, AND HTN. EXAMINATION REVEALED PHARYNGEAL ERYTHEMA. ON ARRIVAL, VITALS WERE: 98.2-86-18-99%-119/89. LABS WERE OBTAINED. WBC 12.4, HGB 14.6, HCT 43.0, PLT COUNT 114, ESR 25, INR 1.50, D-DIMER 3.14, SODIUM 127, CHLORIDE 94, BUN 49, CREATININE 1.78, GLUCOSE 141, CALCIUM 8.7, TOTAL BILI 1.10, AST 1130, ALT 1073, CREATINE KINASE 853, TROPONIN 844.2, TOTAL PROTEIN 7.8, ALBUMIN 3.3, LIPASE 128. COVID, INFLUENZA, AND RSV NEGATIVE. CHEST XRAY OBTAINED AND REVEALED: Stable cardiomegaly with clear lungs and pleural spaces. The left lower lung is partly obscured by the large heart. There is no definite pneumonia or CHF. EKG REVEALED SINUS RHYTHM WITH INFERIOR T WAVE INVERSION AND ALSO LATERAL T WAVE INVERSIONS, POSSIBLY NONSPECIFIC VERSUS ISCHEMIC IN ORIGIN. IN THE ER, SHE WAS GIVEN A NORMAL SALINE BOLUS, ZOFRAN 4MG IV X 1, ANCEF 1G IV X 1. REPEAT CARDIAC ENZYMES WERE OBTAINED AT 12:46. CREATINE KINASE DECREASED TO 674, TROPONIN DECREASED TO 670.1. SHE WAS ADMITTED TO THE HOSPITAL FOR FURTHER EVALUATION AND TREATMENT OF SUSPECTED NON- STEMI, ACUTE HYPONATREMIA, DEHYDRATION, ELEVATED LIVER EYZYMES, CHF . SHE WAS STARTED ON NORMAL SALINE AT 125 ML/HR, ANCEF 1G IV Q8H, ALBUTEROL NEBS BID, MORPHINE 1-2MG IV Q4H PRN, NORCO 5/325MG PO Q6H PRN PAIN, AND HER HOME MEDICATIONS WERE RESUME. AN ECHO WAS OBTAINED AND REVEALED AN EJECTION FRACTION OF 20%, GRAD 111 DIASTOLIC DYSFUNCTION, MODERATE AORTIC VALVE STENOSIS, MODERATE MITRAL REGURGITAITON, MODERATE PULMONARY HTN, RVSP 56mmHg, SMALL PERICARDIAL EFFUSION WITH CLEAR FLUIDS, ELEVATED RIGHT ATRIAL PRESSURE.A CONSULTATION WITH , [facility], WAS ORDERED. OTHERWISE, WE PLANNED TO FOLLOW-UP WITH AM LABS AND CONTINUE TO MONITOR. ON THE MORNING FOLLOWING ADMISSION, PATIENT IS ALERT AND ORIENTED, LYING IN BED ON MORNING ROUNDS. SHE HAS INTERMITTENT EPISODES OF CHEST PRESSURE AND TIGHTNESS. SHE ALSO CONTINUES WITH BODY ACHES, SORE THROAT, AND DYSPNEA ON EXERTION. HER VITALS THIS MORNING WERE: 96.0-65-20-99%-104/69. LABS WERE REPEATED. WBC 11.4, HGB 12.4, HCT 36.1, PLT COUNT 101, SODIUM 129, POTASSIUM 4.9, CHLORIDE 97, BUN 48, CREATININE 1.81, GLUCOSE 92, CALCIUM 7.8, AST 649, ALT 742, ALK PHOS 80, TOTAL PROTEIN 6.2, ALBUMIN 2.5, CNU905, HDL 21, BNP 1990, CRP 139.50. CARDIAC ENZYMES REPEATED AT 0040. CREATINE KINASE 309, TROPONIN 453. THEY WERE REPEATED AGAIN AT 9:05. CREATINE KINASE 256, TROPOIN 373.3. CONSULTED WITH PATIENT AND PLANNED FOR TRANSFER TO [facility] TO FOR HEART CATH. PATIENT WAS TRANSFERRED VIA EMS IN STABLE CONDITION AT APPROXIMATLY 1145. TIME SPENT ON CLINICAL ASSESSMENT, REVIEWING LABS AND IMAGING, DECISION MAKING, AND DOCUMENTATION GREATER THAN 75 MINUTES. - Discharge Medications Discharge Medications: Home Medication List albuterol 90 mcg/actuation aerosol inhaler 90 mcg inhalation QID 01/19/22 [History] albuterol sulfate 0.63 mg/3 mL solution for nebulization 0.63 mg inhalation DAILY 01/19/22 [History] furosemide 20 mg tablet 20 mg PO DAILY PRN SWELLIMG 01/19/22 [History] gabapentin 600 mg tablet 600 mg PO TID 01/19/22 [History] tramadol 50 mg tablet 50 mg PO BID PRN Pain 01/19/22 [History] Prescriptions: - Discharge Plan Disposition: [facility] Condition: Stable - Follow up/Referrals Follow up/Referrals: LESTER CASTRO [Primary Care Provider] - 3 days - Instructions
== END 2022-01-20 11:52 | disposition short-term general hospital (02) | DRG 281 ==
LOC: ER 07:46 → ICU 07:46 → OBSVTOIN 11:46 → ICU 12:36
PROVIDERS: ADMIT Internal Medicine; ATTEND Internal Medicine
DX: R79.1 Abnormal coagulation profile; M79.671 Pain in right foot; R06.02 Shortness of breath; Z20.822 Contact with and (suspected) exposure to COVID-19; R94.31 Abnormal electrocardiogram [ECG] [EKG]; R77.8 Other specified abnormalities of plasma proteins; E78.2 Mixed hyperlipidemia; R70.0 Elevated erythrocyte sedimentation rate; E66.9 Obesity, unspecified; E86.0 Dehydration; E87.1 Hypo-osmolality and hyponatremia; E11.65 Type 2 diabetes mellitus with hyperglycemia; R19.7 Diarrhea, unspecified; I21.A1 Myocardial infarction type 2; J44.9 Chronic obstructive pulmonary disease, unspecified; I10 Essential (primary) hypertension; R79.82 Elevated C-reactive protein (CRP)

== ENCOUNTER 2022-02-02 17:41 | Inpatient (IN) ==
--- NOTE | 2022-02-02 17:59 | DR.AMS ---
HPI <Abdiel Paul - Last Filed: 02/04/22 08:03> Time Seen Time Seen by Provider: 02/02/22 17:57 PCP Primary Care Physician: Katerin Link Complaint Cheif Complaint Doctors Comments: 61 y/o female brought in for evaluation. Has recently been treated for RLE cellulitis. Has recently had a nonSTEMI with subsequent cardiomyopathy. Pt had vomiting and diarrhea earlier today, was given zofran by Hospice nurse. Pt now with altered mental status this afternoon. Pt is confused, could not recognize her daughter initially. Unable to offer reliable complaints. Pt trying to follow instructions. Chief Complaint:: EMS states pt has new onset altered mental status and tremors. Pt is able to state name and but not date, day, year or location. She does not recognize daughter at bedside. Pt is on hospice due to nonstemi and EF 5%- 10%. COVID-19 Coronavirus risk:travel/contact w/high risk person: No Has patient experienced Coronavirus symptoms: Yes Coronavirus symptoms experienced: Fever Reviewed Nurses Notes Reviewed: Yes Source History Provided: EMS Mode of Arrival Mode of Arrival: Stretcher Timing Onset of Chief Complaint: 02/02/22 PMH <Abdiel aPul - Last Filed: 02/04/22 08:03> PMH Past Medical History: Yes Past Medical History: COPD, Diabetes and Hypertension Past Surgical History: No Surgical History: No History Family History History of Family Medical Conditions: Yes Family Medical History: Diabetes Mellitus and Coronary Artery Disease Social History Do you use any recreational Drugs:: No Travel Risk Coronavirus risk:travel/contact w/high risk person: No Has patient experienced Coronavirus symptoms: Yes Coronavirus symptoms experienced: Fever Infectious screening In the last 2 months have you had wt loss of >10#?: NO Have you had fever, night sweats or hemotysis?: No Have you traveled outside the country in the last 6 months?: No Isolation: Droplet ROS <Abdiel Paul - Last Filed: 02/04/22 08:03> Review of Systems Unable to Obtain Due To: Altered mental status PE <Abdiel Paul - Last Filed: 02/04/22 08:03> Vitals Vital Signs: Temp Pulse Resp BP BP BP Pulse Ox 03/03/20 10:26 119/78 02/02/22 21:15 92 H 32 H 97 02/02/22 21:02 102/72 02/02/22 21:02 126 H 42 H 99 02/02/22 21:00 112 H 47 H 98 02/02/22 20:45 136 H 31 H 98 02/02/22 20:31 85 28 H 98 02/02/22 20:31 153/87 02/02/22 20:30 86 34 H 98 02/02/22 20:20 85 27 H 02/02/22 18:45 76 93 L 02/02/22 18:43 109/63 02/02/22 18:43 80 98 02/02/22 18:42 96 02/02/22 18:15 80 40 H 98 02/02/22 18:00 78 95 02/02/22 17:58 79 95 02/02/22 17:58 124/74 02/02/22 17:42 100.9 F H 65 26 H 134/88 98 01/20/22 11:08 92/60 01/20/22 08:05 09/16/21 22:50 138/86 O2 Del Method FiO2 03/03/20 10:26 02/02/22 21:15 02/02/22 21:02 02/02/22 21:02 02/02/22 21:00 02/02/22 20:45 02/02/22 20:31 02/02/22 20:31 02/02/22 20:30 02/02/22 20:20 02/02/22 18:45 02/02/22 18:43 02/02/22 18:43 02/02/22 18:42 02/02/22 18:15 02/02/22 18:00 02/02/22 17:58 02/02/22 17:58 02/02/22 17:42 Nasal Cannula 01/20/22 11:08 01/20/22 08:05 28 09/16/21 22:50 General General Appearance: Other (awake, but somnolent, easily arousable. Tries to follow some commands, not verbal for MD, + generalized weakness. ) Head Head Exam: Normal Inspection Eyes Eye exam: PERRL (2 mm bilaterally) and EOMI ENT Mouth Exam: Normal Inspection Neck Neck Exam: Normal Inspection; negative Tenderness Respiratory Respiratory Exam: Normal Lung Sounds Bilat; negative Accessory Muscle Use or Respiratory Distress Respiratory Exam: Bilateral: Clear to Auscultation Cardiovascular Cardiovascular Exam: Regular Rate, Normal Rhythm and Normal Heart Sounds Abdominal Exam Abdominal Exam: Normal Bowel Sounds and Soft; negative Tenderness Extremities Extremities Exam: Other (+ erythema of RLE); negative Edema Skin Skin Exam: Warm, Dry and Erythema (+ confluent erythema of RLE, rogers on down. ) <Jeannette Weeks - Last Filed: 02/03/22 01:22> Vitals Vital Signs: Temp Pulse Resp BP BP BP Pulse Ox 03/03/20 10:26 119/78 02/02/22 21:15 92 H 32 H 97 02/02/22 21:02 102/72 02/02/22 21:02 126 H 42 H 99 02/02/22 21:00 112 H 47 H 98 02/02/22 20:45 136 H 31 H 98 02/02/22 20:31 85 28 H 98 02/02/22 20:31 153/87 02/02/22 20:30 86 34 H 98 02/02/22 20:20 85 27 H 02/02/22 18:45 76 93 L 02/02/22 18:43 109/63 02/02/22 18:43 80 98 02/02/22 18:42 96 02/02/22 18:15 80 40 H 98 02/02/22 18:00 78 95 02/02/22 17:58 79 95 02/02/22 17:58 124/74 02/02/22 17:42 100.9 F H 65 26 H 134/88 98 01/20/22 11:08 92/60 01/20/22 08:05 09/16/21 22:50 138/86 O2 Del Method FiO2 03/03/20 10:26 02/02/22 21:15 02/02/22 21:02 02/02/22 21:02 02/02/22 21:00 02/02/22 20:45 02/02/22 20:31 02/02/22 20:31 02/02/22 20:30 02/02/22 20:20 02/02/22 18:45 02/02/22 18:43 02/02/22 18:43 02/02/22 18:42 02/02/22 18:15 02/02/22 18:00 02/02/22 17:58 02/02/22 17:58 02/02/22 17:42 Nasal Cannula 01/20/22 11:08 01/20/22 08:05 28 09/16/21 22:50 COURSE <Abdiel Paul - Last Filed: 02/04/22 08:03> Treatment Treatment: 61 y/o female with altered MS this afternoon. + running a temp. W/u initiated. Given IV fluids, tylenol suppository. <Jeannette Weeks - Last Filed: 02/03/22 01:22> Treatment Treatment: 61 y/o female with altered MS this afternoon. + running a temp. W/u initiated. Given IV fluids, tylenol suppository. [address] Paul; pt alert, talkative, interacting with family Reevaluation 1st: Improved (eating) Consultation Call Returned: 21:11 (Dr Amos actually not collection correspondent but [facility] ROR <Abdiel Paul - Last Filed: 02/04/22 08:03> Labs Reviewed Result Diagrams: 02/04/22 04:35 02/04/22 04:35 Laboratory: 02/02/22 18:21 Urine,Catheterized Urine Culture - Preliminary WBC 12.2 X10^3/uL (3.6-10.0) H 02/02/22 19:10 RBC 4.38 X10^6/uL (3.5-5.4) 02/02/22 19:10 Hgb 13.1 g/dL (12.0-16.0) 02/02/22 19:10 Hct 39.2 % (36.0-47.0) 02/02/22 19:10 MCV 89.7 fL (80.0-100.0) 02/02/22 19:10 MCH 30.0 pg (27.0-34.0) 02/02/22 19:10 MCHC 33.4 g/dL (33.0-35.0) 02/02/22 19:10 RDW 15.4 % (11.6-16.5) 02/02/22 19:10 Plt Count 202 X10^3/uL (150.0-450.0) 02/02/22 19:10 MPV 9.2 fL (7.4-11.0) 02/02/22 19:10 Neut % (Auto) 81.7 % (42.0-75.0) H 02/02/22 19:10 Lymph % (Auto) 9.1 % (21.0-51.0) L 02/02/22 19:10 Bryan % (Auto) 8.6 % (0.0-13.0) 02/02/22 19:10 Eos % (Auto) 0.0 % (0.9-2.9) L 02/02/22 19:10 Baso % (Auto) 0.6 % (0.2-1.0) 02/02/22 19:10 Neut # (Auto) 10.0 x10^3/uL (2.2-4.8) H 02/02/22 19:10 Lymph # (Auto) 1.1 X10^3/uL (1.3-2.9) L 02/02/22 19:10 Bryan # (Auto) 1.0 x10^3/uL (0.3-0.8) H 02/02/22 19:10 Eos # (Auto) 0.0 x10^3/uL (0.0-0.2) 02/02/22 19:10 Baso # (Auto) 0.1 X10^3/uL (0.0-0.1) 02/02/22 19:10 Absolute Nucleated RBC 0.1 /100WBC 02/02/22 19:10 Sodium 131 mmol/L (136-145) L 02/02/22 19:10 Corrected Sodium 134 mmol/L (136-145) L 02/02/22 19:10 Potassium 5.4 mmol/L (3.5-5.1) H 02/02/22 19:10 Chloride 96 mmol/L (98-107) L 02/02/22 19:10 Carbon Dioxide 26.8 mmol/L (21-32) 02/02/22 19:10 BUN 40 mg/dL (7-18) H 02/02/22 19:10 Creatinine 2.17 mg/dL (0.55-1.02) H 02/02/22 19:10 Est GFR (MDRD) Af Amer 30 (>60) L 02/02/22 19:10 Est GFR (MDRD) Non-Af 25 (>60) L 02/02/22 19:10 Glucose 228 mg/dL (65-99) H 02/02/22 19:10 Lactic Acid 2.1 mmol/L (0.4-2.0) H 02/02/22 19:10 Calcium 8.5 mg/dL (8.5-10.1) 02/02/22 19:10 Corrected Calcium 9.2 mg/dL (8.5-10.1) 02/02/22 19:10 Total Bilirubin 1.20 mg/dL (0.2-1.0) H 02/02/22 19:10 AST 173 Units/L (15-37) H 02/02/22 19:10 ALT 110 Units/L (12-78) H 02/02/22 19:10 Alkaline Phosphatase 156 Units/L (46-116) H 02/02/22 19:10 Creatine Kinase 445 Units/L (26-192) H 02/02/22 19:10 Troponin I High Sens 31422.0 ng/L (4.0-60.0) H* 02/02/22 19:10 Total Protein 7.5 g/dL (6.4-8.2) 02/02/22 19:10 Albumin 3.1 g/dL (3.4-5.0) L 02/02/22 19:10 Globulin 4.4 g/dL (2.5-4.5) 02/02/22 19:10 Albumin/Globulin Ratio 0.7 Ratio (1.1-2.1) L 02/02/22 19:10 Specimen Type Catherized urine 02/02/22 18:21 Urine Color Yellow (YELLOW) 02/02/22 18:21 Urine Appearance Hazy (CLEAR) 02/02/22 18:21 Urine pH 5.0 (5.0 - 8.0) 02/02/22 18:21 Ur Specific [place] 1.020 (1.000-1.030) 02/02/22 18:21 Urine Protein 3+ (NEGATIVE) 02/02/22 18:21 Urine Glucose (UA) Negative (NEGATIVE) 02/02/22 18:21 Urine Ketones 1+ (NEGATIVE) 02/02/22 18:21 Urine Blood 5+ (NEGATIVE) 02/02/22 18: Urine Nitrite Negative (NEGATIVE) 02/02/22 18:21 Urine Bilirubin Negative (NEGATIVE) 02/02/22 18:21 Urine Urobilinogen Normal (NORMAL) 02/02/22 18:21 Ur Leukocyte Esterase 3+ (NEGATIVE) 02/02/22 18:21 Urine RBC 10-20 /HPF (0-3) A 02/02/22 18:21 Urine WBC 30-50 /HPF (0-5) A 02/02/22 18:21 Ur Squamous Epith Cells Few /HPF (NEGATIVE) 02/02/22 18:21 Urine Bacteria 1+ /HPF (NEGATIVE) 02/02/22 18:21 Ur Culture Indicated? Yes/culture set up 02/02/22 18:21 Urine Opiates Screen Positive (NEG=<300) A 02/02/22 18: Urine Methadone Screen Negative (NEG=<300) 02/02/22 18:21 Ur Barbiturates Screen Negative (NEG=<200) 02/02/22 18:21 Ur Phencyclidine Scrn Negative (NEG=<25) 02/02/22 18:21 Ur Amphetamines Screen Negative (NEG=<1000) 02/02/22 18:21 U Benzodiazepines Scrn Negative (NEG=<200) 02/02/22 18:21 Urine Cocaine Screen Negative (NEG=<300) 02/02/22 18:21 U Marijuana (THC) Screen Negative (NEG=<50) 02/02/22 18:21 SARS-CoV-2 (PCR) Negative (NEGATIVE) 02/02/22 18:00 Influenza Type A (PCR) Negative (NEGATIVE) 02/02/22 18:00 Influenza Type B (PCR) Negative (NEGATIVE) 02/02/22 18:00 RSV (PCR) Negative (NEGATIVE) 02/02/22 18:00 EKG Rate: 80 [place]: Normal Rhythm: NSR Block: None ST: Nonsp <Jeannette Weeks - Last Filed: 02/03/22 01:22> Labs Reviewed Laboratory Results Reviewed?: Yes Laboratory: 02/02/22 18:21 Urine,Catheterized Urine Culture - Preliminary WBC 12.2 X10^3/uL (3.6-10.0) H 02/02/22 19:10 RBC 4.38 X10^6/uL (3.5-5.4) 02/02/22 19:10 Hgb 13.1 g/dL (12.0-16.0) 02/02/22 19:10 Hct 39.2 % (36.0-47.0) 02/02/22 19:10 MCV 89.7 fL (80.0-100.0) 02/02/22 19:10 MCH 30.0 pg (27.0-34.0) 02/02/22 19:10 MCHC 33.4 g/dL (33.0-35.0) 02/02/22 19:10 RDW 15.4 % (11.6-16.5) 02/02/22 19:10 Plt Count 202 X10^3/uL (150.0-450.0) 02/02/22 19:10 MPV 9.2 fL (7.4-11.0) 02/02/22 19:10 Neut % (Auto) 81.7 % (42.0-75.0) H 02/02/22 19:10 Lymph % (Auto) 9.1 % (21.0-51.0) L 02/02/22 19:10 Bryan % (Auto) 8.6 % (0.0-13.0) 02/02/22 19:10 Eos % (Auto) 0.0 % (0.9-2.9) L 02/02/22 19:10 Baso % (Auto) 0.6 % (0.2-1.0) 02/02/22 19:10 Neut # (Auto) 10.0 x10^3/uL (2.2-4.8) H 02/02/22 19:10 Lymph # (Auto) 1.1 X10^3/uL (1.3-2.9) L 02/02/22 19:10 Bryan # (Auto) 1.0 x10^3/uL (0.3-0.8) H 02/02/22 19:10 Eos # (Auto) 0.0 x10^3/uL (0.0-0.2) 02/02/22 19:10 Baso # (Auto) 0.1 X10^3/uL (0.0-0.1) 02/02/22 19:10 Absolute Nucleated RBC 0.1 /100WBC 02/02/22 19:10 Sodium 131 mmol/L (136-145) L 02/02/22 19:10 Corrected Sodium 134 mmol/L (136-145) L 02/02/22 19:10 Potassium 5.4 mmol/L (3.5-5.1) H 02/02/22 19:10 Chloride 96 mmol/L (98-107) L 02/02/22 19:10 Carbon Dioxide 26.8 mmol/L (21-32) 02/02/22 19:10 BUN 40 mg/dL (7-18) H 02/02/22 19:10 Creatinine 2.17 mg/dL (0.55-1.02) H 02/02/22 19:10 Est GFR (MDRD) Af Amer 30 (>60) L 02/02/22 19:10 Est GFR (MDRD) Non-Af 25 (>60) L 02/02/22 19:10 Glucose 228 mg/dL (65-99) H 02/02/22 19:10 Lactic Acid 2.1 mmol/L (0.4-2.0) H 02/02/22 19:10 Calcium 8.5 mg/dL (8.5-10.1) 02/02/22 19:10 Corrected Calcium 9.2 mg/dL (8.5-10.1) 02/02/22 19:10 Total Bilirubin 1.20 mg/dL (0.2-1.0) H 02/02/22 19:10 AST 173 Units/L (15-37) H 02/02/22 19:10 ALT 110 Units/L (12-78) H 02/02/22 19:10 Alkaline Phosphatase 156 Units/L (46-116) H 02/02/22 19:10 Creatine Kinase 445 Units/L (26-192) H 02/02/22 19:10 Troponin I High Sens 44265.0 ng/L (4.0-60.0) H* 02/02/22 19:10 Total Protein 7.5 g/dL (6.4-8.2) 02/02/22 19:10 Albumin 3.1 g/dL (3.4-5.0) L 02/02/22 19:10 Globulin 4.4 g/dL (2.5-4.5) 02/02/22 19:10 Albumin/Globulin Ratio 0.7 Ratio (1.1-2.1) L 02/02/22 19:10 Specimen Type Catherized urine 02/02/22 18: Urine Color Yellow (YELLOW) 02/02/22 18: Urine Appearance Hazy (CLEAR) 02/02/22 18:21 Urine pH 5.0 (5.0 - 8.0) 02/02/22 18:21 Ur Specific [place] 1.020 (1.000-1.030) 02/02/22 18:21 Urine Protein 3+ (NEGATIVE) 02/02/22 18:21 Urine Glucose (UA) Negative (NEGATIVE) 02/02/22 18: Urine Ketones 1+ (NEGATIVE) 02/02/22 18: Urine Blood 5+ (NEGATIVE) 02/02/22 18: Urine Nitrite Negative (NEGATIVE) 02/02/22 18: Urine Bilirubin Negative (NEGATIVE) 02/02/22 18: Urine Urobilinogen Normal (NORMAL) 02/02/22 18: Ur Leukocyte Esterase 3+ (NEGATIVE) 02/02/22 18: Urine RBC 10-20 /HPF (0-3) A 02/02/22 18:21 Urine WBC 30-50 /HPF (0-5) A 02/02/22 18:21 Ur Squamous Epith Cells Few /HPF (NEGATIVE) 02/02/22 18: Urine Bacteria 1+ /HPF (NEGATIVE) 02/02/22 18:21 Ur Culture Indicated? Yes/culture set up 02/02/22 18:21 Urine Opiates Screen Positive (NEG=<300) A 02/02/22 18: Urine Methadone Screen Negative (NEG=<300) 02/02/22 18:21 Ur Barbiturates Screen Negative (NEG=<200) 02/02/22 18:21 Ur Phencyclidine Scrn Negative (NEG=<25) 02/02/22 18: Ur Amphetamines Screen Negative (NEG=<1000) 02/02/22 18: U Benzodiazepines Scrn Negative (NEG=<200) 02/02/22 18:21 Urine Cocaine Screen Negative (NEG=<300) 02/02/22 18:21 U Marijuana (THC) Screen Negative (NEG=<50) 02/02/22 18:21 SARS-CoV-2 (PCR) Negative (NEGATIVE) 02/02/22 18:00 Influenza Type A (PCR) Negative (NEGATIVE) 02/02/22 18:00 Influenza Type B (PCR) Negative (NEGATIVE) 02/02/22 18:00 RSV (PCR) Negative (NEGATIVE) 02/02/22 18:00 XRAY XRAY Interpreted by: Radiologist X-ray Results: cxr: No imaging findings of acute cardiopulmonary disease or significant changes. ct brain: No acute intracranial abnormality identified. Opioid <Abdiel Paul - Last Filed: 02/04/22 08:03> Opioid Risk Tool Age (Kevin box if 16-45): No History of Preadolescent Sexual Abuse: No Total: 0 Total Score Risk Category: Low Risk Copyright: Donell BOBO predicting aberrant behaviors <Jeannette Weeks - Last Filed: 02/03/22 01:22> Opioid Risk Tool Total: 0 Total Score Risk Category: Low Risk Discharge Plan Diagnosis Discharge Problem: UTI (urinary tract infection), Acute renal failure (ARF), Acute hyperkalemia, Elevated troponin Cardiomyopathy Qualifiers: Cardiomyopathy type: ischemic Qualified Code(s): I25.5 - Ischemic cardiomyopathy Discharge Plan Patient Disposition: 09 ADMITTED INPATIENT Condition: Stable
[2022-02-02] MEDS ORDERED: NS 500 ML IV 500 ML IV ONE ×2 (18:01→18:04)
[2022-02-02] MEDS ORDERED: TYLENOL SUPP 325 MG ONE (18:04)
[2022-02-02] MEDS ORDERED: NARCAN INJ ONE (18:07)
[2022-02-02] MEDS ORDERED: ZOFRAN INJ 4 MG VIAL ONE (18:07)
[2022-02-02] MEDS ORDERED: TYLENOL SUPP 650 MG PR ONE (18:09)
[2022-02-02] MEDS ORDERED: ZOFRAN INJ 4 MG VIAL IVP ONE (18:09)
[2022-02-02] MEDS ORDERED: NARCAN INJ IVP ONE (18:09)
[2022-02-02 18:54] LABS: BILIRUBIN,URINE NEGATIVE (NEGATIVE); BLOOD/HEMOGLOBIN,URINE 5+ (NEGATIVE); GLUCOSE, URINE NEGATIVE (NEGATIVE); KETONES,URINE 1+ (NEGATIVE); LEUKOCYTE ESTERASE ,URINE 3+ (NEGATIVE); NITRITES,URINE NEGATIVE (NEGATIVE); PROTEIN,URINE 3+ (NEGATIVE); UROBILINOGEN,URINE NORMAL (NORMAL)
[2022-02-02 19:02] LABS: APPEARANCE,URINE HAZY (CLEAR); BACTERIA,URINE 1+ /HPF (NEGATIVE); COLOR,URINE YELLOW (YELLOW); SQUAMOUS EPITHELIAL CELL,UR FEW /HPF (NEGATIVE)
--- NOTE | 2022-02-02 19:09 | CT ---
HISTORYNew onset ams and tremors. Pt is able to state name and but not date, day, year or location. She does not recognize daughter at bedside. Pt is on hospice due to nonstemi and EF 5%-10%STUDYBRAIN W/O CONCOMPARISONNone available.TECHNIQUEAxial non-contrast images of the head were obtained with coronal and sagittal reformats provided.Radiation dose: 1076.50 mGy-cm total DLPFINDINGSNo abnormal areas of acute attenuation in the brain parenchyma.Malik-white differentiation remains intact.No intracranial, extra-axial, fluid collection.No hemorrhage.Periventricular chronic microvascular disease.No mass, mass effect or midline shift.Age related brain parenchymal global atrophy.No ventriculomegaly.No acute fracture.Sinuses are well aerated.Mastoid air cells are well aerated.Globes and intra-orbital contents are unremarkable.IMPRESSIONNo acute intracranial abnormality identified.Electronically signed by: Domingo Andrew (Feb 02, 2022 19:06:59)
[2022-02-02] MEDS ORDERED: ROCEPHIN VIAL 1 GRAM 1 G in NS 100 ML IV 100 ML IV ONE (19:10)
[2022-02-02] MEDS ORDERED: ROCEPHIN VIAL 1 GRAM ONE (19:14)
[2022-02-02] MEDS ORDERED: NS 50 ML IV 50 ML IV ONE (19:14)
[2022-02-02 19:32] LABS: BASOPHILS # (AUTO) 0.1 X10^3/uL (0.0-0.1); BASOPHILS % (AUTO) 0.6 % (0.2-1.0); HEMATOCRIT 39.2 % (36.0-47.0); HEMOGLOBIN 13.1 g/dL (12.0-16.0); LYMPHOCYTES # (AUTO) 1.1 X10^3/uL (1.3-2.9); LYMPHOCYTES % (AUTO) 9.1 % (21.0-51.0); MEAN CORPUSCULAR HGB CONC 33.4 g/dL (33.0-35.0); MEAN CORPUSCULAR VOLUME 89.7 fL (80.0-100.0); MEAN PLATELET VOLUME 9.2 fL (7.4-11.0); MONOCYTES % (AUTO) 8.6 % (0.0-13.0); NEUTROPHILS % (AUTO) 81.7 % (42.0-75.0); RED BLOOD COUNT 4.38 X10^6/uL (3.5-5.4); RED CELL DISTRIBUTION WIDTH 15.4 % (11.6-16.5); WHITE BLOOD COUNT 12.2 X10^3/uL (3.6-10.0)
[2022-02-02 19:46] LABS: LACTIC ACID 2.1 mmol/L (0.4-2.0)
[2022-02-02 19:56] LABS: ALBUMIN 3.1 g/dL (3.4-5.0); CALCIUM 8.5 mg/dL (8.5-10.1); CARBON DIOXIDE 26.8 mmol/L (21-32); COR CA(FOR HYPOALB) 9.2 mg/dL (8.5-10.1); CREATININE 2.17 mg/dL (0.55-1.02); TOTAL PROTEIN 7.5 g/dL (6.4-8.2)
--- NOTE | 2022-02-02 20:44 | RAD ---
HISTORYNew onset ams and tremors. Pt is able to state name and but not date, day, year or location. She does not recognize daughter at bedside. Pt is on hospice due to nonstemi and EF 5%-10%STUDYCHEST, 1 VIEWCOMPARISONJuly 2021TECHNIQUEChest radiographic imaging, AP portable projection, 1 imageFINDINGSMild cardiomegaly.No focal airspace disease.No pleural effusion.No pneumothorax.No acute osseous abnormality.IMPRESSIONNo imaging findings of acute cardiopulmonary disease or significant changes.Electronically signed by: Domingo Andrew (Feb 02, 2022 20:43:16)
[2022-02-02] MEDS ORDERED: NORCO 5/325 MG TAB PO PRN (21:17)
[2022-02-02] MEDS ORDERED: NS 1,000 ML IV 1,000 ML IV ONE (21:17)
[2022-02-02] MEDS ORDERED: ROCEPHIN VIAL 1 GRAM 1 G in NS 100 ML IV 100 ML IV SCH (21:18)
[2022-02-03 01:52] LABS: LACTIC ACID 1.6 mmol/L (0.4-2.0)
[2022-02-03 02:03] LABS: MAGNESIUM 1.7 mg/dL (1.7-2.9); PHOSPHORUS 5.4 mg/dL (2.6-4.7)
[2022-02-03] MEDS ORDERED: DOPAMINE IV PREMIX 400 MG/250 ML 400 MG/250 ML BAG IV ONE (03:05)
[2022-02-03] MEDS ORDERED: [UNRECOGNIZED DRUG - OTHER] IV PRN (03:08)
[2022-02-03] MEDS ORDERED: DOBUTAMINE 1000 MG/250 ML IV PRN (03:08)
[2022-02-03] MEDS: DOPAMINE IV PREMIX 400 MG/250 ML 400 MG/250 ML BAG IV PRN ×2 (03:15→22:13)
[2022-02-03] MEDS ORDERED: MAGNESIUM SULFATE 1 GRAM/100 mL PREMIX 1 G/100 ML BAG IV PRN (04:03)
--- NOTE | 2022-02-03 05:25 | RAD ---
PROCEDURE: Chest X-ray 1 View .HISTORY: Cardiomyopathy and sepsis.TECHNIQUE: AP portable done at 4:57 a.m..COMPARISON: 02/02/2022.TECHNICAL QUALITY: Satisfactory .FINDINGS:Unchanged cardiomegaly.Mild increased central vascularity compared to previous study.No pulmonary consolidation. Small bilateral pleural effusions.IMPRESSION:Unchanged cardiomegaly with interval central vascular congestion and small effusions.Electronically signed by: Joe Mendez (Feb 03, 2022 05:24:09)
[2022-02-03 05:50] LABS: BILIRUBIN,URINE NEGATIVE (NEGATIVE); BLOOD/HEMOGLOBIN,URINE 5+ (NEGATIVE); GLUCOSE, URINE NEGATIVE (NEGATIVE); KETONES,URINE NEGATIVE (NEGATIVE); LEUKOCYTE ESTERASE ,URINE 2+ (NEGATIVE); NITRITES,URINE NEGATIVE (NEGATIVE); PROTEIN,URINE 2+ (NEGATIVE); UROBILINOGEN,URINE NORMAL (NORMAL)
[2022-02-03 05:54] LABS: APPEARANCE,URINE CLEAR (CLEAR); COLOR,URINE AMBER (YELLOW)
[2022-02-03 05:55] LABS: BACTERIA,URINE NEGATIVE /HPF (NEGATIVE); SQUAMOUS EPITHELIAL CELL,UR RARE /HPF (NEGATIVE)
[2022-02-03 08:00] LABS: BASOPHILS # (AUTO) 0.1 X10^3/uL (0.0-0.1); BASOPHILS % (AUTO) 0.6 % (0.2-1.0); HEMATOCRIT 38.9 % (36.0-47.0); HEMOGLOBIN 13.2 g/dL (12.0-16.0); LYMPHOCYTES # (AUTO) 1.5 X10^3/uL (1.3-2.9); LYMPHOCYTES % (AUTO) 15.3 % (21.0-51.0); MEAN CORPUSCULAR HEMOGLOBIN 30.5 pg (27.0-34.0); MEAN CORPUSCULAR HGB CONC 34.1 g/dL (33.0-35.0); MEAN CORPUSCULAR VOLUME 89.6 fL (80.0-100.0); MEAN PLATELET VOLUME 8.6 fL (7.4-11.0); MONOCYTES # (AUTO) 1.1 x10^3/uL (0.3-0.8); MONOCYTES % (AUTO) 11.3 % (0.0-13.0); NEUTROPHILS # (AUTO) 7.2 x10^3/uL (2.2-4.8); NEUTROPHILS % (AUTO) 72.8 % (42.0-75.0); RED BLOOD COUNT 4.34 X10^6/uL (3.5-5.4); RED CELL DISTRIBUTION WIDTH 15.4 % (11.6-16.5); WHITE BLOOD COUNT 9.9 X10^3/uL (3.6-10.0)
[2022-02-03 08:25] LABS: ALBUMIN 3.1 g/dL (3.4-5.0); CALCIUM 8.5 mg/dL (8.5-10.1); CARBON DIOXIDE 28.2 mmol/L (21-32); COR CA(FOR HYPOALB) 9.2 mg/dL (8.5-10.1); CREATININE 2.36 mg/dL (0.55-1.02); TOTAL PROTEIN 8.2 g/dL (6.4-8.2)
[2022-02-03] MEDS: LOVENOX INJ 40 MG SYR SC SCH (10:15)
[2022-02-03] MEDS: NovoLIN R (or HumuLIN R) SUBCUT PRN ×2 (12:25→16:40)
[2022-02-03 14:11] LABS: LACTIC ACID 1.4 mmol/L (0.4-2.0)
[2022-02-03] MEDS: NEURONTIN CAP 300 MG PO SCH ×2 (14:20→21:30)
--- NOTE | 2022-02-03 17:56 | DR.H&P ---
H&P - History & Physical for Day of: H&P Date: 02/02/22 - Chief Complaint Chief Complaint: AMS - History of Present Illness History of Present Illness: 61 y/o female brought in for evaluation. Has recently been treated for RLE cellulitis. Has recently had a nonSTEMI with subsequent cardiomyopathy. Pt had vomiting and diarrhea earlier today, was given zofran by Hospice nurse. Pt now with altered mental status this afternoon. Pt is confused, could not recognize her daughter initially. Unable to offer reliable complaints. Pt trying to follow instructions. Chief Complaint:: EMS states pt has new onset altered mental status and tremors. Pt is able to state name and but not date, day, year or location. She does not recognize daughter at bedside. Pt is on hospice due to nonstemi and EF 5%-10%. - Past Medical History Past Medical History: Arthritis, CHF, COPD, Diabetes, Hypertension, Renal Disease - Past Surgical History Surgical History: No History - Family History Family Medical History: Diabetes Mellitus, Coronary Artery Disease - Social History Does patient currently use any type of tobacco product: No Have you used tobacco products in the last 12 months: No Type of Tobacco Use: None Does any household member use tobacco: No Alcohol Use: None Drug Use: None - Medications Home Medications: No Known Drug Allergies Allergy (Verified 01/31/20 15:35) CONTINUE taking the following medications acetaminophen 650 mg rectal suppository 1 supp SC Q4H PRN 02/02/22 [History] bisacodyl 10 mg rectal suppository 1 supp SC 1-2XD 02/02/22 [History] hydrocodone 5 mg-acetaminophen 325 mg tablet 1 tab PO Q6H PRN pain 02/02/22 [History] hyoscyamine sulfate 0.125 mg sublingual tablet 1 - 2 tab PO Q4H PRN 02/02/22 [History] lorazepam 0.5 mg tablet 1 - 4 tab PO Q2H PRN anxiety 02/02/22 [History] morphine concentrate 100 mg/5 mL (20 mg/mL) oral solution 0.5 - 2 ml PO Q2H PRN dyspnea 02/02/22 [History] ondansetron HCl 4 mg tablet 4 mg PO Q6H PRN 02/02/22 [History] prochlorperazine 25 mg rectal suppository (Compro) 1 supp SC Q12H PRN nausea/vomiting 02/02/22 [History] sacubitril 24 mg-valsartan 26 mg tablet (Entresto) 1 tab PO BID 02/02/22 [History] vancomycin 125 mg capsule 1 cap PO QID 02/02/22 [History] - Review of Systems Constitutional: Weakness, Malaise Eyes: No Symptoms Reported ENT: No Symptoms Reported Respiratory: Shortness of Breath Cardiovascular: Palpitations, Light Headedness Gastrointestinal: No Symptoms Reported Genitourinary: No Symptoms Reported Musculoskeletal: Leg Pain Skin: Bruising Neurological: Weakness - Physical Exam Vital Signs: Temperature 99.2 F Pulse Rate [Left] 85 Pulse Rate 83 Respiratory Rate 29 Blood Pressure [Right Arm] 60/29 Blood Pressure [Left Arm] 72/42 Blood Pressure 115/81 O2 Sat by Pulse Oximetry 91 Oriented: Person Eyes: Normal Ear: Normal Nose: Normal Throat: Normal Respiratory: Diminished Throughout Cardiovascular: Normal : Normal Auscultation: Bowel Sounds: Normal Palpation: Other (MILD DIFFUSE ABDOMINAL DISTENTION) Tenderness: Normal Skin: Decreased Turgur Musculoskeletal: Back:Lumbar Psychiatric: Anxiety Affect: Anxious Speech Pattern: Clear, Appropriate - Assessment/Plan (1) AMS (altered mental status) Status: Acute Plan: ADMIT, ICU. CONTINUOUS CARDIAC MONITORING. CT HEAD ON ADMISSION WO ACUTE FINDINGS. SUPPLEMENTAL O2, RESP THERAPY, PASTOR CATH WITH STRICT I &OS. VERIFY HOME MEDICATION, CXR ON ADMISSION AND REPEAT AM. IV ATBX THERAPY FOR UTI, BS MONITORING (2) CHF (congestive heart failure) Status: Acute (3) UTI (urinary tract infection) Status: Acute (4) Acute renal failure (ARF) Status: Acute (5) Diabetes mellitus type 2, uncontrolled Status: Chronic (6) Essential hypertension Status: Chronic - Allergies Allergies/Adverse Reactions: Allergies Allergy/AdvReac Type Severity Reaction Status Date / Time No Known Drug Allergies Allergy Verified 01/31/20 15:35
[2022-02-03] MEDS ORDERED: ROCEPHIN VIAL 1 GRAM ONE (19:40)
[2022-02-03] MEDS ORDERED: NS 100 ML IV 100 ML ONE (19:42)
[2022-02-03] MEDS ORDERED: ENTRESTO 24/26 MG TAB PO SCH (21:00)
[2022-02-03] MEDS: SNACK - Diabetic Appropriate PO SCH (21:13)
[2022-02-03] MEDS: ROCEPHIN VIAL 1 GRAM 1 G in NS 100 ML IV 100 ML IV SCH (21:30)
[2022-02-04] MEDS: ZOFRAN INJ 4 MG VIAL IVP PRN (00:28)
[2022-02-04 05:04] LABS: BASOPHILS % (AUTO) 0.3 % (0.2-1.0); HEMATOCRIT 36.3 % (36.0-47.0); HEMOGLOBIN 12.3 g/dL (12.0-16.0); LYMPHOCYTES # (AUTO) 1.8 X10^3/uL (1.3-2.9); MEAN CORPUSCULAR HEMOGLOBIN 30.1 pg (27.0-34.0); MEAN CORPUSCULAR HGB CONC 33.7 g/dL (33.0-35.0); MEAN CORPUSCULAR VOLUME 89.3 fL (80.0-100.0); MEAN PLATELET VOLUME 9.4 fL (7.4-11.0); MONOCYTES # (AUTO) 1.3 x10^3/uL (0.3-0.8); MONOCYTES % (AUTO) 13.4 % (0.0-13.0); NEUTROPHILS # (AUTO) 6.5 x10^3/uL (2.2-4.8); NEUTROPHILS % (AUTO) 67.3 % (42.0-75.0); RED BLOOD COUNT 4.07 X10^6/uL (3.5-5.4); WHITE BLOOD COUNT 9.7 X10^3/uL (3.6-10.0)
[2022-02-04 05:31] LABS: ALBUMIN 2.9 g/dL (3.4-5.0); CALCIUM 8.7 mg/dL (8.5-10.1); CARBON DIOXIDE 24.4 mmol/L (21-32); COR CA(FOR HYPOALB) 9.6 mg/dL (8.5-10.1); CREATININE 2.25 mg/dL (0.55-1.02); MAGNESIUM 2.2 mg/dL (1.7-2.9)
[2022-02-04] MEDS: NEURONTIN CAP 300 MG PO SCH (05:55)
[2022-02-04] MEDS: NORCO 5/325 MG TAB PO PRN ×2 (08:22→17:35)
[2022-02-04] MEDS: LASIX IVP SCH (08:22)
[2022-02-04] MEDS: LOVENOX INJ 40 MG SYR SC SCH (08:23)
--- NOTE | 2022-02-04 10:24 | RAD ---
HISTORYCongestive heart failure, COPDSTUDYChest AP [id number]/03/2022FINDINGSThe heart is enlarged. No congestive heart failure is noted. No acute alveolar infiltrates or pleural effusions are identified. Bony thorax is unremarkable.IMPRESSIONCardiomegaly without congestive heart failureNo definite infiltratesElectronically signed by: KUMAR BHANDARI (Feb 04, 2022 10:23:04)
[2022-02-04] MEDS: NovoLIN R (or HumuLIN R) SUBCUT PRN ×3 (12:13→20:20)
[2022-02-04] MEDS: DOPAMINE IV PREMIX 400 MG/250 ML 400 MG/250 ML BAG IV PRN (18:27)
[2022-02-04] MEDS: SNACK - Diabetic Appropriate PO SCH (20:20)
[2022-02-04] MEDS: ROCEPHIN VIAL 1 GRAM 1 G in NS 100 ML IV 100 ML IV SCH (21:10)
[2022-02-05 05:34] LABS: BASOPHILS # (AUTO) 0.1 X10^3/uL (0.0-0.1); HEMATOCRIT 35.9 % (36.0-47.0); HEMOGLOBIN 12.2 g/dL (12.0-16.0); LYMPHOCYTES # (AUTO) 1.3 X10^3/uL (1.3-2.9); LYMPHOCYTES % (AUTO) 19.9 % (21.0-51.0); MEAN CORPUSCULAR HEMOGLOBIN 30.1 pg (27.0-34.0); MEAN CORPUSCULAR HGB CONC 34.1 g/dL (33.0-35.0); MEAN CORPUSCULAR VOLUME 88.4 fL (80.0-100.0); MONOCYTES # (AUTO) 0.9 x10^3/uL (0.3-0.8); MONOCYTES % (AUTO) 13.3 % (0.0-13.0); NEUTROPHILS # (AUTO) 4.4 x10^3/uL (2.2-4.8); NEUTROPHILS % (AUTO) 65.8 % (42.0-75.0); RED BLOOD COUNT 4.07 X10^6/uL (3.5-5.4); RED CELL DISTRIBUTION WIDTH 15.5 % (11.6-16.5); WHITE BLOOD COUNT 6.7 X10^3/uL (3.6-10.0)
[2022-02-05 05:42] LABS: ALBUMIN 2.6 g/dL (3.4-5.0); CALCIUM 9.1 mg/dL (8.5-10.1); CARBON DIOXIDE 25.7 mmol/L (21-32); COR CA(FOR HYPOALB) 10.2 mg/dL (8.5-10.1); CREATININE 1.33 mg/dL (0.55-1.02); TOTAL PROTEIN 7.5 g/dL (6.4-8.2)
[2022-02-05] MEDS: NovoLIN R (or HumuLIN R) SUBCUT PRN ×3 (06:04→17:47)
[2022-02-05] MEDS: ZOFRAN INJ 4 MG VIAL IVP PRN (06:35)
[2022-02-05] MEDS: LOVENOX INJ 40 MG SYR SC SCH (09:44)
[2022-02-05] MEDS: LASIX IVP SCH (09:44)
[2022-02-05] MEDS: DOPAMINE IV PREMIX 400 MG/250 ML 400 MG/250 ML BAG IV PRN (10:02)
[2022-02-05] MEDS: COLACE CAP 100 MG PO SCH (14:13)
[2022-02-05] MEDS: NORCO 5/325 MG TAB PO PRN ×2 (18:40→23:50)
[2022-02-05] MEDS: ROCEPHIN VIAL 1 GRAM 1 G in NS 100 ML IV 100 ML IV SCH (20:13)
[2022-02-05] MEDS: SNACK - Diabetic Appropriate PO SCH (20:13)
[2022-02-06 05:10] LABS: BASOPHILS # (AUTO) 0.1 X10^3/uL (0.0-0.1); HEMATOCRIT 33.6 % (36.0-47.0); HEMOGLOBIN 11.6 g/dL (12.0-16.0); LYMPHOCYTES # (AUTO) 1.6 X10^3/uL (1.3-2.9); MEAN CORPUSCULAR HEMOGLOBIN 30.4 pg (27.0-34.0); MEAN CORPUSCULAR HGB CONC 34.7 g/dL (33.0-35.0); MEAN CORPUSCULAR VOLUME 87.8 fL (80.0-100.0); MONOCYTES # (AUTO) 0.6 x10^3/uL (0.3-0.8); MONOCYTES % (AUTO) 11.3 % (0.0-13.0); NEUTROPHILS # (AUTO) 3.1 x10^3/uL (2.2-4.8); NEUTROPHILS % (AUTO) 58.7 % (42.0-75.0); RED BLOOD COUNT 3.82 X10^6/uL (3.5-5.4); RED CELL DISTRIBUTION WIDTH 15.2 % (11.6-16.5); WHITE BLOOD COUNT 5.4 X10^3/uL (3.6-10.0)
[2022-02-06 05:25] LABS: ALANINE AMINOTRANSFERASE 87 Units/L (12-78); ALBUMIN 2.4 g/dL (3.4-5.0); ALKALINE PHOSPHATASE 101 Units/L (46-116); ASPARTATE AMINO TRANSFERASE 77 Units/L (15-37); BLOOD UREA NITROGEN 27 mg/dL (7-18); CARBON DIOXIDE 27.6 mmol/L (21-32); CHLORIDE 100 mmol/L (98-107); COR CA(FOR HYPOALB) 10.3 mg/dL (8.5-10.1); COR NA(FOR HYPERGLY) 134 mmol/L (136-145); CREATININE 1.02 mg/dL (0.55-1.02); SODIUM 134 mmol/L (136-145); TOTAL PROTEIN 6.8 g/dL (6.4-8.2); eGFR NON BLACK RACES 59 (>60)
[2022-02-06] MEDS: NORCO 5/325 MG TAB PO PRN ×3 (05:38→20:15)
--- NOTE | 2022-02-06 08:23 | RAD ---
HISTORYCHFSTUDYCHEST, 1 [id number]/04/2022.FINDINGSThe trachea is midline. The cardiac silhouette is enlarged similar to the comparison study. The lungs are clear without focal consolidation or pleural effusion evident. There is no pneumothorax. The bony thorax is grossly unremarkable.IMPRESSIONUnchanged cardiomegaly.Lungs are clear.Electronically signed by: EDUARD LIM (Feb 06, 2022 08:21:38)
[2022-02-06] MEDS: LASIX IVP SCH (08:29)
[2022-02-06] MEDS: COLACE CAP 100 MG PO SCH ×2 (08:29→08:38)
[2022-02-06] MEDS: LOVENOX INJ 40 MG SYR SC SCH (08:29)
--- NOTE | 2022-02-06 10:09 | PCM.PROG ---
Progress Note Progress Note for Day of Date of Exam: 02/06/22 Subjective Subjective: The patient is a 61-year-old white female who was admitted with altered mental status, urinary tract infection, and congestive heart failure. The patient has an unknown history of heart failure but was previously under Hospice for management of heart failure disease. She has been on a Dopamine drip which is titrated per the nursing staff to keep her systolic blood pressure greater 100. This morning she reports feeling a little better and her symptoms have improved. Her blood pressure appears to have stabilized and she is currently only requiring Dopamine at 1mcg/kg/min, will discontinue this afternoon and monitor blood pressure. She is also only requiring room air with good oxygen saturations. Labs/imaging: Wbc 5.4, Hgb 11.6, Plt 160, Na 134, K 4.7, Creatinine 1.02, Glucose 115, CXR was obtained this morning that revealed: Unchanged cardiomegaly. Lungs are clear. The patients Entresto had not been resumed due to her hypotension and renal abnormalities. Pt is receiving IV lasix 20mg daily. The patient was complaining of lower extremity pain. She has known PAD as well. We reviewed her diagnostic tests and labs with the patients family as well as patient. She is on Rocephin right now for her urinary tract infection. Her urine culture was obtained via catheterization showing no significant growth at this time. We discussed trying to stabilize her hypotension and at this time the family will decide to resume Hospice upon discharge. Will restart home pain medication for neuropathy. The patient has been afebrile for over 24 hours. Will continue to closely monitor and follow up labs/imaging. Time spent on clinical assessment, reviewing labs and imaging, decision making, and documentation greater than 45 minutes. Past Medical Family Social History Allergies: Allergies No Known Drug Allergies Allergy (Verified 01/31/20 15:35) Vital Signs and I&O's Vital Signs: Temperature 97.7 F Pulse Rate [Left] 85 Pulse Rate 69 Respiratory Rate 18 Blood Pressure [Right Arm] 60/29 Blood Pressure [Left Arm] 72/42 Blood Pressure 113/66 O2 Sat by Pulse Oximetry 97 Intake and Output: Intake & Output 02/03/22 02/04/22 02/05/22 02/06/22 23:59 23:59 23:59 23:59 Intake Total 2963 / 2963 1701 / 1701 803 / 803 269 / 269 Output Total 1000 / 1000 3200 / 3200 2600 / 2600 900 / 900 Balance 1963 / 1963 -1499 / -1499 -1797 / -1797 -631 / -631 Physical Exam Oriented: Person Eyes: Normal Ear: Normal Nose: Normal Throat: Normal Respiratory: Normal Cardiovascular: Normal : Normal Auscultation: Bowel Sounds: Normal Tenderness: Normal Skin: Decreased Turgur Musculoskeletal: Back:Lumbar Psychiatric: Anxiety Affect: Anxious Speech Pattern: Clear and Appropriate Laboratory and Diagnostics Result Diagrams: 02/06/22 04:19 02/06/22 04:19 Labs: 02/02/22 19:10 Blood Blood Culture - Preliminary 02/02/22 18:55 Blood Blood Culture - Preliminary 02/02/22 18:21 Urine,Catheterized Urine Culture - Final Laboratory WBC 5.4 X10^3/uL (3.6-10.0) 02/06/22 04:19 RBC 3.82 X10^6/uL (3.5-5.4) 02/06/22 04:19 Hgb 11.6 g/dL (12.0-16.0) L 02/06/22 04:19 Hct 33.6 % (36.0-47.0) L 02/06/22 04:19 MCV 87.8 fL (80.0-100.0) 02/06/22 04:19 MCH 30.4 pg (27.0-34.0) 02/06/22 04:19 MCHC 34.7 g/dL (33.0-35.0) 02/06/22 04:19 RDW 15.2 % (11.6-16.5) 02/06/22 04:19 Plt Count 160 X10^3/uL (150.0-450.0) 02/06/22 04:19 MPV 9.0 fL (7.4-11.0) 02/06/22 04:19 Neut % (Auto) 58.7 % (42.0-75.0) 02/06/22 04:19 Lymph % (Auto) 29.0 % (21.0-51.0) 02/06/22 04:19 [place] % (Auto) 11.3 % (0.0-13.0) 02/06/22 04:19 Eos % (Auto) 0.0 % (0.9-2.9) L 02/06/22 04:19 Baso % (Auto) 1.0 % (0.2-1.0) 02/06/22 04:19 Neut # (Auto) 3.1 x10^3/uL (2.2-4.8) 02/06/22 04:19 Lymph # (Auto) 1.6 X10^3/uL (1.3-2.9) 02/06/22 04:19 [place] # (Auto) 0.6 x10^3/uL (0.3-0.8) 02/06/22 04:19 Eos # (Auto) 0.0 x10^3/uL (0.0-0.2) 02/06/22 04:19 Baso # (Auto) 0.1 X10^3/uL (0.0-0.1) 02/06/22 04:19 Absolute Nucleated RBC 0.2 /100WBC 02/06/22 04:19 PT 15.9 SECONDS (11.8-14.3) 02/03/22 01:26 INR Target Range - 02/03/22 01:26 INR 1.31 (0.8-1.3) H 02/03/22 01:26 APTT 27.8 SECONDS (22.9-36.5) 02/03/22 01:26 PTT Comment - 02/03/22 01:26 Sodium 134 mmol/L (136-145) L 02/06/22 04:19 Corrected Sodium 134 mmol/L (136-145) L 02/06/22 04:19 Potassium 4.7 mmol/L (3.5-5.1) 02/06/22 04:19 Chloride 100 mmol/L (98-107) 02/06/22 04:19 Carbon Dioxide 27.6 mmol/L (21-32) 02/06/22 04:19 BUN 27 mg/dL (7-18) H 02/06/22 04:19 Creatinine 1.02 mg/dL (0.55-1.02) 02/06/22 04:19 Est GFR (MDRD) Af Amer > 60 (>60) 02/06/22 04:19 Est GFR (MDRD) Non-Af 59 (>60) 02/06/22 04:19 Glucose 115 mg/dL (65-99) H 02/06/22 04:19 POC Glucose (mg/dL) 108 mg/dL (65-99) H 02/06/22 05:17 Lactic Acid 1.2 mmol/L (0.4-2.0) 02/03/22 19:00 Calcium 9.0 mg/dL (8.5-10.1) 02/06/22 04:19 Corrected Calcium 10.3 mg/dL (8.5-10.1) H 02/06/22 04:19 Phosphorus 5.4 mg/dL (2.6-4.7) H 02/03/22 01:26 Magnesium 2.2 mg/dL (1.7-2.9) 02/04/22 04:35 Total Bilirubin 0.30 mg/dL (0.2-1.0) 02/06/22 04:19 AST 77 Units/L (15-37) H 02/06/22 04:19 ALT 87 Units/L (12-78) H 02/06/22 04:19 Alkaline Phosphatase 101 Units/L (46-116) 02/06/22 04:19 Creatine Kinase 102 Units/L (26-192) 02/05/22 04:47 Troponin I High Sens 5903.8 ng/L (4.0-60.0) H* 02/05/22 04:47 Total Protein 6.8 g/dL (6.4-8.2) 02/06/22 04:19 Albumin 2.4 g/dL (3.4-5.0) L 02/06/22 04:19 Globulin 4.4 g/dL (2.5-4.5) 02/06/22 04:19 Albumin/Globulin Ratio 0.5 Ratio (1.1-2.1) L 02/06/22 04:19 Amylase 32 Units/L (25-115) 02/03/22 01:26 Lipase 106 Units/L (73-393) 02/03/22 01:26 Cortisol 13.5 ug/dL 02/03/22 07:34 Specimen Type Catherized urine 02/03/22 05:20 Urine Color Ailin (YELLOW) 02/03/22 05:20 Urine Appearance Clear (CLEAR) 02/03/22 05:20 Urine pH 5.0 (5.0 - 8.0) 02/03/22 05:20 Ur Specific [place] 1.015 (1.000-1.030) 02/03/22 05:20 Urine Protein 2+ (NEGATIVE) 02/03/22 05:20 Urine Glucose (UA) Negative (NEGATIVE) 02/03/22 05:20 Urine Ketones Negative (NEGATIVE) 02/03/22 05:20 Urine Blood 5+ (NEGATIVE) 02/03/22 05:20 Urine Nitrite Negative (NEGATIVE) 02/03/22 05:20 Urine Bilirubin Negative (NEGATIVE) 02/03/22 05:20 Urine Urobilinogen Normal (NORMAL) 02/03/22 05:20 Ur Leukocyte Esterase 2+ (NEGATIVE) 02/03/22 05:20 Urine RBC 3-5 /HPF (0-3) A 02/03/22 05:20 Urine WBC 3-5 /HPF (0-5) 02/03/22 05:20 Ur Squamous Epith Cells Rare /HPF (NEGATIVE) 02/03/22 05:20 Amorphous Sediment Trace /HPF (NEGATIVE) 02/03/22 05:20 Urine Bacteria Negative /HPF (NEGATIVE) 02/03/22 05:20 Urine Mucus Rare /HPF (NEGATIVE) 02/03/22 05:20 Ur Culture Indicated? No/not indicated 02/03/22 05:20 Urine Opiates Screen Positive (NEG=<300) A 02/02/22 18:21 Urine Methadone Screen Negative (NEG=<300) 02/02/22 18:21 Ur Barbiturates Screen Negative (NEG=<200) 02/02/22 18:21 Ur Phencyclidine Scrn Negative (NEG=<25) 02/02/22 18:21 Ur Amphetamines Screen Negative (NEG=<1000) 02/02/22 18:21 U Benzodiazepines Scrn Negative (NEG=<200) 02/02/22 18:21 Urine Cocaine Screen Negative (NEG=<300) 02/02/22 18:21 U Marijuana (THC) Screen Negative (NEG=<50) 02/02/22 18:21 SARS-CoV-2 (PCR) Negative (NEGATIVE) 02/02/22 18:00 Influenza Type A (PCR) Negative (NEGATIVE) 02/02/22 18:00 Influenza Type B (PCR) Negative (NEGATIVE) 02/02/22 18:00 RSV (PCR) Negative (NEGATIVE) 02/02/22 18:00 Plan (1) AMS (altered mental status): Status: Acute Plan: ADMIT, ICU CONTINUOUS CARDIAC MONITORING CT HEAD ON ADMISSION WO ACUTE FINDINGS SUPPLEMENTAL O2, RESP THERAPY, PASTOR CATH WITH STRICT I &OS VERIFY HOME MEDICATION, CXR ON ADMISSION AND REPEAT AM IV ATBX THERAPY FOR UTI, BS MONITORING (2) CHF (congestive heart failure): Status: Acute (3) UTI (urinary tract infection): Status: Acute (4) Acute renal failure (ARF): Status: Acute (5) Diabetes mellitus type 2, uncontrolled: Status: Chronic (6) Essential hypertension: Status: Chronic
[2022-02-06] MEDS ORDERED: NORCO 5/325 MG TAB PO PRN (11:35)
[2022-02-06] MEDS ORDERED: NEURONTIN CAP 100 MG ONE (13:23)
[2022-02-06] MEDS: NEURONTIN CAP 100 MG PO SCH ×2 (13:38→18:05)
[2022-02-06] MEDS ORDERED: MELATONIN ONE (18:52)
[2022-02-06] MEDS: SNACK - Diabetic Appropriate PO SCH (20:14)
[2022-02-06] MEDS: ROCEPHIN VIAL 1 GRAM 1 G in NS 100 ML IV 100 ML IV SCH (20:14)
[2022-02-06] MEDS: MELATONIN PO SCH (20:14)
[2022-02-07] MEDS: NORCO 5/325 MG TAB PO PRN ×4 (02:45→20:23)
[2022-02-07 05:17] LABS: BASOPHILS # (AUTO) 0.2 X10^3/uL (0.0-0.1); BASOPHILS % (AUTO) 4.9 % (0.2-1.0); EOSINOPHILS # (AUTO) 0.1 x10^3/uL (0.0-0.2); EOSINOPHILS % (AUTO) 1.9 % (0.9-2.9); HEMATOCRIT 37.1 % (36.0-47.0); HEMOGLOBIN 12.7 g/dL (12.0-16.0); LYMPHOCYTES # (AUTO) 1.2 X10^3/uL (1.3-2.9); LYMPHOCYTES % (AUTO) 26.8 % (21.0-51.0); MEAN CORPUSCULAR HEMOGLOBIN 30.4 pg (27.0-34.0); MEAN CORPUSCULAR HGB CONC 34.2 g/dL (33.0-35.0); MEAN CORPUSCULAR VOLUME 88.8 fL (80.0-100.0); MONOCYTES # (AUTO) 0.5 x10^3/uL (0.3-0.8); MONOCYTES % (AUTO) 10.6 % (0.0-13.0); NEUTROPHILS # (AUTO) 2.6 x10^3/uL (2.2-4.8); NEUTROPHILS % (AUTO) 55.8 % (42.0-75.0); RED BLOOD COUNT 4.17 X10^6/uL (3.5-5.4); RED CELL DISTRIBUTION WIDTH 15.5 % (11.6-16.5); WHITE BLOOD COUNT 4.6 X10^3/uL (3.6-10.0)
[2022-02-07 05:42] LABS: ALANINE AMINOTRANSFERASE 87 Units/L (12-78); ALBUMIN 2.8 g/dL (3.4-5.0); ALKALINE PHOSPHATASE 105 Units/L (46-116); ASPARTATE AMINO TRANSFERASE 62 Units/L (15-37); BLOOD UREA NITROGEN 22 mg/dL (7-18); CALCIUM 9.4 mg/dL (8.5-10.1); CHLORIDE 99 mmol/L (98-107); COR CA(FOR HYPOALB) 10.4 mg/dL (8.5-10.1); COR NA(FOR HYPERGLY) 136 mmol/L (136-145); CREATININE 1.15 mg/dL (0.55-1.02); SODIUM 136 mmol/L (136-145); TOTAL PROTEIN 7.6 g/dL (6.4-8.2); eGFR NON BLACK RACES 51 (>60)
[2022-02-07] MEDS: COLACE CAP 100 MG PO SCH (09:26)
[2022-02-07] MEDS: LASIX IVP SCH (09:26)
[2022-02-07] MEDS: LOVENOX INJ 40 MG SYR SC SCH (09:28)
--- NOTE | 2022-02-07 11:21 | PCM.PROG ---
Progress Note Progress Note for Day of Date of Exam: 02/07/22 Subjective Subjective: The patient is a 61-year-old white female who was admitted with altered mental status, urinary tract infection, and congestive heart failure. The patient has a history of heart failure but was previously under Hospice for management of heart failure disease. This morning she reports feeling a little better. No acute events overnight. She did report still having some difficulty sleeping at night and allergies. Her blood pressure appears to have stabilized and Dopamine gtt has been discontinued. She currently does not require supplemental oxygen and is on room air with good oxygen saturations. Labs/imaging: Wbc 4.6, Hgb 12.7, Plt 185, Na 136, K 4.7, Creatinine 1.15, Glucose 116, CXR was obtained this morning that revealed: Unchanged cardiomegaly. Lungs are clear. The patients Entresto had not been resumed due to her hypotension and renal abnormalities. Pt is receiving IV lasix 20mg daily. The patient was complaining of lower extremity pain. She has known PAD as well. We reviewed her diagnostic tests and labs with the patients family as well as patient. She is on Rocephin right now for her urinary tract infection. Her urine culture was obtained via catheterization showing no significant growth at this time. Her family will decide to resume Hospice upon discharge. Will increase gabapentin to 300mg at night and add zyrtec 10mg at night to help with sleep and allergies. Continue to closely monitor and follow up labs/imaging. Time spent on clinical assessment, reviewing labs and imaging, decision making, and documentation greater than 45 minutes. Past Medical Family Social History Allergies: Allergies No Known Drug Allergies Allergy (Verified 01/31/20 15:35) Vital Signs and I&O's Vital Signs: Temperature 97.7 F Pulse Rate [Left] 85 Pulse Rate 73 Respiratory Rate 25 Blood Pressure [Right Arm] 60/29 Blood Pressure [Left Arm] 72/42 Blood Pressure 144/76 O2 Sat by Pulse Oximetry 100 Intake and Output: Intake & Output 02/04/22 02/05/22 02/06/22 02/07/22 23:59 23:59 23:59 23:59 Intake Total 1701 / 1701 803 / 803 1543 / 1543 140 / 140 Output Total 3200 / 3200 2600 / 2600 3150 / 3150 450 / 450 Balance -1499 / -1499 -1797 / -1797 -1607 / -1607 -310 / -310 Physical Exam Oriented: Person Eyes: Normal Ear: Normal Nose: Normal Throat: Normal Respiratory: Normal Cardiovascular: Normal : Normal Auscultation: Bowel Sounds: Normal Tenderness: Normal Skin: Decreased Turgur Musculoskeletal: Back:Lumbar Psychiatric: Anxiety Affect: Anxious Speech Pattern: Clear and Appropriate Laboratory and Diagnostics Result Diagrams: 02/07/22 04:30 02/07/22 04:30 Labs: 02/02/22 19:10 Blood Blood Culture - Final 02/02/22 18:55 Blood Blood Culture - Preliminary 02/02/22 18:21 Urine,Catheterized Urine Culture - Final Laboratory WBC 4.6 X10^3/uL (3.6-10.0) 02/07/22 04:30 RBC 4.17 X10^6/uL (3.5-5.4) 02/07/22 04:30 Hgb 12.7 g/dL (12.0-16.0) 02/07/22 04:30 Hct 37.1 % (36.0-47.0) 02/07/22 04:30 MCV 88.8 fL (80.0-100.0) 02/07/22 04:30 MCH 30.4 pg (27.0-34.0) 02/07/22 04:30 MCHC 34.2 g/dL (33.0-35.0) 02/07/22 04:30 RDW 15.5 % (11.6-16.5) 02/07/22 04:30 Plt Count 185 X10^3/uL (150.0-450.0) 02/07/22 04:30 MPV 9.0 fL (7.4-11.0) 02/07/22 04:30 Neut % (Auto) 55.8 % (42.0-75.0) 02/07/22 04:30 Lymph % (Auto) 26.8 % (21.0-51.0) 02/07/22 04:30 [place] % (Auto) 10.6 % (0.0-13.0) 02/07/22 04:30 Eos % (Auto) 1.9 % (0.9-2.9) 02/07/22 04:30 Baso % (Auto) 4.9 % (0.2-1.0) H 02/07/22 04:30 Neut # (Auto) 2.6 x10^3/uL (2.2-4.8) 02/07/22 04:30 Lymph # (Auto) 1.2 X10^3/uL (1.3-2.9) L 02/07/22 04:30 [place] # (Auto) 0.5 x10^3/uL (0.3-0.8) 02/07/22 04:30 Eos # (Auto) 0.1 x10^3/uL (0.0-0.2) 02/07/22 04:30 Baso # (Auto) 0.2 X10^3/uL (0.0-0.1) H 02/07/22 04:30 Absolute Nucleated RBC 0.2 /100WBC 02/07/22 04:30 PT 15.9 SECONDS (11.8-14.3) 02/03/22 01:26 INR Target Range - 02/03/22 01:26 INR 1.31 (0.8-1.3) H 02/03/22 01:26 APTT 27.8 SECONDS (22.9-36.5) 02/03/22 01:26 PTT Comment - 02/03/22 01:26 Sodium 136 mmol/L (136-145) 02/07/22 04:30 Corrected Sodium 136 mmol/L (136-145) 02/07/22 04:30 Potassium 4.7 mmol/L (3.5-5.1) 02/07/22 04:30 Chloride 99 mmol/L (98-107) 02/07/22 04:30 Carbon Dioxide 30.0 mmol/L (21-32) 02/07/22 04:30 BUN 22 mg/dL (7-18) H 02/07/22 04:30 Creatinine 1.15 mg/dL (0.55-1.02) H 02/07/22 04:30 Est GFR (MDRD) Af Amer > 60 (>60) 02/07/22 04:30 Est GFR (MDRD) Non-Af 51 (>60) L 02/07/22 04:30 Glucose 116 mg/dL (65-99) H 02/07/22 04:30 POC Glucose (mg/dL) 110 mg/dL (65-99) H 02/07/22 05:36 Lactic Acid 1.2 mmol/L (0.4-2.0) 02/03/22 19:00 Calcium 9.4 mg/dL (8.5-10.1) 02/07/22 04:30 Corrected Calcium 10.4 mg/dL (8.5-10.1) H 02/07/22 04:30 Phosphorus 5.4 mg/dL (2.6-4.7) H 02/03/22 01:26 Magnesium 2.2 mg/dL (1.7-2.9) 02/04/22 04:35 Total Bilirubin 0.30 mg/dL (0.2-1.0) 02/07/22 04:30 AST 62 Units/L (15-37) H 02/07/22 04:30 ALT 87 Units/L (12-78) H 02/07/22 04:30 Alkaline Phosphatase 105 Units/L (46-116) 02/07/22 04:30 Creatine Kinase 102 Units/L (26-192) 02/05/22 04:47 Troponin I High Sens 5903.8 ng/L (4.0-60.0) H* 02/05/22 04:47 Total Protein 7.6 g/dL (6.4-8.2) 02/07/22 04:30 Albumin 2.8 g/dL (3.4-5.0) L 02/07/22 04:30 Globulin 4.8 g/dL (2.5-4.5) H 02/07/22 04:30 Albumin/Globulin Ratio 0.6 Ratio (1.1-2.1) L 02/07/22 04:30 Amylase 32 Units/L (25-115) 02/03/22 01:26 Lipase 106 Units/L (73-393) 02/03/22 01:26 Cortisol 13.5 ug/dL 02/03/22 07:34 Specimen Type Catherized urine 02/03/22 05:20 Urine Color Ailin (YELLOW) 02/03/22 05:20 Urine Appearance Clear (CLEAR) 02/03/22 05:20 Urine pH 5.0 (5.0 - 8.0) 02/03/22 05:20 Ur Specific [place] 1.015 (1.000-1.030) 02/03/22 05:20 Urine Protein 2+ (NEGATIVE) 02/03/22 05:20 Urine Glucose (UA) Negative (NEGATIVE) 02/03/22 05:20 Urine Ketones Negative (NEGATIVE) 02/03/22 05:20 Urine Blood 5+ (NEGATIVE) 02/03/22 05:20 Urine Nitrite Negative (NEGATIVE) 02/03/22 05:20 Urine Bilirubin Negative (NEGATIVE) 02/03/22 05:20 Urine Urobilinogen Normal (NORMAL) 02/03/22 05:20 Ur Leukocyte Esterase 2+ (NEGATIVE) 02/03/22 05:20 Urine RBC 3-5 /HPF (0-3) A 02/03/22 05:20 Urine WBC 3-5 /HPF (0-5) 02/03/22 05:20 Ur Squamous Epith Cells Rare /HPF (NEGATIVE) 02/03/22 05:20 Amorphous Sediment Trace /HPF (NEGATIVE) 02/03/22 05:20 Urine Bacteria Negative /HPF (NEGATIVE) 02/03/22 05:20 Urine Mucus Rare /HPF (NEGATIVE) 02/03/22 05:20 Ur Culture Indicated? No/not indicated 02/03/22 05:20 Urine Opiates Screen Positive (NEG=<300) A 02/02/22 18:21 Urine Methadone Screen Negative (NEG=<300) 02/02/22 18:21 Ur Barbiturates Screen Negative (NEG=<200) 02/02/22 18:21 Ur Phencyclidine Scrn Negative (NEG=<25) 02/02/22 18:21 Ur Amphetamines Screen Negative (NEG=<1000) 02/02/22 18:21 U Benzodiazepines Scrn Negative (NEG=<200) 02/02/22 18:21 Urine Cocaine Screen Negative (NEG=<300) 02/02/22 18:21 U Marijuana (THC) Screen Negative (NEG=<50) 02/02/22 18:21 SARS-CoV-2 (PCR) Negative (NEGATIVE) 02/02/22 18:00 Influenza Type A (PCR) Negative (NEGATIVE) 02/02/22 18:00 Influenza Type B (PCR) Negative (NEGATIVE) 02/02/22 18:00 RSV (PCR) Negative (NEGATIVE) 02/02/22 18:00 Plan (1) AMS (altered mental status): Status: Acute Plan: ADMIT, ICU CONTINUOUS CARDIAC MONITORING CT HEAD ON ADMISSION WO ACUTE FINDINGS SUPPLEMENTAL O2, RESP THERAPY, PASTOR CATH WITH STRICT I &OS VERIFY HOME MEDICATION, CXR ON ADMISSION AND REPEAT AM IV ATBX THERAPY FOR UTI, BS MONITORING (2) CHF (congestive heart failure): Status: Acute (3) UTI (urinary tract infection): Status: Acute (4) Acute renal failure (ARF): Status: Acute (5) Diabetes mellitus type 2, uncontrolled: Status: Chronic (6) Essential hypertension: Status: Chronic
[2022-02-07] MEDS ORDERED: NEURONTIN CAP 300 MG ONE (19:01)
[2022-02-07] MEDS ORDERED: ZyrTEC TAB 10 MG ONE (19:02)
[2022-02-07] MEDS: ZyrTEC TAB 10 MG PO SCH (20:06)
[2022-02-07] MEDS: MELATONIN PO SCH (20:06)
[2022-02-07] MEDS: ROCEPHIN VIAL 1 GRAM 1 G in NS 100 ML IV 100 ML IV SCH (20:06)
[2022-02-07] MEDS: SNACK - Diabetic Appropriate PO SCH (20:07)
[2022-02-07] MEDS: NEURONTIN CAP 300 MG PO SCH (20:07)
[2022-02-08] MEDS: NORCO 5/325 MG TAB PO PRN ×4 (03:15→22:23)
[2022-02-08 05:25] LABS: HEMOGLOBIN 11.4 g/dL (12.0-16.0); LYMPHOCYTES # (AUTO) 1.3 X10^3/uL (1.3-2.9); LYMPHOCYTES % (AUTO) 35.3 % (21.0-51.0); MEAN CORPUSCULAR HEMOGLOBIN 30.7 pg (27.0-34.0); MEAN CORPUSCULAR HGB CONC 34.6 g/dL (33.0-35.0); MEAN CORPUSCULAR VOLUME 88.9 fL (80.0-100.0); MEAN PLATELET VOLUME 8.7 fL (7.4-11.0); MONOCYTES # (AUTO) 0.4 x10^3/uL (0.3-0.8); MONOCYTES % (AUTO) 10.4 % (0.0-13.0); NEUTROPHILS # (AUTO) 1.9 x10^3/uL (2.2-4.8); NEUTROPHILS % (AUTO) 53.3 % (42.0-75.0); RED BLOOD COUNT 3.71 X10^6/uL (3.5-5.4); RED CELL DISTRIBUTION WIDTH 15.4 % (11.6-16.5); WHITE BLOOD COUNT 3.6 X10^3/uL (3.6-10.0)
[2022-02-08 05:49] LABS: ALANINE AMINOTRANSFERASE 59 Units/L (12-78); ALBUMIN 2.2 g/dL (3.4-5.0); ALKALINE PHOSPHATASE 83 Units/L (46-116); ASPARTATE AMINO TRANSFERASE 46 Units/L (15-37); BLOOD UREA NITROGEN 17 mg/dL (7-18); CARBON DIOXIDE 30.7 mmol/L (21-32); CHLORIDE 102 mmol/L (98-107); COR CA(FOR HYPOALB) 10.4 mg/dL (8.5-10.1); SODIUM 137 mmol/L (136-145); TOTAL PROTEIN 6.5 g/dL (6.4-8.2); eGFR NON BLACK RACES > 60 (>60)
[2022-02-08] MEDS: COLACE CAP 100 MG PO SCH ×2 (08:53→09:00)
[2022-02-08] MEDS: LASIX IVP SCH (08:53)
[2022-02-08] MEDS: LOVENOX INJ 40 MG SYR SC SCH (08:53)
--- NOTE | 2022-02-08 13:09 | RAD ---
HISTORYCHFSTUDYAP chestCOMPARISONAugust 2021FINDINGSStable marked cardiac enlargement with clear lungs and pleural spaces. There is no evidence for vascular congestion, pulmonary edema, pneumonia or pleural effusion.IMPRESSIONCardiomegaly.Electronicall y signed by: ANTHONY JOEL (Feb 08, 2022 13:07:34)
[2022-02-08] MEDS: ENTRESTO 24/26 MG TAB PO SCH ×2 (19:03→20:44)
[2022-02-08] MEDS: ZyrTEC TAB 10 MG PO SCH (20:43)
[2022-02-08] MEDS: NEURONTIN CAP 300 MG PO SCH (20:43)
[2022-02-08] MEDS: MELATONIN PO SCH (20:43)
[2022-02-08] MEDS: ROCEPHIN VIAL 1 GRAM 1 G in NS 100 ML IV 100 ML IV SCH (21:02)
[2022-02-08] MEDS: SNACK - Diabetic Appropriate PO SCH (21:35)
[2022-02-09 05:38] LABS: EOSINOPHILS % (AUTO) 0.1 % (0.9-2.9); HEMATOCRIT 36.3 % (36.0-47.0); HEMOGLOBIN 12.5 g/dL (12.0-16.0); LYMPHOCYTES # (AUTO) 1.6 X10^3/uL (1.3-2.9); LYMPHOCYTES % (AUTO) 36.6 % (21.0-51.0); MEAN CORPUSCULAR HEMOGLOBIN 30.9 pg (27.0-34.0); MEAN CORPUSCULAR HGB CONC 34.5 g/dL (33.0-35.0); MEAN CORPUSCULAR VOLUME 89.8 fL (80.0-100.0); MEAN PLATELET VOLUME 8.8 fL (7.4-11.0); MONOCYTES # (AUTO) 0.5 x10^3/uL (0.3-0.8); MONOCYTES % (AUTO) 11.1 % (0.0-13.0); NEUTROPHILS # (AUTO) 2.3 x10^3/uL (2.2-4.8); NEUTROPHILS % (AUTO) 51.2 % (42.0-75.0); RED BLOOD COUNT 4.05 X10^6/uL (3.5-5.4); RED CELL DISTRIBUTION WIDTH 15.8 % (11.6-16.5); WHITE BLOOD COUNT 4.4 X10^3/uL (3.6-10.0)
[2022-02-09] MEDS: NovoLIN R (or HumuLIN R) SUBCUT PRN (05:49)
[2022-02-09 05:53] LABS: ALANINE AMINOTRANSFERASE 58 Units/L (12-78); ALBUMIN 2.4 g/dL (3.4-5.0); ALKALINE PHOSPHATASE 85 Units/L (46-116); ASPARTATE AMINO TRANSFERASE 48 Units/L (15-37); BLOOD UREA NITROGEN 16 mg/dL (7-18); CALCIUM 8.9 mg/dL (8.5-10.1); CARBON DIOXIDE 28.6 mmol/L (21-32); CHLORIDE 101 mmol/L (98-107); COR CA(FOR HYPOALB) 10.2 mg/dL (8.5-10.1); COR NA(FOR HYPERGLY) 139 mmol/L (136-145); CREATININE 0.91 mg/dL (0.55-1.02); SODIUM 137 mmol/L (136-145); TOTAL PROTEIN 6.6 g/dL (6.4-8.2); eGFR NON BLACK RACES > 60 (>60)
[2022-02-09] MEDS: NORCO 5/325 MG TAB PO PRN (06:03)
[2022-02-09 06:10] LABS: PLATELET MORPHOLOGY COMMENT NORMAL (NORMAL)
[2022-02-09 08:37] VITALS: BMI 37.5
[2022-02-09] MEDS: ENTRESTO 24/26 MG TAB PO SCH (08:55)
[2022-02-09] MEDS: LOVENOX INJ 40 MG SYR SC SCH (08:56)
[2022-02-09] MEDS: LASIX IVP SCH (08:56)
[2022-02-09] MEDS: COLACE CAP 100 MG PO SCH (09:07)
[2022-02-09 09:11] VITALS: BP 145/75
== END 2022-02-09 10:50 | disposition hospice, home (50) | DRG 948 ==
LOC: ER 17:41 → ICU 21:17
PROVIDERS: ADMIT Internal Medicine; ATTEND Internal Medicine
DX: E87.5 Hyperkalemia; I11.0 Hypertensive heart disease with heart failure; R94.31 Abnormal electrocardiogram [ECG] [EKG]; I95.89 Other hypotension; I50.9 Heart failure, unspecified; R41.82 Altered mental status, unspecified; R62.7 Adult failure to thrive; R77.8 Other specified abnormalities of plasma proteins; N17.8 Other acute kidney failure; Z20.822 Contact with and (suspected) exposure to COVID-19; N39.0 Urinary tract infection, site not specified; E11.65 Type 2 diabetes mellitus with hyperglycemia; J44.9 Chronic obstructive pulmonary disease, unspecified

== ENCOUNTER 2023-02-18 17:19 | Inpatient (IN) ==
[2023-02-18 18:16] LABS: BASOPHILS % (AUTO) 0.3 % (0.2-1.0); HEMATOCRIT 32.4 % (36.0-47.0); HEMOGLOBIN 10.9 g/dL (12.0-16.0); MEAN CORPUSCULAR HEMOGLOBIN 30.2 pg (27.0-34.0); MEAN CORPUSCULAR HGB CONC 33.5 g/dL (33.0-35.0); MEAN CORPUSCULAR VOLUME 90.2 fL (80.0-100.0); MEAN PLATELET VOLUME 8.3 fL (7.4-11.0); MONOCYTES # (AUTO) 0.4 x10^3/uL (0.3-0.8); MONOCYTES % (AUTO) 8.4 % (0.0-13.0); NEUTROPHILS # (AUTO) 3.3 x10^3/uL (2.2-4.8); NEUTROPHILS % (AUTO) 70.3 % (42.0-75.0); PLATELET COUNT 136 X10^3/uL (150.0-450.0); RED CELL DISTRIBUTION WIDTH 15.2 % (11.6-16.5); WHITE BLOOD COUNT 4.7 X10^3/uL (3.6-10.0)
[2023-02-18 18:26] LABS: ALANINE AMINOTRANSFERASE < 6 Units/L (12-78); ALBUMIN 3.4 g/dL (3.4-5.0); ALKALINE PHOSPHATASE 94 Units/L (46-116); ASPARTATE AMINO TRANSFERASE 14 Units/L (15-37); BLOOD UREA NITROGEN 53 mg/dL (7-18); CALCIUM 8.2 mg/dL (8.5-10.1); CARBON DIOXIDE 26.9 mmol/L (21-32); CHLORIDE 104 mmol/L (98-107); COR NA(FOR HYPERGLY) 137 mmol/L (136-145); CREATININE 2.41 mg/dL (0.55-1.02); GLUCOSE 114 mg/dL (65-99); POTASSIUM 5.4 mmol/L (3.5-5.1); SODIUM 137 mmol/L (136-145); TOTAL PROTEIN 6.6 g/dL (6.4-8.2); eGFR NON BLACK RACES 22 (>60)
--- NOTE | 2023-02-18 19:06 | CT ---
HISTORYCONFUSION, FALLSTUDYBRAIN W/O CONCOMPARISONAugust 2021TECHNIQUEAxial non-contrast images of the head were obtained with coronal and sagittal reformats provided.Radiation dose: 917.54 mGy-cm total DLPFINDINGSNo abnormal areas of acute attenuation in the brain parenchyma.Malik-white differentiation remains intact.No intracranial, extra-axial, fluid collection.No hemorrhage.Periventricular chronic microvascular disease.No mass, mass effect or midline shift.Age related brain parenchymal global atrophy.No ventriculomegaly.No acute fracture.Sinuses are well aerated.Mastoid air cells are well aerated.Globes and intra-orbital contents are unremarkable.IMPRESSIONNo acute intracranial abnormality identified.Electronically signed by: Domingo Andrew (Feb 18, 2023 19:05:35)
--- NOTE | 2023-02-18 19:56 | DR.EXTPAIN ---
HPI Time seen Time Seen by Provider: 02/18/23 19:56 PCP Primary Care Physician: Leandro Monet Complaint/Symptoms Chief Complaint Doctor Comments: CHANGE IN MENTAL STATUS,UNSTABLE GAIT Chief Complaint:: EMS called to patient for fall and lift assist. Patient had fallen 2 days ago as well. She is a hospice patient for CHF. Patient complained of pain to right hip and pain right arm. Patient arrived to ED incoherrent and unable to answer simple questions. Patient does make eye contact with loud verbal stimuli. Move extremities and has equal dietary services manager bilaterally. Family states she has been responding this way for a week. COVID-19 Coronavirus risk:travel/contact w/high risk person: No Has patient experienced Coronavirus symptoms: No Source History Provided: EMS and Other Mode of arrival Mode of Arrival: EMS Timing Onset of Chief Complaint: 02/18/23 PMH PMH Past Medical History: Yes Past Medical History: Arthritis, CHF, COPD, Diabetes, Hypertension and Renal Disease Past Surgical History: No Surgical History: Unknown and No History Family History History of Family Medical Conditions: Yes Family Medical History: Diabetes Mellitus and Coronary Artery Disease Social History Does any household member use tobacco: No Alcohol Use: None Do you use any recreational Drugs:: No Lives With: Family Lives Where: Home Travel Risk Coronavirus risk:travel/contact w/high risk person: No Has patient experienced Coronavirus symptoms: No Infectious screening In the last 2 months have you had wt loss of >10#?: NO Have you had fever, night sweats or hemotysis?: No Have you traveled outside the country in the last 6 months?: No Isolation: Standard ROS Review of Systems Constitutional: Other (ALTERED MENTAL STATUS,FREQUENT FALLS) Eyes: No Symptoms Reported ENTM: No Symptoms Reported Respiratoy: No Symptoms Reported Cardiovascular: No Symptoms Reported Gastrointestinal/Abdominal: No Symptoms Reported Genitourinary: No Symptoms Reported Neurological: Other (ALTERED MENTAL STATUS) Musculoskeletal: No Symptoms Reported Integumentary: No Symptoms Reported Hematologic/Lymphatic: No Symptoms Reported Endocrine: No Symptoms Reported Psychiatric: No Symptoms Reported PE Vital Signs Vitals: Vital Signs Temperature 99.1 F Pulse Rate [Left Brachial] 67 Pulse Rate 72 Pulse Rate 70 Pulse Rate 69 Pulse Rate 68 Pulse Rate 68 Pulse Rate 66 Pulse Rate 65 Pulse Rate 66 Pulse Rate 65 Pulse Rate 66 Pulse Rate 67 Pulse Rate 67 Respiratory Rate 29 Respiratory Rate 39 Respiratory Rate 32 Respiratory Rate 31 Respiratory Rate 22 Respiratory Rate 22 Respiratory Rate 17 Respiratory Rate 23 Respiratory Rate 15 Respiratory Rate 20 Respiratory Rate 22 Blood Pressure [Left Arm] 126/59 Blood Pressure 98/61 O2 Sat by Pulse Oximetry 94 O2 Sat by Pulse Oximetry 92 O2 Sat by Pulse Oximetry 92 O2 Sat by Pulse Oximetry 91 O2 Sat by Pulse Oximetry 91 O2 Sat by Pulse Oximetry 93 O2 Sat by Pulse Oximetry 93 O2 Sat by Pulse Oximetry 92 O2 Sat by Pulse Oximetry 94 O2 Sat by Pulse Oximetry 93 O2 Sat by Pulse Oximetry 94 O2 Sat by Pulse Oximetry 96 O2 Sat by Pulse Oximetry 92 General Limitations: Physical Limitation (DUE TO ALTERED MENTAL STATUS AND UNSTABLE GAIT) General Appearance: Lethargic Head Head Exam: Normal Inspection, Atraumatic and Normocephalic Eyes Eye exam: PERRL ENT ENT Exam: Normal Exam and Other (EDENTULOUS) Neck Neck Exam: Normal Inspection and Trachea Midline Cardiovascular Cardiovascular Exam: Regular Rate and Normal Rhythm Abdominal Exam Abdominal Exam: Normal Inspection, Normal Bowel Sounds and Soft Extremities Extremities Exam: Normal Inspection Upper Extremities Shoulder Exam: Normal Inspection Arm Exam: Normal Inspection Elbow Exam: Normal Inspection Forearm Exam: Normal Inspection Hand Exam: Normal Inspection Lower Extremities Hip/Pelvis Exam: Normal Inspection Upper Leg Exam: Normal Inspection Knee Exam: Normal Inspection Ankle Exam: Normal Inspection Foot/Toe Exam: Normal Inspection Gait Exam: Not Tested/Not Observed Back Back Exam: Normal Inspection Neurological Neurological Exam: Other (DIISORIENTED X 3) Psychiatric Psychiatric Exam: Flat Affect Skin Skin Exam: Warm, Dry and Intact MDM Differential Diagnosis Differential Diagnosis: Other (ALTERED MENTAL STATUS,UNSTABLE GAIT,RENAL INSUFFICIENCY,ACCIDENTAL DRUG OVERDOSE) COURSE Treatment Treatment: PATIENT REMAINED RELATIVELY STABLE DURING ER EVALUATION. WAS ABLE TO BECOME MORE ALERT AFTE [address] OF BRAIN WAS NEGATIVE FOR ABNORMAL INTRACRANIAL ABNORMALITY. PATIENT HAD ELEVATED BUN OF 53 AND CREATINE OF 2.41 AND GFR OF 22. PATITIENT WAS DISCUSSED WITH DR ROQUE AT 2345 AND WILL BE AMMITTED FOR ALTERED MENTAL STATUS AND RENAL INSUFFICIENCY AND ACCIDENTAL DRUG OVERDOSE. ROR Labs Reviewed Laboratory Results Reviewed?: Yes 02/18/23 17:45 02/18/23 17:45 Laboratory: WBC 4.7 X10^3/uL (3.6-10.0) 02/18/23 17:45 RBC 3.60 X10^6/uL (3.5-5.4) 02/18/23 17:45 Hgb 10.9 g/dL (12.0-16.0) L 02/18/23 17:45 Hct 32.4 % (36.0-47.0) L 02/18/23 17:45 MCV 90.2 fL (80.0-100.0) 02/18/23 17:45 MCH 30.2 pg (27.0-34.0) 02/18/23 17:45 MCHC 33.5 g/dL (33.0-35.0) 02/18/23 17:45 RDW 15.2 % (11.6-16.5) 02/18/23 17:45 Plt Count 136 X10^3/uL (150.0-450.0) L 02/18/23 17:45 MPV 8.3 fL (7.4-11.0) 02/18/23 17:45 Neut % (Auto) 70.3 % (42.0-75.0) 02/18/23 17:45 Lymph % (Auto) 21.0 % (21.0-51.0) 02/18/23 17:45 [place] % (Auto) 8.4 % (0.0-13.0) 02/18/23 17:45 Eos % (Auto) 0.0 % (0.9-2.9) L 02/18/23 17:45 Baso % (Auto) 0.3 % (0.2-1.0) 02/18/23 17:45 Neut # (Auto) 3.3 x10^3/uL (2.2-4.8) 02/18/23 17:45 Lymph # (Auto) 1.0 X10^3/uL (1.3-2.9) L 02/18/23 17:45 [place] # (Auto) 0.4 x10^3/uL (0.3-0.8) 02/18/23 17:45 Eos # (Auto) 0.0 x10^3/uL (0.0-0.2) 02/18/23 17:45 Baso # (Auto) 0.0 X10^3/uL (0.0-0.1) 02/18/23 17:45 Absolute Nucleated RBC 0.2 /100WBC 02/18/23 17:45 Sodium 137 mmol/L (136-145) 02/18/23 17:45 Corrected Sodium 137 mmol/L (136-145) 02/18/23 17:45 Potassium 5.4 mmol/L (3.5-5.1) H 02/18/23 17:45 Chloride 104 mmol/L (98-107) 02/18/23 17:45 Carbon Dioxide 26.9 mmol/L (21-32) 02/18/23 17:45 BUN 53 mg/dL (7-18) H 02/18/23 17:45 Creatinine 2.41 mg/dL (0.55-1.02) H 02/18/23 17:45 Est GFR (MDRD) Af Amer 26 (>60) L 02/18/23 17:45 Est GFR (MDRD) Non-Af 22 (>60) L 02/18/23 17:45 Glucose 114 mg/dL (65-99) H 02/18/23 17:45 Calcium 8.2 mg/dL (8.5-10.1) L 02/18/23 17:45 Corrected Calcium TNP 02/18/23 17:45 Total Bilirubin 0.40 mg/dL (0.2-1.0) 02/18/23 17:45 AST 14 Units/L (15-37) L 02/18/23 17:45 ALT < 6 Units/L (12-78) L 02/18/23 17:45 Alkaline Phosphatase 94 Units/L (46-116) 02/18/23 17:45 Total Protein 6.6 g/dL (6.4-8.2) 02/18/23 17:45 Albumin 3.4 g/dL (3.4-5.0) 02/18/23 17:45 Globulin 3.2 g/dL (2.5-4.5) 02/18/23 17:45 Albumin/Globulin Ratio 1.1 Ratio (1.1-2.1) 02/18/23 17:45 Opioid Opioid Risk Tool Age (Kevin box if 16-45): No History of Preadolescent Sexual Abuse: No Total: 0 Total Score Risk Category: Low Risk Copyright: Donell BOBO predicting aberrant behaviors Discharge Plan Diagnosis Discharge Problem: Altered mental status, Renal insufficiency Discharge Plan Patient Disposition: ADMITTED INPATIENT Condition: Stable Prescriptions: No Action glipizide 2.5 mg Tablet Extended Release 24hr 2.5 mg PO DAILY acetaminophen 650 mg suppository 1 supp UT Q4H PRN morphine concentrate 100 mg/5 mL (20 mg/mL) solution 0.5 - 2 ml PO Q2H PRN (Reason: dyspnea) hydrocodone-acetaminophen 5-325 mg tablet 1 tab PO Q6H PRN (Reason: pain) ondansetron HCl 4 mg Tablet 4 mg PO Q6H PRN lorazepam 0.5 mg tablet 1 - 4 tab PO Q2H PRN (Reason: anxiety) prochlorperazine [Compro] 25 mg suppository 1 supp UT Q12H PRN (Reason: nausea/vomiting) bisacodyl 10 mg suppository 1 supp UT 1-2XD hyoscyamine sulfate 0.125 mg tablet, sublingual 0.125 mg PO Q4H PRN Entresto 24-26 mg tablet 1 tab PO BID furosemide [Lasix] 40 mg Tablet 40 mg PO QDAY carvedilol 6.25 mg Tablet 6.25 mg PO BID Rx Instructions: must administer with a meal/food aspirin [Aspir-81] 81 mg Tablet,Delayed Release (Dr/Ec) 81 mg PO DAILY paroxetine HCl 20 mg Tablet 20 mg PO QDAY nitroglycerin 0.4 mg Tablet, Sublingual 0.4 mg SUBLINGUAL Q5M PRN Rx Instructions: do not exceed 3 doses per episode gabapentin 400 mg Capsule 400 mg PO TID potassium chloride 10 mEq Tablet Extended Release 10 meq PO QDAY amitriptyline 25 mg Tablet 25 mg PO QHS meclizine 25 mg Tablet 25 mg PO QDAY amlodipine 10 mg Tablet 10 mg PO QDAY naproxen sodium 220 mg Tablet 220 mg PO BID PRN loratadine 10 mg Tablet 10 mg PO QDAY Health Concerns: Post Hospitalization: new medications and changes needed to prevent readmission or further decline. Pt educated and given instructions on all concerns. Plan of Treatment: Continue with present treatment and follow up plan. Pt is to keep follow up appointment as instructed and take medications as ordered. Orders to Discharge Patient Discharge Orders: Transfer (Routine); Ordered 02/19/23 Ordered By: Demetris Corral Follow ups/Referrals Follow ups/Referrals: LESTER CASTRO [Primary Care Provider] - 3 days Instructions Stand Alone Forms: Post Hospital Follow Up Care
--- NOTE | 2023-02-19 00:45 | RAD ---
HISTORYcoughSTUDYCHEST, 1 VIEWCOMPARISONNone.TECHNIQUEA single frontal view of the chest was obtained.FINDINGSThere are multiple EKG leads and wires seen overlying the patient. There is moderate cardiomegaly with left ventricular hypertrophy. There is increased hazy density to the right lung base. There is no effusion. There is no pneumothorax. The osseous structures are intact.IMPRESSIONModerate to severe cardiomegaly.Query right lung base alveolar infiltrate. Correlate with breath sounds. Alternatively, this could represent increased density from the overlying breast tissue.Electronically signed by: Pao Parson (Feb 19, 2023 00:43:29)
[2023-02-19 01:09] LABS: BILIRUBIN,URINE NEGATIVE (NEGATIVE); BLOOD/HEMOGLOBIN,URINE 1+ (NEGATIVE); GLUCOSE, URINE NEGATIVE (NEGATIVE); KETONES,URINE NEGATIVE (NEGATIVE); LEUKOCYTE ESTERASE ,URINE NEGATIVE (NEGATIVE); NITRITES,URINE NEGATIVE (NEGATIVE); PROTEIN,URINE 2+ (NEGATIVE); UROBILINOGEN,URINE NORMAL (NORMAL)
[2023-02-19 01:21] LABS: APPEARANCE,URINE CLEAR (CLEAR); COLOR,URINE YELLOW (YELLOW)
[2023-02-19 01:22] LABS: BACTERIA,URINE NEGATIVE /HPF (NEGATIVE); HYALINE CASTS, URINE FEW /LPF (NEGATIVE); SQUAMOUS EPITHELIAL CELL,UR RARE /HPF (NEGATIVE)
[2023-02-19] MEDS ORDERED: ROCEPHIN VIAL 1 GRAM ONE (01:30)
[2023-02-19] MEDS ORDERED: ROCEPHIN VIAL 1 GRAM IV ONE (01:32)
[2023-02-19] MEDS ORDERED: ROCEPHIN VIAL 1 GRAM 1 G in NS 100 ML IV 100 ML IV ONE (01:34)
[2023-02-19 02:15] LABS: BASOPHILS # (AUTO) 0.1 X10^3/uL (0.0-0.1); HEMATOCRIT 33.9 % (36.0-47.0); HEMOGLOBIN 11.4 g/dL (12.0-16.0); LYMPHOCYTES # (AUTO) 0.7 X10^3/uL (1.3-2.9); LYMPHOCYTES % (AUTO) 11.7 % (21.0-51.0); MEAN CORPUSCULAR HEMOGLOBIN 30.1 pg (27.0-34.0); MEAN CORPUSCULAR HGB CONC 33.5 g/dL (33.0-35.0); MEAN PLATELET VOLUME 8.3 fL (7.4-11.0); MONOCYTES # (AUTO) 0.4 x10^3/uL (0.3-0.8); MONOCYTES % (AUTO) 6.8 % (0.0-13.0); NEUTROPHILS # (AUTO) 4.5 x10^3/uL (2.2-4.8); NEUTROPHILS % (AUTO) 80.5 % (42.0-75.0); PLATELET COUNT 140 X10^3/uL (150.0-450.0); RED BLOOD COUNT 3.77 X10^6/uL (3.5-5.4); RED CELL DISTRIBUTION WIDTH 15.2 % (11.6-16.5); WHITE BLOOD COUNT 5.6 X10^3/uL (3.6-10.0)
[2023-02-19 02:26] LABS: ALANINE AMINOTRANSFERASE 8 Units/L (12-78); ALBUMIN 3.5 g/dL (3.4-5.0); ALKALINE PHOSPHATASE 97 Units/L (46-116); ASPARTATE AMINO TRANSFERASE 12 Units/L (15-37); BLOOD UREA NITROGEN 51 mg/dL (7-18); CALCIUM 8.3 mg/dL (8.5-10.1); CARBON DIOXIDE 30.3 mmol/L (21-32); CHLORIDE 104 mmol/L (98-107); COR NA(FOR HYPERGLY) 139 mmol/L (136-145); CREATININE 2.26 mg/dL (0.55-1.02); GLUCOSE 124 mg/dL (65-99); SODIUM 138 mmol/L (136-145); TOTAL PROTEIN 6.9 g/dL (6.4-8.2); eGFR NON BLACK RACES 23 (>60)
[2023-02-19 02:28] LABS: POTASSIUM 5.7 mmol/L (3.5-5.1)
--- NOTE | 2023-02-19 05:00 | DR.EXTPAIN ---
HPI Time seen Time Seen by Provider: 02/18/23 19:56 PCP Primary Care Physician: Leandro Monet Complaint/Symptoms Chief Complaint:: EMS called to patient for fall and lift assist. Patient had fallen 2 days ago as well. She is a hospice patient for CHF. Patient complained of pain to right hip and pain right arm. Patient arrived to ED incoherrent and unable to answer simple questions. Patient does make eye contact with loud verbal stimuli. Move extremities and has equal fountain vending mechanic bilaterally. Family states she has been responding this way for a week. COVID-19 Coronavirus risk:travel/contact w/high risk person: No Has patient experienced Coronavirus symptoms: No Source History Provided: EMS and Other Mode of arrival Mode of Arrival: EMS Timing Onset of Chief Complaint: 02/18/23 PMH PMH Past Medical History: Yes Past Medical History: Arthritis, CHF, COPD, Diabetes, Hypertension and Renal Disease Past Surgical History: No Surgical History: Unknown and No History Family History History of Family Medical Conditions: Yes Family Medical History: Diabetes Mellitus and Coronary Artery Disease Social History Does any household member use tobacco: No Alcohol Use: None Do you use any recreational Drugs:: No Lives With: Family Lives Where: Home Travel Risk Coronavirus risk:travel/contact w/high risk person: No Has patient experienced Coronavirus symptoms: No Infectious screening In the last 2 months have you had wt loss of >10#?: NO Have you had fever, night sweats or hemotysis?: No Have you traveled outside the country in the last 6 months?: No Isolation: Standard PE Vital Signs Vitals: Vital Signs Pulse Rate 79 Pulse Rate 86 Pulse Rate 82 Pulse Rate 76 Pulse Rate 80 Pulse Rate 76 Pulse Rate 75 Pulse Rate 74 Pulse Rate 72 Pulse Rate 71 Pulse Rate 72 Pulse Rate 70 Pulse Rate 72 Pulse Rate 73 Pulse Rate 73 Pulse Rate 72 Respiratory Rate 29 Respiratory Rate 32 Respiratory Rate 52 Respiratory Rate 44 Respiratory Rate 29 Respiratory Rate 41 Respiratory Rate 43 Respiratory Rate 24 Respiratory Rate 39 Respiratory Rate 36 Respiratory Rate 37 Respiratory Rate 35 Respiratory Rate 42 Respiratory Rate 38 Respiratory Rate 34 Respiratory Rate 29 Blood Pressure 122/61 Blood Pressure 130/91 O2 Sat by Pulse Oximetry 91 O2 Sat by Pulse Oximetry 93 O2 Sat by Pulse Oximetry 82 O2 Sat by Pulse Oximetry 91 O2 Sat by Pulse Oximetry 92 O2 Sat by Pulse Oximetry 94 ROR Labs Reviewed 02/19/23 01:40 02/19/23 01:40 Laboratory: WBC 4.7 X10^3/uL (3.6-10.0) 02/18/23 17:45 RBC 3.60 X10^6/uL (3.5-5.4) 02/18/23 17:45 Hgb 10.9 g/dL (12.0-16.0) L 02/18/23 17:45 Hct 32.4 % (36.0-47.0) L 02/18/23 17:45 MCV 90.2 fL (80.0-100.0) 02/18/23 17:45 MCH 30.2 pg (27.0-34.0) 02/18/23 17:45 MCHC 33.5 g/dL (33.0-35.0) 02/18/23 17:45 RDW 15.2 % (11.6-16.5) 02/18/23 17:45 Plt Count 136 X10^3/uL (150.0-450.0) L 02/18/23 17:45 MPV 8.3 fL (7.4-11.0) 02/18/23 17:45 Neut % (Auto) 70.3 % (42.0-75.0) 02/18/23 17:45 Lymph % (Auto) 21.0 % (21.0-51.0) 02/18/23 17:45 [place] % (Auto) 8.4 % (0.0-13.0) 02/18/23 17:45 Eos % (Auto) 0.0 % (0.9-2.9) L 02/18/23 17:45 Baso % (Auto) 0.3 % (0.2-1.0) 02/18/23 17:45 Neut # (Auto) 3.3 x10^3/uL (2.2-4.8) 02/18/23 17:45 Lymph # (Auto) 1.0 X10^3/uL (1.3-2.9) L 02/18/23 17:45 [place] # (Auto) 0.4 x10^3/uL (0.3-0.8) 02/18/23 17:45 Eos # (Auto) 0.0 x10^3/uL (0.0-0.2) 02/18/23 17:45 Baso # (Auto) 0.0 X10^3/uL (0.0-0.1) 02/18/23 17:45 Absolute Nucleated RBC 0.2 /100WBC 02/18/23 17:45 Sodium 137 mmol/L (136-145) 02/18/23 17:45 Corrected Sodium 137 mmol/L (136-145) 02/18/23 17:45 Potassium 5.4 mmol/L (3.5-5.1) H 02/18/23 17:45 Chloride 104 mmol/L (98-107) 02/18/23 17:45 Carbon Dioxide 26.9 mmol/L (21-32) 02/18/23 17:45 BUN 53 mg/dL (7-18) H 02/18/23 17:45 Creatinine 2.41 mg/dL (0.55-1.02) H 02/18/23 17:45 Est GFR (MDRD) Af Amer 26 (>60) L 02/18/23 17:45 Est GFR (MDRD) Non-Af 22 (>60) L 02/18/23 17:45 Glucose 114 mg/dL (65-99) H 02/18/23 17:45 Calcium 8.2 mg/dL (8.5-10.1) L 02/18/23 17:45 Corrected Calcium TNP 02/18/23 17:45 Total Bilirubin 0.40 mg/dL (0.2-1.0) 02/18/23 17:45 AST 14 Units/L (15-37) L 02/18/23 17:45 ALT < 6 Units/L (12-78) L 02/18/23 17:45 Alkaline Phosphatase 94 Units/L (46-116) 02/18/23 17:45 Total Protein 6.6 g/dL (6.4-8.2) 02/18/23 17:45 Albumin 3.4 g/dL (3.4-5.0) 02/18/23 17:45 Globulin 3.2 g/dL (2.5-4.5) 02/18/23 17:45 Albumin/Globulin Ratio 1.1 Ratio (1.1-2.1) 02/18/23 17:45 Opioid Opioid Risk Tool Age (Kevin box if 16-45): No History of Preadolescent Sexual Abuse: No Total: 0 Total Score Risk Category: Low Risk Copyright: Donell BOBO predicting aberrant behaviors Discharge Plan Diagnosis Discharge Problem: Altered mental status, Renal insufficiency Discharge Plan Patient Disposition: 09 ADMITTED INPATIENT Condition: Stable
[2023-02-19] MEDS ORDERED: ROBITUSSIN (PLAIN) ONE (08:10)
[2023-02-19] MEDS: ROBITUSSIN (PLAIN) PO PRN ×4 (08:16→23:19)
[2023-02-19] MEDS: XOPENEX 1.25 MG/3 ML NEBULE NEB SCH ×5 (08:52→20:51)
[2023-02-19] MEDS: ENTRESTO 24/26 MG TABLET PO SCH ×2 (08:54→20:20)
[2023-02-19] MEDS: PAXIL PO SCH (08:54)
[2023-02-19] MEDS ORDERED: ASPIRIN EC 81 MG PO ONE (10:56)
[2023-02-19] MEDS ORDERED: ANTIVERT TAB 25 MG PO ONE (10:56)
[2023-02-19] MEDS: NEURONTIN CAP 400 MG PO SCH ×3 (11:52→21:10)
[2023-02-19] MEDS: NORCO 5/325 MG TAB PO PRN ×2 (11:53→23:18)
[2023-02-19] MEDS: NORVASC TAB 10 MG PO SCH (11:56)
[2023-02-19] MEDS: CLARITIN PO SCH (11:56)
[2023-02-19] MEDS: GLUCOTROL PO SCH (11:56)
--- NOTE | 2023-02-19 12:23 | DR.H&P ---
H&P History & Physical for Day of: H&P Date: 02/19/23 Chief Complaint Chief Complaint: Altered mental status Allergies Allergies Allergy/AdvReac Type Severity Reaction Status Date / Time No Known Drug Allergies Allergy Unknown Unverified 02/14/20 13:34 History of Present Illness History of Present Illness: Pt is a 62 year old female that is a hospice patient for CHF presenting after fall and lift assist. On arrival to ED patient presented with altered mental status and was unable to answer simple questions. Labs/imaging: Wbc 5.6, Hgb 11.4, Plt 140, Na 138, K 5.7, Creatinine 2.26, Glucose 124, UA negative, UDS: positive for opioids. Blood cultures pending, CT brain negative for acute intracranial abnormalities, CXR was obtained that revealed: Moderate to severe cardiomegaly. Query right lung base alveolar infiltrate. Pt was admitted for altered mental status and pneumonia. Appears confusion likely related to polypharmacy as patient appears to be near baseline on mental status. Will continue to observe and restart home medications. Will treat possible infiltrate with Rocephin and get AIT respiratory panel. Continue to closely monitor and follow up labs/imaging in the morning. Past Medical History Past Medical History: Arthritis, CHF, COPD, Diabetes, Hypertension and Renal Disease Past Surgical History Surgical History: Unknown and No History Family History Family Medical History: Diabetes Mellitus and Coronary Artery Disease Social History Does any household member use tobacco: No Alcohol Use: None Medications Home Medications: Home Medications Medication Instructions Recorded Confirmed Type glipizide 2.5 mg tablet, extended 2.5 mg PO DAILY 02/01/20 02/18/23 History release 24 hr acetaminophen 650 mg rectal 1 supp HI Q4H PRN 02/02/22 02/18/23 History suppository bisacodyl 10 mg rectal suppository 1 supp HI 1-2XD 02/02/22 02/18/23 History hydrocodone 5 mg-acetaminophen 325 1 tab PO Q6H PRN pain 02/02/22 02/18/23 His tory mg tablet hyoscyamine sulfate 0.125 mg 0.125 mg PO Q4H PRN 02/02/22 02/18/23 History sublingual tablet lorazepam 0.5 mg tablet 1 - 4 tab PO Q2H PRN anxiety 02/02/22 02/18/23 History morphine concentrate 100 mg/5 mL 0.5 - 2 ml PO Q2H PRN dyspnea 02/02/22 02/18/23 History (20 mg/mL) oral solution ondansetron HCl 4 mg tablet 4 mg PO Q6H PRN 02/02/22 02/18/23 History prochlorperazine 25 mg rectal 1 supp HI Q12H PRN nausea/vomiting 02/02/22 02/18/23 History suppository (Compro) sacubitril 24 mg-valsartan 26 mg 1 tab PO BID 02/02/22 02/18/23 History tablet (Entresto) amitriptyline 25 mg tablet 25 mg PO QHS 02/18/23 02/18/23 History amlodipine 10 mg tablet 10 mg PO QDAY 02/18/23 02/18/23 History aspirin 81 mg tablet,delayed 81 mg PO DAILY 02/18/23 02/18/23 History release carvedilol 6.25 mg tablet 6.25 mg PO BID 02/18/23 02/18/23 History furosemide 40 mg tablet (Lasix) 40 mg PO QDAY 02/18/23 02/18/23 History gabapentin 400 mg capsule 400 mg PO TID 02/18/23 02/18/23 History loratadine 10 mg tablet 10 mg PO QDAY 02/18/23 02/18/23 History meclizine 25 mg tablet 25 mg PO QDAY 02/18/23 02/18/23 History naproxen sodium 220 mg tablet 220 mg PO BID PRN 02/18/23 02/18/23 History nitroglycerin 0.4 mg sublingual 0.4 mg sublingual Q5M PRN 02/18/23 02/18/23 History tablet paroxetine HCl 20 mg tablet 20 mg PO QDAY 02/18/23 02/18/23 History potassium chloride 10 mEq 10 meq PO QDAY 02/18/23 02/18/23 History tablet,extended release Labs 02/19/23 01:40 02/19/23 01:40 Labs: Laboratory WBC 5.6 X10^3/uL (3.6-10.0) 02/19/23 01:40 RBC 3.77 X10^6/uL (3.5-5.4) 02/19/23 01:40 Hgb 11.4 g/dL (12.0-16.0) L 08/19/23 01:40 Hct 33.9 % (36.0-47.0) L 02/19/23 01:40 MCV 90.0 fL (80.0-100.0) 02/19/23 01:40 MCH 30.1 pg (27.0-34.0) 02/19/23 01:40 MCHC 33.5 g/dL (33.0-35.0) 02/19/23 01:40 RDW 15.2 % (11.6-16.5) 02/19/23 01:40 Plt Count 140 X10^3/uL (150.0-450.0) L 02/19/23 01:40 MPV 8.3 fL (7.4-11.0) 02/19/23 01:40 Neut % (Auto) 80.5 % (42.0-75.0) H 02/19/23 01:40 Lymph % (Auto) 11.7 % (21.0-51.0) L 02/19/23 01:40 [place] % (Auto) 6.8 % (0.0-13.0) 02/19/23 01:40 Eos % (Auto) 0.0 % (0.9-2.9) L 02/19/23 01:40 Baso % (Auto) 1.0 % (0.2-1.0) 02/19/23 01:40 Neut # (Auto) 4.5 x10^3/uL (2.2-4.8) 02/19/23 01:40 Lymph # (Auto) 0.7 X10^3/uL (1.3-2.9) L 02/19/23 01:40 [place] # (Auto) 0.4 x10^3/uL (0.3-0.8) 02/19/23 01:40 Eos # (Auto) 0.0 x10^3/uL (0.0-0.2) 02/19/23 01:40 Baso # (Auto) 0.1 X10^3/uL (0.0-0.1) 02/19/23 01:40 Absolute Nucleated RBC 0.1 /100WBC 02/19/23 01:40 Sodium 138 mmol/L (136-145) 02/19/23 01:40 Corrected Sodium 139 mmol/L (136-145) 02/19/23 01:40 Potassium 5.7 mmol/L (3.5-5.1) H 02/19/23 01:40 Chloride 104 mmol/L (98-107) 02/19/23 01:40 Carbon Dioxide 30.3 mmol/L (21-32) 02/19/23 01:40 BUN 51 mg/dL (7-18) H 02/19/23 01:40 Creatinine 2.26 mg/dL (0.55-1.02) H 02/19/23 01:40 Est GFR (MDRD) Af Amer 28 (>60) L 02/19/23 01:40 Est GFR (MDRD) Non-Af 23 (>60) L 02/19/23 01:40 Glucose 124 mg/dL (65-99) H 02/19/23 01:40 Calcium 8.3 mg/dL (8.5-10.1) L 02/19/23 01:40 Corrected Calcium TNP 02/19/23 01:40 Total Bilirubin 0.50 mg/dL (0.2-1.0) 02/19/23 01:40 AST 12 Units/L (15-37) L 02/19/23 01:40 ALT 8 Units/L (12-78) L 02/19/23 01:40 Alkaline Phosphatase 97 Units/L (46-116) 02/19/23 01:40 Total Protein 6.9 g/dL (6.4-8.2) 02/19/23 01:40 Albumin 3.5 g/dL (3.4-5.0) 02/19/23 01:40 Globulin 3.4 g/dL (2.5-4.5) 02/19/23 01:40 Albumin/Globulin Ratio 1.0 Ratio (1.1-2.1) L 02/19/23 01:40 Specimen Type Catherized urine 02/19/23 00:55 Urine Color Yellow (YELLOW) 02/19/23 00:55 Urine Appearance Clear (CLEAR) 02/19/23 00:55 Urine pH 5.0 (5.0 - 8.0) 02/19/23 00:55 Ur Specific [place] 1.020 (1.000-1.030) 02/19/23 00:55 Urine Protein 2+ (NEGATIVE) 02/19/23 00:55 Urine Glucose (UA) Negative (NEGATIVE) 02/19/23 00:55 Urine Ketones Negative (NEGATIVE) 02/19/23 00:55 Urine Blood 1+ (NEGATIVE) 02/19/23 00:55 Urine Nitrite Negative (NEGATIVE) 02/19/23 00:55 Urine Bilirubin Negative (NEGATIVE) 02/19/23 00:55 Urine Urobilinogen Normal (NORMAL) 02/19/23 00:55 Ur Leukocyte Esterase Negative (NEGATIVE) 02/19/23 00:55 Urine RBC 3-5 /HPF (0-3) A 02/19/23 00:55 Urine WBC None seen /HPF (0-5) 02/19/23 00:55 Ur Squamous Epith Cells Rare /HPF (NEGATIVE) 02/19/23 00:55 Urine Bacteria Negative /HPF (NEGATIVE) 02/19/23 00:55 Hyaline Casts Few /LPF (NEGATIVE) 02/19/23 00:55 Ur Culture Indicated? No/not indicated 02/19/23 00:55 Review of Systems Constitutional: Weakness Eyes: No Symptoms Reported ENT: No Symptoms Reported Respiratory: Cough and Shortness of Breath Cardiovascular: No Symptoms Reported Gastrointestinal: No Symptoms Reported Genitourinary: No Symptoms Reported Musculoskeletal: No Symptoms Reported Skin: No Symptoms Reported Neurological: Confusion Physical Exam Vital Signs: Vital Signs Temperature 98.2 F Pulse Rate [Left] 92 Pulse Rate 101 Respiratory Rate 22 Respiratory Rate 32 Blood Pressure [Right Arm] 186/71 O2 Sat by Pulse Oximetry 94 O2 Sat by Pulse Oximetry 92 Oriented: Normal Eyes: Normal Ear: Normal Nose: Normal Throat: Normal Respiratory: Diminished Throughout Cardiovascular: Normal : Normal Auscultation: Bowel Sounds: Normal Palpation: Normal Tenderness: Normal Skin: Normal Musculoskeletal: Normal Psychiatric: Normal Mood Description: Calm and Appropriate Affect: Normal Speech Pattern: Clear and Appropriate Assessment/Plan (1) Altered mental status: Narrative Support Text: Possibly due to polypharmacy, appears back to baseline, continue to monitor. Status: Acute (2) Acute hyperkalemia: Status: Acute Plan: Monitor at this time. (3) Pneumonia: Narrative Support Text: IV rocephin Status: Acute Review H&P Reviewed: Yes Patient was examined?: Yes
[2023-02-19 14:02] VITALS: BMI 42.0
[2023-02-19] MEDS: NS 1,000 ML IV 1,000 ML IV SCH (18:35)
[2023-02-19] MEDS: SNACK - Diabetic Appropriate PO SCH (20:20)
[2023-02-19] MEDS: ELAVIL PO SCH (20:20)
[2023-02-19] MEDS ORDERED: MORPHINE SULFATE INJ 2 MG INJ IVP ONE (23:42)
[2023-02-20] MEDS: NEURONTIN CAP 400 MG PO SCH ×3 (05:37→21:11)
[2023-02-20 06:10] LABS: BASOPHILS % (AUTO) 0.1 % (0.2-1.0); HEMATOCRIT 30.3 % (36.0-47.0); HEMOGLOBIN 10.2 g/dL (12.0-16.0); LYMPHOCYTES # (AUTO) 0.7 X10^3/uL (1.3-2.9); MEAN CORPUSCULAR HEMOGLOBIN 30.1 pg (27.0-34.0); MEAN CORPUSCULAR HGB CONC 33.7 g/dL (33.0-35.0); MEAN CORPUSCULAR VOLUME 89.5 fL (80.0-100.0); MEAN PLATELET VOLUME 8.6 fL (7.4-11.0); MONOCYTES # (AUTO) 0.5 x10^3/uL (0.3-0.8); MONOCYTES % (AUTO) 8.8 % (0.0-13.0); NEUTROPHILS # (AUTO) 4.9 x10^3/uL (2.2-4.8); NEUTROPHILS % (AUTO) 80.1 % (42.0-75.0); PLATELET COUNT 114 X10^3/uL (150.0-450.0); RED BLOOD COUNT 3.38 X10^6/uL (3.5-5.4); RED CELL DISTRIBUTION WIDTH 15.4 % (11.6-16.5); WHITE BLOOD COUNT 6.1 X10^3/uL (3.6-10.0)
[2023-02-20 06:22] LABS: ALBUMIN 3.2 g/dL (3.4-5.0); CALCIUM 8.1 mg/dL (8.5-10.1); CARBON DIOXIDE 25.4 mmol/L (21-32); COR CA(FOR HYPOALB) 8.7 mg/dL (8.5-10.1); CREATININE 1.71 mg/dL (0.55-1.02); POTASSIUM 5.4 mmol/L (3.5-5.1); TOTAL PROTEIN 6.5 g/dL (6.4-8.2)
[2023-02-20] MEDS: NORCO 5/325 MG TAB PO PRN ×3 (06:29→21:27)
[2023-02-20] MEDS: ROBITUSSIN (PLAIN) PO PRN (06:29)
--- NOTE | 2023-02-20 07:24 | RAD ---
HISTORYf/u pneumoniaSTUDYCHEST, 1 VIEWCOMPARISONChest one view from 02/1923.FINDINGSSupport devices: None.Heart/mediastinum: Similar cardiomegaly with increased central vascular congestion versus other perihilar opacities.Lungs: Interval worsening of bilateral pulmonary opacities, especially along the right lung base. A probable small/moderate right pleural effusion has enlarged. No pneumothorax.Additional findings: None.IMPRESSIONInterval worsening of bilateral pneumonia with similar cardiomegaly.Electronically signed by: Johann Fritz (Feb 20, 2023 07:23:52)
[2023-02-20] MEDS: XOPENEX 1.25 MG/3 ML NEBULE NEB SCH ×4 (08:47→20:00)
[2023-02-20] MEDS ORDERED: ROCEPHIN VIAL 1 GRAM 1 G in NS 100 ML IV 100 ML IV SCH (09:00)
[2023-02-20] MEDS: NS 1,000 ML IV 1,000 ML IV SCH ×2 (09:45→17:01)
[2023-02-20] MEDS: GLUCOTROL PO SCH (09:50)
[2023-02-20] MEDS: PAXIL PO SCH (09:51)
[2023-02-20] MEDS: CLARITIN PO SCH (09:51)
[2023-02-20] MEDS: ENTRESTO 24/26 MG TABLET PO SCH ×2 (09:51→21:11)
[2023-02-20] MEDS: NORVASC TAB 10 MG PO SCH (09:51)
[2023-02-20] MEDS ORDERED: LASIX IVP ONE (09:53)
[2023-02-20] MEDS: LEVAQUIN PREMIX IV 500 MG 500 MG/100 ML BAG IV SCH (09:55)
[2023-02-20] MEDS: LASIX IVP SCH ×2 (09:56→21:11)
[2023-02-20] MEDS: LEVAQUIN PREMIX IV 500 MG 500 MG/100 ML BAG IV ONE (10:14)
--- NOTE | 2023-02-20 19:50 | PCM.PROG ---
Progress Note Progress Note for Day of Date of Exam: 02/20/23 Subjective Subjective: Pt is a 62 year old female that is a hospice patient for CHF admitted for acute CHF exacerbation, altered mental status due to polypharmacy, acute respiratory failure, and acute kidney injury. Overnight patient's symptoms appeared to decline with more shortness of breath that now requires non- rebreather ventilation mask. Labs/imaging: Wbc 6.1, Hgb 10.2, Plt 114, Na 136, K 5.4, Creatinine 2.26>1.71, Glucose 133, Blood cultures pending CXR this morning was obtained that revealed: interval worsening of bilateral pneumonia with similar cardiomegaly. Patient's mentation appears to have significantly improved back to baseline. Plan: Wean O2 as tolerated to keep sats > 92%. Order IV Lasix 40 mg twice daily, monitor I/Os. Continue telemetry. Change IV antibiotics to Levaquin for pneumonia. DC IVF. Patient also stated that she had difficulty sleeping at night we will add on Restoril at night. Home medications have been resumed. AIT respiratory panel pending. Otherwise continue with current treatment plan. Continue to closely monitor and follow up labs/imaging in the morning. Time spent for clinical assessment, reviewing labs/imaging, physical exam, decision making and documentation greater than 45 mins. Past Medical Family Social History Allergies: Allergies No Known Drug Allergies Allergy (Unknown, Unverified 02/14/20 13:34) Onset Date: 02/14/2020 Review of Systems ROS changes noted: see HPI Vital Signs and I&O's Vital Signs: Vital Signs Temperature 97.4 F Temperature 97.4 F Pulse Rate [Left] 89 Pulse Rate [Left] 89 Respiratory Rate 30 Respiratory Rate 30 Respiratory Rate 30 Respiratory Rate 30 O2 Sat by Pulse Oximetry 95 O2 Sat by Pulse Oximetry 95 Intake and Output: Intake & Output 02/17/23 02/18/23 02/19/23 02/20/23 23:59 23:59 23:59 23:59 Intake Total 1646 / 1646 1818 Output Total 1650 / 1650 Balance -4 / -4 1818 Physical Exam Oriented: Normal Eyes: Normal Ear: Normal Nose: Normal Throat: Normal Respiratory: Diminished and Rhonchi Cardiovascular: Normal : Normal Auscultation: Bowel Sounds: Normal Tenderness: Normal Skin: Normal Musculoskeletal: Normal Psychiatric: Normal Mood Description: Calm Affect: Normal Speech Pattern: Clear and Inappropriate Laboratory and Diagnostics 02/20/23 05:25 02/20/23 05:25 Labs: Laboratory WBC 6.1 X10^3/uL (3.6-10.0) 02/20/23 05:25 RBC 3.38 X10^6/uL (3.5-5.4) L 02/20/23 05:25 Hgb 10.2 g/dL (12.0-16.0) L 02/20/23 05:25 Hct 30.3 % (36.0-47.0) L 02/20/23 05:25 MCV 89.5 fL (80.0-100.0) 02/20/23 05:25 MCH 30.1 pg (27.0-34.0) 02/20/23 05:25 MCHC 33.7 g/dL (33.0-35.0) 02/20/23 05:25 RDW 15.4 % (11.6-16.5) 02/20/23 05:25 Plt Count 114 X10^3/uL (150.0-450.0) L 02/20/23 05:25 MPV 8.6 fL (7.4-11.0) 02/20/23 05:25 Neut % (Auto) 80.1 % (42.0-75.0) H 02/20/23 05:25 Lymph % (Auto) 11.0 % (21.0-51.0) L 02/20/23 05:25 [place] % (Auto) 8.8 % (0.0-13.0) 02/20/23 05:25 Eos % (Auto) 0.0 % (0.9-2.9) L 02/20/23 05:25 Baso % (Auto) 0.1 % (0.2-1.0) L 02/20/23 05:25 Neut # (Auto) 4.9 x10^3/uL (2.2-4.8) H 02/20/23 05:25 Lymph # (Auto) 0.7 X10^3/uL (1.3-2.9) L 02/20/23 05:25 [place] # (Auto) 0.5 x10^3/uL (0.3-0.8) 02/20/23 05:25 Eos # (Auto) 0.0 x10^3/uL (0.0-0.2) 02/20/23 05:25 Baso # (Auto) 0.0 X10^3/uL (0.0-0.1) 02/20/23 05:25 Absolute Nucleated RBC 0.1 /100WBC 02/20/23 05:25 Sodium 136 mmol/L (136-145) 02/20/23 05:25 Corrected Sodium 137 mmol/L (136-145) 02/20/23 05:25 Potassium 5.4 mmol/L (3.5-5.1) H 02/20/23 05:25 Chloride 104 mmol/L (98-107) 02/20/23 05:25 Carbon Dioxide 25.4 mmol/L (21-32) 02/20/23 05:25 BUN 45 mg/dL (7-18) H 02/20/23 05:25 Creatinine 1.71 mg/dL (0.55-1.02) H 02/20/23 05:25 Est GFR (MDRD) Af Amer 39 (>60) L 02/20/23 05:25 Est GFR (MDRD) Non-Af 32 (>60) L 02/20/23 05:25 Glucose 133 mg/dL (65-99) H 02/20/23 05:25 Calcium 8.1 mg/dL (8.5-10.1) L 02/20/23 05:25 Corrected Calcium 8.7 mg/dL (8.5-10.1) 02/20/23 05:25 Total Bilirubin 0.50 mg/dL (0.2-1.0) 02/20/23 05:25 AST 42 Units/L (15-37) H 02/20/23 05:25 ALT 9 Units/L (12-78) L 02/20/23 05:25 Alkaline Phosphatase 84 Units/L (46-116) 02/20/23 05:25 Total Protein 6.5 g/dL (6.4-8.2) 02/20/23 05:25 Albumin 3.2 g/dL (3.4-5.0) L 02/20/23 05:25 Globulin 3.3 g/dL (2.5-4.5) 02/20/23 05:25 Albumin/Globulin Ratio 1.0 Ratio (1.1-2.1) L 02/20/23 05:25 Specimen Type Catherized urine 02/19/23 00:55 Urine Color Yellow (YELLOW) 02/19/23 00:55 Urine Appearance Clear (CLEAR) 02/19/23 00:55 Urine pH 5.0 (5.0 - 8.0) 02/19/23 00:55 Ur Specific [place] 1.020 (1.000-1.030) 02/19/23 00:55 Urine Protein 2+ (NEGATIVE) 02/19/23 00:55 Urine Glucose (UA) Negative (NEGATIVE) 02/19/23 00:55 Urine Ketones Negative (NEGATIVE) 02/19/23 00:55 Urine Blood 1+ (NEGATIVE) 02/19/23 00:55 Urine Nitrite Negative (NEGATIVE) 02/19/23 00:55 Urine Bilirubin Negative (NEGATIVE) 02/19/23 00:55 Urine Urobilinogen Normal (NORMAL) 02/19/23 00:55 Ur Leukocyte Esterase Negative (NEGATIVE) 02/19/23 00:55 Urine RBC 3-5 /HPF (0-3) A 02/19/23 00:55 Urine WBC None seen /HPF (0-5) 02/19/23 00:55 Ur Squamous Epith Cells Rare /HPF (NEGATIVE) 02/19/23 00:55 Urine Bacteria Negative /HPF (NEGATIVE) 02/19/23 00:55 Hyaline Casts Few /LPF (NEGATIVE) 02/19/23 00:55 Ur Culture Indicated? No/not indicated 02/19/23 00:55 Plan (1) Acute exacerbation of CHF (congestive heart failure): Status: Acute (2) Acute respiratory failure: Status: Acute (3) Altered mental status: Status: Acute (4) Acute hyperkalemia: Status: Acute Plan: Monitor at this time. (5) Pneumonia: Status: Acute (6) Edema: Status: Acute Qualifiers: Edema type: unspecified Qualified Code(s): R60.9 - Edema, unspecified (7) CELSA (acute kidney injury): Status: Acute (8) Insomnia: Status: Acute
[2023-02-20] MEDS: ELAVIL PO SCH (21:11)
[2023-02-20] MEDS: SNACK - Diabetic Appropriate PO SCH (21:32)
[2023-02-21] MEDS: NS 1,000 ML IV 1,000 ML IV SCH ×3 (02:00→22:45)
[2023-02-21] MEDS: RESTORIL CAP 15 MG PO PRN (02:16)
[2023-02-21] MEDS: ROBITUSSIN (PLAIN) PO PRN (02:16)
[2023-02-21] MEDS: NEURONTIN CAP 400 MG PO SCH ×3 (05:40→21:18)
[2023-02-21 06:18] LABS: BASOPHILS % (AUTO) 0.1 % (0.2-1.0); HEMATOCRIT 29.9 % (36.0-47.0); HEMOGLOBIN 10.3 g/dL (12.0-16.0); LYMPHOCYTES # (AUTO) 0.9 X10^3/uL (1.3-2.9); LYMPHOCYTES % (AUTO) 12.9 % (21.0-51.0); MEAN CORPUSCULAR HEMOGLOBIN 30.6 pg (27.0-34.0); MEAN CORPUSCULAR HGB CONC 34.3 g/dL (33.0-35.0); MEAN CORPUSCULAR VOLUME 89.4 fL (80.0-100.0); MEAN PLATELET VOLUME 8.5 fL (7.4-11.0); MONOCYTES # (AUTO) 0.7 x10^3/uL (0.3-0.8); MONOCYTES % (AUTO) 10.1 % (0.0-13.0); NEUTROPHILS # (AUTO) 5.3 x10^3/uL (2.2-4.8); NEUTROPHILS % (AUTO) 76.9 % (42.0-75.0); PLATELET COUNT 123 X10^3/uL (150.0-450.0); RED BLOOD COUNT 3.35 X10^6/uL (3.5-5.4); RED CELL DISTRIBUTION WIDTH 15.3 % (11.6-16.5); WHITE BLOOD COUNT 6.9 X10^3/uL (3.6-10.0)
--- NOTE | 2023-02-21 06:41 | RAD ---
HISTORYFollow-up pneumoniaSTUDYChest AP [id number]/20/2023FINDINGSHear t remains enlarged. No congestive heart failure is noted. Aorta is calcified. Irma appear normal. Improving right basilar lung infiltrate is present. There is improved aeration of the left lower lobe with visualization of the left hemidiaphragm now present. Remainder of the lung gonzalez are clear. Small right pleural effusion may be present.IMPRESSIONImproving right basilar lung infiltrateLeft lung base now appears clearSuspect small right pleural effusionNo change cardiomegaly without congestive heart failureElectronically signed by: KUMAR BHANDARI (Feb 21, 2023 06:40:07)
[2023-02-21 06:43] LABS: ALBUMIN 3.3 g/dL (3.4-5.0); CALCIUM 8.1 mg/dL (8.5-10.1); CARBON DIOXIDE 24.3 mmol/L (21-32); COR CA(FOR HYPOALB) 8.7 mg/dL (8.5-10.1); CREATININE 1.9 mg/dL (0.55-1.02); POTASSIUM 5.2 mmol/L (3.5-5.1); TOTAL PROTEIN 6.9 g/dL (6.4-8.2)
[2023-02-21] MEDS: XOPENEX 1.25 MG/3 ML NEBULE NEB SCH ×4 (08:51→20:45)
[2023-02-21] MEDS: LASIX IVP SCH (09:34)
[2023-02-21] MEDS: CLARITIN PO SCH (09:34)
[2023-02-21] MEDS: NORVASC TAB 10 MG PO SCH (09:34)
[2023-02-21] MEDS: ENTRESTO 24/26 MG TABLET PO SCH ×2 (09:34→20:40)
[2023-02-21] MEDS: LEVAQUIN PREMIX IV 500 MG 500 MG/100 ML BAG IV SCH (09:34)
[2023-02-21] MEDS: PAXIL PO SCH (09:34)
[2023-02-21] MEDS: GLUCOTROL PO SCH (09:34)
[2023-02-21] MEDS: LOVENOX INJ 30 MG SYR SC SCH (09:40)
[2023-02-21] MEDS: NORCO 5/325 MG TAB PO PRN ×2 (13:35→20:43)
--- NOTE | 2023-02-21 16:07 | PCM.PROG ---
Progress Note Progress Note for Day of Date of Exam: 02/21/23 Subjective Subjective: Pt is a 62 year old female that is a hospice patient for CHF admitted for acute CHF exacerbation, altered mental status due to polypharmacy, acute respiratory failure, and acute kidney injury. This morning patient reports improvement in her symptoms and respiration. No acute events overnight. Labs/imaging: Wbc 6.9, Hgb 10.3, Plt 123, Na 135, K 5.2, Creatinine 1.90, Glucose 160, Blood cultures no growth to date. CXR this morning was obtained that revealed: Improving right basilar lung infiltrate. Left lung base now appears clear. Suspect small right pleural effusion. No change cardiomegaly without congestive heart failure. Plan: Wean O2 as tolerated to keep sats > 92%. Continue with IV Lasix 40 mg twice daily, monitor I/Os. Continue telemetry and IV antibiotics to Levaquin for pneumonia. Home medications have been resumed. AIT respiratory panel positive for Haemophilus influenzae susceptible to Levaquin. Pt is improving. Otherwise, will continue with current treatment plan. Continue to closely monitor and follow up labs/imaging in the morning. Time spent for clinical assessment, reviewing labs/imaging, physical exam, decision making and documentation greater than 45 mins. Past Medical Family Social History Allergies: Allergies No Known Drug Allergies Allergy (Unknown, Unverified 02/14/20 13:34) Onset Date: 02/14/2020 Review of Systems ROS changes noted: see HPI Vital Signs and I&O's Vital Signs: Vital Signs Temperature 97.5 F Pulse Rate [Left] 84 Pulse Rate 81 Respiratory Rate 18 Respiratory Rate 28 Respiratory Rate 18 Blood Pressure [Right Arm] 106/62 O2 Sat by Pulse Oximetry 96 O2 Sat by Pulse Oximetry 97 Intake and Output: Intake & Output 02/18/23 02/19/23 02/20/23 02/21/23 23:59 23:59 23:59 23:59 Intake Total 1646 / 1646 1963 / Output Total 1650 / 1650 Balance -4 / -4 1963 Physical Exam Oriented: Normal Eyes: Normal Ear: Normal Nose: Normal Throat: Normal Respiratory: Diminished and Rhonchi Cardiovascular: Normal : Normal Auscultation: Bowel Sounds: Normal Tenderness: Normal Skin: Normal Musculoskeletal: Normal Psychiatric: Normal Mood Description: Calm Affect: Normal Speech Pattern: Clear and Inappropriate Laboratory and Diagnostics 02/21/23 06:05 02/21/23 06:05 Labs: 02/19/23 01:48 Blood Blood Culture - Preliminary 02/19/23 01:40 Blood Blood Culture - Preliminary Laboratory WBC 6.9 X10^3/uL (3.6-10.0) 02/21/23 06:05 RBC 3.35 X10^6/uL (3.5-5.4) L 02/21/23 06:05 Hgb 10.3 g/dL (12.0-16.0) L 02/21/23 06:05 Hct 29.9 % (36.0-47.0) L 02/21/23 06:05 MCV 89.4 fL (80.0-100.0) 02/21/23 06:05 MCH 30.6 pg (27.0-34.0) 02/21/23 06:05 MCHC 34.3 g/dL (33.0-35.0) 02/21/23 06:05 RDW 15.3 % (11.6-16.5) 02/21/23 06:05 Plt Count 123 X10^3/uL (150.0-450.0) L 02/21/23 06:05 MPV 8.5 fL (7.4-11.0) 02/21/23 06:05 Neut % (Auto) 76.9 % (42.0-75.0) H 02/21/23 06:05 Lymph % (Auto) 12.9 % (21.0-51.0) L 02/21/23 06:05 [place] % (Auto) 10.1 % (0.0-13.0) 02/21/23 06:05 Eos % (Auto) 0.0 % (0.9-2.9) L 02/21/23 06:05 Baso % (Auto) 0.1 % (0.2-1.0) L 02/21/23 06:05 Neut # (Auto) 5.3 x10^3/uL (2.2-4.8) H 02/21/23 06:05 Lymph # (Auto) 0.9 X10^3/uL (1.3-2.9) L 02/21/23 06:05 [place] # (Auto) 0.7 x10^3/uL (0.3-0.8) 02/21/23 06:05 Eos # (Auto) 0.0 x10^3/uL (0.0-0.2) 02/21/23 06:05 Baso # (Auto) 0.0 X10^3/uL (0.0-0.1) 02/21/23 06:05 Absolute Nucleated RBC 0.2 /100WBC 02/21/23 06:05 Sodium 135 mmol/L (136-145) L 02/21/23 06:05 Corrected Sodium 136 mmol/L (136-145) 02/21/23 06:05 Potassium 5.2 mmol/L (3.5-5.1) H 02/21/23 06:05 Chloride 102 mmol/L (98-107) 02/21/23 06:05 Carbon Dioxide 24.3 mmol/L (21-32) 02/21/23 06:05 BUN 47 mg/dL (7-18) H 02/21/23 06:05 Creatinine 1.90 mg/dL (0.55-1.02) H 02/21/23 06:05 Est GFR (MDRD) Af Amer 35 (>60) L 02/21/23 06:05 Est GFR (MDRD) Non-Af 29 (>60) L 02/21/23 06:05 Glucose 160 mg/dL (65-99) H 02/21/23 06:05 Calcium 8.1 mg/dL (8.5-10.1) L 02/21/23 06:05 Corrected Calcium 8.7 mg/dL (8.5-10.1) 02/21/23 06:05 Total Bilirubin 0.60 mg/dL (0.2-1.0) 02/21/23 06:05 AST 58 Units/L (15-37) H 02/21/23 06:05 ALT 13 Units/L (12-78) 02/21/23 06:05 Alkaline Phosphatase 82 Units/L (46-116) 02/21/23 06:05 Total Protein 6.9 g/dL (6.4-8.2) 02/21/23 06:05 Albumin 3.3 g/dL (3.4-5.0) L 02/21/23 06:05 Globulin 3.6 g/dL (2.5-4.5) 02/21/23 06:05 Albumin/Globulin Ratio 0.9 Ratio (1.1-2.1) L 02/21/23 06:05 Specimen Type Catherized urine 02/19/23 00:55 Urine Color Yellow (YELLOW) 02/19/23 00:55 Urine Appearance Clear (CLEAR) 02/19/23 00:55 Urine pH 5.0 (5.0 - 8.0) 02/19/23 00:55 Ur Specific [place] 1.020 (1.000-1.030) 02/19/23 00:55 Urine Protein 2+ (NEGATIVE) 02/19/23 00:55 Urine Glucose (UA) Negative (NEGATIVE) 02/19/23 00:55 Urine Ketones Negative (NEGATIVE) 02/19/23 00:55 Urine Blood 1+ (NEGATIVE) 02/19/23 00:55 Urine Nitrite Negative (NEGATIVE) 02/19/23 00:55 Urine Bilirubin Negative (NEGATIVE) 02/19/23 00:55 Urine Urobilinogen Normal (NORMAL) 02/19/23 00:55 Ur Leukocyte Esterase Negative (NEGATIVE) 02/19/23 00:55 Urine RBC 3-5 /HPF (0-3) A 02/19/23 00:55 Urine WBC None seen /HPF (0-5) 02/19/23 00:55 Ur Squamous Epith Cells Rare /HPF (NEGATIVE) 02/19/23 00:55 Urine Bacteria Negative /HPF (NEGATIVE) 02/19/23 00:55 Hyaline Casts Few /LPF (NEGATIVE) 02/19/23 00:55 Ur Culture Indicated? No/not indicated 02/19/23 00:55 Resp Viral Panel (PCR) See scanned report 02/19/23 17:25 Plan (1) Acute exacerbation of CHF (congestive heart failure): Status: Acute (2) Acute respiratory failure: Status: Acute (3) Altered mental status: Status: Acute (4) Acute hyperkalemia: Status: Acute Plan: Monitor at this time. (5) Pneumonia: Status: Acute (6) Edema: Status: Acute Qualifiers: Edema type: unspecified Qualified Code(s): R60.9 - Edema, unspecified (7) CELSA (acute kidney injury): Status: Acute (8) Insomnia: Status: Acute
[2023-02-21] MEDS: ELAVIL PO SCH (20:40)
[2023-02-21] MEDS: SNACK - Diabetic Appropriate PO SCH (20:40)
[2023-02-22] MEDS: LASIX IVP SCH ×3 (01:23→20:24)
[2023-02-22] MEDS: NEURONTIN CAP 400 MG PO SCH (05:16)
[2023-02-22] MEDS: NS 1,000 ML IV 1,000 ML IV SCH ×2 (05:18→20:25)
[2023-02-22] MEDS: NORCO 5/325 MG TAB PO PRN ×2 (05:36→22:45)
[2023-02-22 06:42] LABS: BASOPHILS % (AUTO) 0.2 % (0.2-1.0); HEMATOCRIT 30.8 % (36.0-47.0); HEMOGLOBIN 10.4 g/dL (12.0-16.0); LYMPHOCYTES # (AUTO) 0.9 X10^3/uL (1.3-2.9); LYMPHOCYTES % (AUTO) 18.4 % (21.0-51.0); MEAN CORPUSCULAR HEMOGLOBIN 30.4 pg (27.0-34.0); MEAN CORPUSCULAR HGB CONC 33.7 g/dL (33.0-35.0); MEAN CORPUSCULAR VOLUME 90.2 fL (80.0-100.0); MEAN PLATELET VOLUME 8.8 fL (7.4-11.0); MONOCYTES # (AUTO) 0.6 x10^3/uL (0.3-0.8); MONOCYTES % (AUTO) 11.5 % (0.0-13.0); NEUTROPHILS # (AUTO) 3.4 x10^3/uL (2.2-4.8); NEUTROPHILS % (AUTO) 69.9 % (42.0-75.0); PLATELET COUNT 118 X10^3/uL (150.0-450.0); RED BLOOD COUNT 3.41 X10^6/uL (3.5-5.4); RED CELL DISTRIBUTION WIDTH 15.8 % (11.6-16.5); WHITE BLOOD COUNT 4.8 X10^3/uL (3.6-10.0)
[2023-02-22 07:09] LABS: ALANINE AMINOTRANSFERASE 11 Units/L (12-78); ALBUMIN 2.8 g/dL (3.4-5.0); ALKALINE PHOSPHATASE 73 Units/L (46-116); ASPARTATE AMINO TRANSFERASE 51 Units/L (15-37); BLOOD UREA NITROGEN 51 mg/dL (7-18); CARBON DIOXIDE 26.7 mmol/L (21-32); CHLORIDE 103 mmol/L (98-107); CREATININE 1.88 mg/dL (0.55-1.02); GLUCOSE 109 mg/dL (65-99); POTASSIUM 4.5 mmol/L (3.5-5.1); SODIUM 137 mmol/L (136-145); TOTAL PROTEIN 6.3 g/dL (6.4-8.2); eGFR NON BLACK RACES 29 (>60)
[2023-02-22] MEDS: LOVENOX INJ 30 MG SYR SC SCH (09:10)
[2023-02-22] MEDS: NORVASC TAB 10 MG PO SCH (09:11)
[2023-02-22] MEDS: LEVAQUIN PREMIX IV 500 MG 500 MG/100 ML BAG IV SCH (09:11)
[2023-02-22] MEDS: ENTRESTO 24/26 MG TABLET PO SCH ×2 (09:11→20:24)
[2023-02-22] MEDS: CLARITIN PO SCH (09:11)
[2023-02-22] MEDS: GLUCOTROL PO SCH (09:11)
[2023-02-22] MEDS: PAXIL PO SCH (09:18)
[2023-02-22] MEDS: XOPENEX 1.25 MG/3 ML NEBULE NEB SCH ×4 (09:21→21:25)
[2023-02-22] MEDS: FLONASE NASAL SPRAY ENOSTRIL SCH (11:00)
[2023-02-22] MEDS: NEURONTIN CAP 300 MG PO SCH ×2 (13:20→21:48)
--- NOTE | 2023-02-22 13:49 | PCM.PROG ---
Progress Note Progress Note for Day of Date of Exam: 02/22/23 Subjective Subjective: Pt is a 62 year old female that is a hospice patient for CHF admitted for acute CHF exacerbation, altered mental status due to polypharmacy, acute respiratory failure, and acute kidney injury. This morning is resting in bed. She is requiring oxy mask at 15L. No acute events overnight. Labs/imaging: Wbc 4.8, Hgb 10.4, Plt 118, Na 137, K 4.5, Creatinine 1.88, Glucose 109, Blood cultures no growth to date. Plan: Plan to wean O2 as tolerated to keep sats > 92%. Continue with IV Lasix 40 mg twice daily, monitor I/Os. Continue telemetry and IV antibiotics to Levaquin for pneumonia. Home medications have been resumed. AIT respiratory panel positive for Haemophilus influenzae susceptible to Levaquin. Pt continues to slowly improve. Otherwise, will continue with current treatment plan. Continue to closely monitor and follow up labs/imaging in the morning. Time spent for clinical assessment, reviewing labs/imaging, physical exam, decision making and documentation greater than 45 mins. Past Medical Family Social History Allergies: Allergies No Known Drug Allergies Allergy (Unknown, Unverified 02/14/20 13:34) Onset Date: 02/14/2020 Review of Systems ROS changes noted: see HPI Vital Signs and I&O's Vital Signs: Vital Signs Temperature 97.7 F Pulse Rate [Left] 81 Pulse Rate 84 Respiratory Rate 26 Respiratory Rate 20 Blood Pressure [Right Arm] 118/56 O2 Sat by Pulse Oximetry 92 O2 Sat by Pulse Oximetry 96 Intake and Output: Intake & Output 02/19/23 02/20/23 02/21/23 02/22/23 23:59 23:59 23:59 23:59 Intake Total 1646 / 1646 1963 874 / 874 611 / 611 Output Total 1650 / 1650 Balance -4 / -4 1963 874 / 874 61 / 611 Physical Exam Oriented: Normal Eyes: Normal Ear: Normal Nose: Normal Throat: Normal Respiratory: Diminished and Rhonchi Cardiovascular: Normal : Normal Auscultation: Bowel Sounds: Normal Tenderness: Normal Skin: Normal Musculoskeletal: Normal Psychiatric: Normal Mood Description: Calm Affect: Normal Speech Pattern: Clear and Inappropriate Laboratory and Diagnostics 02/22/23 05:45 02/22/23 05:45 Labs: 02/19/23 01:48 Blood Blood Culture - Preliminary 02/19/23 01:40 Blood Blood Culture - Preliminary Laboratory WBC 4.8 X10^3/uL (3.6-10.0) 02/22/23 05:45 RBC 3.41 X10^6/uL (3.5-5.4) L 02/22/23 05:45 Hgb 10.4 g/dL (12.0-16.0) L 02/22/23 05:45 Hct 30.8 % (36.0-47.0) L 02/22/23 05:45 MCV 90.2 fL (80.0-100.0) 02/22/23 05:45 MCH 30.4 pg (27.0-34.0) 02/22/23 05:45 MCHC 33.7 g/dL (33.0-35.0) 02/22/23 05:45 RDW 15.8 % (11.6-16.5) 02/22/23 05:45 Plt Count 118 X10^3/uL (150.0-450.0) L 02/22/23 05:45 MPV 8.8 fL (7.4-11.0) 02/22/23 05:45 Neut % (Auto) 69.9 % (42.0-75.0) 02/22/23 05:45 Lymph % (Auto) 18.4 % (21.0-51.0) L 02/22/23 05:45 [place] % (Auto) 11.5 % (0.0-13.0) 02/22/23 05:45 Eos % (Auto) 0.0 % (0.9-2.9) L 02/22/23 05:45 Baso % (Auto) 0.2 % (0.2-1.0) 02/22/23 05:45 Neut # (Auto) 3.4 x10^3/uL (2.2-4.8) 02/22/23 05:45 Lymph # (Auto) 0.9 X10^3/uL (1.3-2.9) L 02/22/23 05:45 [place] # (Auto) 0.6 x10^3/uL (0.3-0.8) 02/22/23 05:45 Eos # (Auto) 0.0 x10^3/uL (0.0-0.2) 02/22/23 05:45 Baso # (Auto) 0.0 X10^3/uL (0.0-0.1) 02/22/23 05:45 Absolute Nucleated RBC 0.3 /100WBC 02/22/23 05:45 Sodium 137 mmol/L (136-145) 02/22/23 05:45 Corrected Sodium TNP 02/22/23 05:45 Potassium 4.5 mmol/L (3.5-5.1) 02/22/23 05:45 Chloride 103 mmol/L (98-107) 02/22/23 05:45 Carbon Dioxide 26.7 mmol/L (21-32) 02/22/23 05:45 BUN 51 mg/dL (7-18) H 02/22/23 05:45 Creatinine 1.88 mg/dL (0.55-1.02) H 02/22/23 05:45 Est GFR (MDRD) Af Amer 35 (>60) L 02/22/23 05:45 Est GFR (MDRD) Non-Af 29 (>60) L 02/22/23 05:45 Glucose 109 mg/dL (65-99) H 02/22/23 05:45 Calcium 8.0 mg/dL (8.5-10.1) L 02/22/23 05:45 Corrected Calcium 9.0 mg/dL (8.5-10.1) 02/22/23 05:45 Total Bilirubin 0.50 mg/dL (0.2-1.0) 02/22/23 05:45 AST 51 Units/L (15-37) H 02/22/23 05:45 ALT 11 Units/L (12-78) L 02/22/23 05:45 Alkaline Phosphatase 73 Units/L (46-116) 02/22/23 05:45 Total Protein 6.3 g/dL (6.4-8.2) L 02/22/23 05:45 Albumin 2.8 g/dL (3.4-5.0) L 02/22/23 05:45 Globulin 3.5 g/dL (2.5-4.5) 02/22/23 05:45 Albumin/Globulin Ratio 0.8 Ratio (1.1-2.1) L 02/22/23 05:45 Specimen Type Catherized urine 02/19/23 00:55 Urine Color Yellow (YELLOW) 02/19/23 00:55 Urine Appearance Clear (CLEAR) 02/19/23 00:55 Urine pH 5.0 (5.0 - 8.0) 02/19/23 00:55 Ur Specific [place] 1.020 (1.000-1.030) 02/19/23 00:55 Urine Protein 2+ (NEGATIVE) 02/19/23 00:55 Urine Glucose (UA) Negative (NEGATIVE) 02/19/23 00:55 Urine Ketones Negative (NEGATIVE) 02/19/23 00:55 Urine Blood 1+ (NEGATIVE) 02/19/23 00:55 Urine Nitrite Negative (NEGATIVE) 02/19/23 00:55 Urine Bilirubin Negative (NEGATIVE) 02/19/23 00:55 Urine Urobilinogen Normal (NORMAL) 02/19/23 00:55 Ur Leukocyte Esterase Negative (NEGATIVE) 02/19/23 00:55 Urine RBC 3-5 /HPF (0-3) A 02/19/23 00:55 Urine WBC None seen /HPF (0-5) 02/19/23 00:55 Ur Squamous Epith Cells Rare /HPF (NEGATIVE) 02/19/23 00:55 Urine Bacteria Negative /HPF (NEGATIVE) 02/19/23 00:55 Hyaline Casts Few /LPF (NEGATIVE) 02/19/23 00:55 Ur Culture Indicated? No/not indicated 02/19/23 00:55 Resp Viral Panel (PCR) See scanned report 02/19/23 17:25 Plan (1) Acute exacerbation of CHF (congestive heart failure): Status: Acute (2) Acute respiratory failure: Status: Acute (3) Altered mental status: Status: Acute (4) Acute hyperkalemia: Status: Acute Plan: Monitor at this time. (5) Pneumonia: Status: Acute (6) Edema: Status: Acute Qualifiers: Edema type: unspecified Qualified Code(s): R60.9 - Edema, unspecified (7) CELSA (acute kidney injury): Status: Acute (8) Insomnia: Status: Acute
[2023-02-22] MEDS: ELAVIL PO SCH (20:24)
[2023-02-22] MEDS: SNACK - Diabetic Appropriate PO SCH (20:24)
[2023-02-22] MEDS: RESTORIL CAP 15 MG PO PRN (20:25)
[2023-02-23] MEDS: NORCO 5/325 MG TAB PO PRN ×3 (04:38→21:20)
[2023-02-23] MEDS: NEURONTIN CAP 300 MG PO SCH ×3 (05:15→21:15)
--- NOTE | 2023-02-23 05:34 | RAD ---
HISTORYPNEUMONIA F/USTUDYCHEST, 1 [id number]/2023FINDINGSThe cardiomediastinal silhouette is stable. Similar right basilar opacities. No pneumothorax. The bony thorax appears intact.IMPRESSIONSimilar right basilar opacities.Electronically signed by: KUMAR BHANDARI (Feb 23, 2023 05:33:03)
[2023-02-23 06:26] LABS: BASOPHILS % (AUTO) 0.1 % (0.2-1.0); HEMOGLOBIN 10.1 g/dL (12.0-16.0); LYMPHOCYTES # (AUTO) 0.9 X10^3/uL (1.3-2.9); LYMPHOCYTES % (AUTO) 24.2 % (21.0-51.0); MEAN CORPUSCULAR HEMOGLOBIN 30.1 pg (27.0-34.0); MEAN CORPUSCULAR HGB CONC 33.7 g/dL (33.0-35.0); MEAN CORPUSCULAR VOLUME 89.4 fL (80.0-100.0); MEAN PLATELET VOLUME 8.6 fL (7.4-11.0); MONOCYTES # (AUTO) 0.5 x10^3/uL (0.3-0.8); MONOCYTES % (AUTO) 13.3 % (0.0-13.0); NEUTROPHILS # (AUTO) 2.2 x10^3/uL (2.2-4.8); NEUTROPHILS % (AUTO) 62.4 % (42.0-75.0); PLATELET COUNT 116 X10^3/uL (150.0-450.0); RED BLOOD COUNT 3.35 X10^6/uL (3.5-5.4); RED CELL DISTRIBUTION WIDTH 15.4 % (11.6-16.5); WHITE BLOOD COUNT 3.5 X10^3/uL (3.6-10.0)
[2023-02-23 06:37] LABS: ALBUMIN 2.6 g/dL (3.4-5.0); CALCIUM 7.5 mg/dL (8.5-10.1); CARBON DIOXIDE 26.4 mmol/L (21-32); COR CA(FOR HYPOALB) 8.6 mg/dL (8.5-10.1); CREATININE 1.78 mg/dL (0.55-1.02); POTASSIUM 4.2 mmol/L (3.5-5.1); TOTAL PROTEIN 6.2 g/dL (6.4-8.2)
[2023-02-23] MEDS: XOPENEX 1.25 MG/3 ML NEBULE NEB SCH ×5 (08:21→20:20)
[2023-02-23] MEDS: LASIX IVP SCH ×3 (09:18→21:50)
[2023-02-23] MEDS: ENTRESTO 24/26 MG TABLET PO SCH ×2 (09:18→21:15)
[2023-02-23] MEDS: CLARITIN PO SCH (09:19)
[2023-02-23] MEDS: LEVAQUIN PREMIX IV 250 MG 250 MG/50 ML BAG IV SCH (09:19)
[2023-02-23] MEDS: NORVASC TAB 10 MG PO SCH (09:19)
[2023-02-23] MEDS: PAXIL PO SCH (09:19)
[2023-02-23] MEDS: GLUCOTROL PO SCH (09:19)
[2023-02-23] MEDS: LOVENOX INJ 30 MG SYR SC SCH (09:19)
[2023-02-23] MEDS: FLONASE NASAL SPRAY ENOSTRIL SCH (09:20)
[2023-02-23] MEDS: NS 1,000 ML IV 1,000 ML IV SCH (17:16)
[2023-02-23] MEDS: SNACK - Diabetic Appropriate PO SCH (19:50)
[2023-02-23] MEDS: ELAVIL PO SCH (21:15)
[2023-02-23] MEDS: RESTORIL CAP 15 MG PO PRN (21:19)
[2023-02-24] MEDS: NS 1,000 ML IV 1,000 ML IV SCH
[2023-02-24] MEDS: NEURONTIN CAP 300 MG PO SCH (05:03)
[2023-02-24] MEDS: NORCO 5/325 MG TAB PO PRN (05:04)
[2023-02-24 06:20] LABS: BASOPHILS % (AUTO) 0.2 % (0.2-1.0); HEMATOCRIT 32.2 % (36.0-47.0); HEMOGLOBIN 10.8 g/dL (12.0-16.0); LYMPHOCYTES # (AUTO) 0.8 X10^3/uL (1.3-2.9); LYMPHOCYTES % (AUTO) 20.5 % (21.0-51.0); MEAN CORPUSCULAR HGB CONC 33.5 g/dL (33.0-35.0); MEAN CORPUSCULAR VOLUME 89.5 fL (80.0-100.0); MEAN PLATELET VOLUME 8.7 fL (7.4-11.0); MONOCYTES # (AUTO) 0.4 x10^3/uL (0.3-0.8); MONOCYTES % (AUTO) 10.9 % (0.0-13.0); NEUTROPHILS # (AUTO) 2.8 x10^3/uL (2.2-4.8); NEUTROPHILS % (AUTO) 68.4 % (42.0-75.0); PLATELET COUNT 140 X10^3/uL (150.0-450.0); RED CELL DISTRIBUTION WIDTH 15.3 % (11.6-16.5); WHITE BLOOD COUNT 4.1 X10^3/uL (3.6-10.0)
[2023-02-24 06:52] LABS: ALBUMIN 2.8 g/dL (3.4-5.0); CALCIUM 7.9 mg/dL (8.5-10.1); CARBON DIOXIDE 27.1 mmol/L (21-32); COR CA(FOR HYPOALB) 8.9 mg/dL (8.5-10.1); CREATININE 1.44 mg/dL (0.55-1.02); POTASSIUM 4.3 mmol/L (3.5-5.1); TOTAL PROTEIN 6.6 g/dL (6.4-8.2)
[2023-02-24 08:19] VITALS: BP 119/70; RESP 18; TEMP 97.4; O2SAT 98
[2023-02-24] MEDS: LEVAQUIN PREMIX IV 250 MG 250 MG/50 ML BAG IV SCH (08:30)
[2023-02-24] MEDS: LOVENOX INJ 30 MG SYR SC SCH (08:31)
[2023-02-24] MEDS: LASIX IVP SCH (08:31)
[2023-02-24] MEDS: PAXIL PO SCH (08:31)
[2023-02-24] MEDS: NORVASC TAB 10 MG PO SCH (08:31)
[2023-02-24] MEDS: ENTRESTO 24/26 MG TABLET PO SCH (08:32)
[2023-02-24] MEDS: CLARITIN PO SCH (08:32)
[2023-02-24] MEDS: GLUCOTROL PO SCH (08:32)
[2023-02-24] MEDS: XOPENEX 1.25 MG/3 ML NEBULE NEB SCH (08:41)
[2023-02-24] MEDS: FLONASE NASAL SPRAY ENOSTRIL SCH (08:41)
[2023-02-24 08:44] VITALS: PULSE 77
--- NOTE | 2023-02-24 11:01 | PCM.PROG ---
Progress Note Progress Note for Day of Date of Exam: 02/23/23 Subjective Subjective: Pt is a 62 year old female that is a hospice patient for CHF admitted for acute CHF exacerbation, altered mental status due to polypharmacy, acute respiratory failure, and acute kidney injury. This morning she reports feeling better. She was able to be weaned down to nasal cannula supplemental oxygen that is close to her baseline. No acute events overnight. Labs/imaging: Wbc 3.5, Hgb 10.1, Plt 116, Na 137, K 4.2, Creatinine 1.78, Glucose 115, Blood cultures no growth to date. Plan: Plan to wean O2 as tolerated to keep sats > 92%. Continue with IV Lasix 40 mg twice daily, monitor I/Os. Continue telemetry and IV antibiotics to Levaquin for pneumonia. Home medications have been resumed. AIT respiratory panel positive for Haemophilus influenzae susceptible to Levaquin. Pt has sig nificantly improved. Otherwise, will continue with current treatment plan. Continue to closely monitor and follow up labs/imaging in the morning. Past Medical Family Social History Allergies: Allergies No Known Drug Allergies Allergy (Unknown, Unverified 02/14/20 13:34) Onset Date: 02/14/2020 Review of Systems ROS changes noted: see HPI Vital Signs and I&O's Vital Signs: Vital Signs Temperature 97.4 F Temperature 98.1 F Pulse Rate [Left] 81 Pulse Rate [Left] 85 Pulse Rate 77 Respiratory Rate 18 Respiratory Rate 18 Respiratory Rate 20 Respiratory Rate 24 Respiratory Rate 26 Blood Pressure [Right Arm] 119/70 Blood Pressure [Right Arm] 113/72 O2 Sat by Pulse Oximetry 98 O2 Sat by Pulse Oximetry 98 O2 Sat by Pulse Oximetry 95 Intake and Output: Intake & Output 02/21/23 02/22/23 02/23/23 02/24/23 23:59 23:59 23:59 23:59 Intake Total 874 / 874 2361 / 2361 1346 / 1346 360 / 360 Balance 874 / 874 2361 / 2361 1346 / 1346 360 / 360 Physical Exam Oriented: Normal Eyes: Normal Ear: Normal Nose: Normal Throat: Normal Respiratory: Diminished Cardiovascular: Normal : Normal Auscultation: Bowel Sounds: Normal Tenderness: Normal Skin: Normal Musculoskeletal: Normal Psychiatric: Normal Mood Description: Calm Affect: Normal Speech Pattern: Clear Laboratory and Diagnostics 02/24/23 05:20 02/24/23 05:20 Labs: 02/19/23 01:48 Blood Blood Culture - Preliminary 02/19/23 01:40 Blood Blood Culture - Preliminary Laboratory WBC 4.1 X10^3/uL (3.6-10.0) 02/24/23 05:20 RBC 3.60 X10^6/uL (3.5-5.4) 02/24/23 05:20 Hgb 10.8 g/dL (12.0-16.0) L 02/24/23 05:20 Hct 32.2 % (36.0-47.0) L 02/24/23 05:20 MCV 89.5 fL (80.0-100.0) 02/24/23 05:20 MCH 30.0 pg (27.0-34.0) 02/24/23 05:20 MCHC 33.5 g/dL (33.0-35.0) 02/24/23 05:20 RDW 15.3 % (11.6-16.5) 02/24/23 05:20 Plt Count 140 X10^3/uL (150.0-450.0) L 02/24/23 05:20 MPV 8.7 fL (7.4-11.0) 02/24/23 05:20 Neut % (Auto) 68.4 % (42.0-75.0) 02/24/23 05:20 Lymph % (Auto) 20.5 % (21.0-51.0) L 02/24/23 05:20 [place] % (Auto) 10.9 % (0.0-13.0) 02/24/23 05:20 Eos % (Auto) 0.0 % (0.9-2.9) L 02/24/23 05:20 Baso % (Auto) 0.2 % (0.2-1.0) 02/24/23 05:20 Neut # (Auto) 2.8 x10^3/uL (2.2-4.8) 02/24/23 05:20 Lymph # (Auto) 0.8 X10^3/uL (1.3-2.9) L 02/24/23 05:20 [place] # (Auto) 0.4 x10^3/uL (0.3-0.8) 02/24/23 05:20 Eos # (Auto) 0.0 x10^3/uL (0.0-0.2) 02/24/23 05:20 Baso # (Auto) 0.0 X10^3/uL (0.0-0.1) 02/24/23 05:20 Absolute Nucleated RBC 0.1 /100WBC 02/24/23 05:20 Sodium 140 mmol/L (136-145) 02/24/23 05:20 Corrected Sodium 142 mmol/L (136-145) 02/24/23 05:20 Potassium 4.3 mmol/L (3.5-5.1) 02/24/23 05:20 Chloride 105 mmol/L (98-107) 02/24/23 05:20 Carbon Dioxide 27.1 mmol/L (21-32) 02/24/23 05:20 BUN 38 mg/dL (7-18) H 02/24/23 05:20 Creatinine 1.44 mg/dL (0.55-1.02) H 02/24/23 05:20 Est GFR (MDRD) Af Amer 48 (>60) L 02/24/23 05:20 Est GFR (MDRD) Non-Af 39 (>60) L 02/24/23 05:20 Glucose 183 mg/dL (65-99) H 02/24/23 05:20 Calcium 7.9 mg/dL (8.5-10.1) L 02/24/23 05:20 Corrected Calcium 8.9 mg/dL (8.5-10.1) 02/24/23 05:20 Total Bilirubin 0.30 mg/dL (0.2-1.0) 02/24/23 05:20 AST 27 Units/L (15-37) 02/24/23 05:20 ALT 14 Units/L (12-78) 02/24/23 05:20 Alkaline Phosphatase 78 Units/L (46-116) 02/24/23 05:20 Total Protein 6.6 g/dL (6.4-8.2) 02/24/23 05:20 Albumin 2.8 g/dL (3.4-5.0) L 02/24/23 05:20 Globulin 3.8 g/dL (2.5-4.5) 02/24/23 05:20 Albumin/Globulin Ratio 0.7 Ratio (1.1-2.1) L 02/24/23 05:20 Specimen Type Catherized urine 02/19/23 00:55 Urine Color Yellow (YELLOW) 02/19/23 00:55 Urine Appearance Clear (CLEAR) 02/19/23 00:55 Urine pH 5.0 (5.0 - 8.0) 02/19/23 00:55 Ur Specific [place] 1.020 (1.000-1.030) 02/19/23 00:55 Urine Protein 2+ (NEGATIVE) 02/19/23 00:55 Urine Glucose (UA) Negative (NEGATIVE) 02/19/23 00:55 Urine Ketones Negative (NEGATIVE) 02/19/23 00:55 Urine Blood 1+ (NEGATIVE) 02/19/23 00:55 Urine Nitrite Negative (NEGATIVE) 02/19/23 00:55 Urine Bilirubin Negative (NEGATIVE) 02/19/23 00:55 Urine Urobilinogen Normal (NORMAL) 02/19/23 00:55 Ur Leukocyte Esterase Negative (NEGATIVE) 02/19/23 00:55 Urine RBC 3-5 /HPF (0-3) A 02/19/23 00:55 Urine WBC None seen /HPF (0-5) 02/19/23 00:55 Ur Squamous Epith Cells Rare /HPF (NEGATIVE) 02/19/23 00:55 Urine Bacteria Negative /HPF (NEGATIVE) 02/19/23 00:55 Hyaline Casts Few /LPF (NEGATIVE) 02/19/23 00:55 Ur Culture Indicated? No/not indicated 02/19/23 00:55 Resp Viral Panel (PCR) See scanned report 02/19/23 17:25 Plan (1) Acute exacerbation of CHF (congestive heart failure): Status: Acute (2) Acute respiratory failure: Status: Acute (3) Altered mental status: Status: Acute (4) Acute hyperkalemia: Status: Acute Plan: Monitor at this time. (5) Pneumonia: Status: Acute (6) Edema: Status: Acute Qualifiers: Edema type: unspecified Qualified Code(s): R60.9 - Edema, unspecified (7) CELSA (acute kidney injury): Status: Acute (8) Insomnia: Status: Acute
--- NOTE | 2023-02-24 14:33 | W.DIS.FURT ---
Summary of Discharge Discharge Summary of Date Date of Exam: 02/24/23 Admission Date Date of Admission: 02/18/23 Admission Diagnosis Patient Problems (Updated 02/20/23 @ 19:50 by Jayce Woodruff) Altered mental status (Acute) R41.82 Renal insufficiency (Acute) N28.9 Hospital Course: Pt is a 62 year old female that is a hospice patient for CHF admitted for acute CHF exacerbation, altered mental status due to polypharmacy, acute respiratory failure, and acute kidney injury. Her hospital/treatment course included: Wean O2 as tolerated to keep sats > 92%, IV Lasix 40 mg twice daily, monitor I/Os. IV antibiotics Levaquin for pneumonia, AIT respiratory panel positive for Haemophilus influenzae susceptible to Levaquin. Pt responded well to treatments and symptoms resolved. O2 weaned down to baseline requirement at home. Rx levaquin. Pt instructed to take lasix 40mg BID. Pt discharged in stable condition back to home hospice. Vital Signs: Vital Signs (72 hours) 02/21/23 13:35 02/21/23 12:00 02/21/23 14:35 Temperature 97.5 F L Pulse Rate Pulse Rate [Left] 84 Respiratory Rate 18 28 H 20 Blood Pressure [Right Arm] 106/62 O2 Sat by Pulse Oximetry 96 Oxygen Delivery Method Oxy Mask Oxygen Flow Rate 15 FIO2% 02/21/23 16:00 02/21/23 20:43 02/21/23 20:00 Temperature 97.0 F L 98.7 F Pulse Rate Pulse Rate [Left] 70 72 Respiratory Rate 26 H 26 H 20 Blood Pressure [Right Arm] 88/56 85/46 O2 Sat by Pulse Oximetry 94 L 98 Oxygen Delivery Method Oxy Mask Oxy Mask Oxygen Flow Rate 15 15 FIO2% 02/21/23 19:00 02/21/23 21:43 02/21/23 21:15 Temperature Pulse Rate Pulse Rate [Left] Respiratory Rate 24 25 H Blood Pressure [Right Arm] 86/43 O2 Sat by Pulse Oximetry 95 Oxygen Delivery Method Oxy Mask Oxy Mask Oxygen Flow Rate 15 15 FIO2% 02/21/23 20:45 02/21/23 20:45 02/21/23 23:53 Temperature Pulse Rate 73 Pulse Rate [Left] Respiratory Rate Blood Pressure [Right Arm] 90/51 O2 Sat by Pulse Oximetry 95 94 L Oxygen Delivery Method Oxy Mask Oxy Mask Oxygen Flow Rate 15 15 FIO2% 81 02/22/23 00:00 02/22/23 04:00 02/22/23 05:36 Temperature 97.8 F 98.5 F Pulse Rate Pulse Rate [Left] 71 69 Respiratory Rate 23 20 22 Blood Pressure [Right Arm] 90/53 115/66 O2 Sat by Pulse Oximetry 94 L 99 Oxygen Delivery Method Oxy Mask Oxy Mask Oxygen Flow Rate 15 15 FIO2% 02/22/23 06:36 02/22/23 07:00 02/22/23 09:21 Temperature Pulse Rate Pulse Rate [Left] Respiratory Rate 20 Blood Pressure [Right Arm] O2 Sat by Pulse Oximetry Oxygen Delivery Method Oxy Mask Oxy Mask Oxygen Flow Rate 15 15 FIO2% 81 02/22/23 09:21 02/22/23 08:00 02/22/23 12:00 Temperature 97.7 F 98.1 F Pulse Rate 84 Pulse Rate [Left] 81 85 Respiratory Rate 26 H 24 Blood Pressure [Right Arm] 118/56 113/70 O2 Sat by Pulse Oximetry 92 L 96 92 L Oxygen Delivery Method Oxy Mask Oxy Mask Oxygen Flow Rate 15 15 FIO2% 02/22/23 16:43 02/22/23 16:00 02/22/23 20:00 Temperature 98.3 F 98.7 F Pulse Rate Pulse Rate [Left] 84 85 Respiratory Rate 20 20 Blood Pressure [Right Arm] 100/61 102/58 O2 Sat by Pulse Oximetry 91 L 93 L Oxygen Delivery Method Nasal Cannula Oxy Mask Nasal Cannula Oxygen Flow Rate 4 15 4 FIO2% 36 02/22/23 21:25 02/22/23 21:25 02/22/23 19:00 Temperature Pulse Rate 77 Pulse Rate [Left] Respiratory Rate Blood Pressure [Right Arm] O2 Sat by Pulse Oximetry 94 L Oxygen Delivery Method Nasal Cannula Nasal Cannula Oxygen Flow Rate 4 4 FIO2% 36 02/22/23 23:37 02/22/23 22:45 02/22/23 23:45 Temperature 97.6 F Pulse Rate Pulse Rate [Left] 82 Respiratory Rate 20 21 20 Blood Pressure [Right Arm] 116/63 O2 Sat by Pulse Oximetry 94 L Oxygen Delivery Method Nasal Cannula Oxygen Flow Rate 4 FIO2% 02/23/23 04:38 02/23/23 04:00 02/23/23 05:38 Temperature 97.8 F Pulse Rate Pulse Rate [Left] 84 Respiratory Rate 21 22 20 Blood Pressure [Right Arm] 107/55 O2 Sat by Pulse Oximetry 95 Oxygen Delivery Method Nasal Cannula Oxygen Flow Rate 4 FIO2% 02/23/23 06:55 02/23/23 08:45 02/23/23 08:21 Temperature Pulse Rate 78 Pulse Rate [Left] Respiratory Rate Blood Pressure [Right Arm] O2 Sat by Pulse Oximetry 96 Oxygen Delivery Method Nasal Cannula Nasal Cannula Oxygen Flow Rate 4 4 FIO2% 36 02/23/23 08:00 02/23/23 12:09 02/23/23 12:00 Temperature 97.8 F 97.6 F Pulse Rate Pulse Rate [Left] 79 80 Respiratory Rate 28 H 24 26 H Blood Pressure [Right Arm] 107/55 113/56 O2 Sat by Pulse Oximetry 95 95 Oxygen Delivery Method Nasal Cannula Nasal Cannula Oxygen Flow Rate 4 4 FIO2% 02/23/23 16:00 02/23/23 17:18 02/23/23 16:46 Temperature 97.1 F L Pulse Rate 76 Pulse Rate [Left] 76 Respiratory Rate 26 H 26 H Blood Pressure [Right Arm] 124/66 O2 Sat by Pulse Oximetry 97 Oxygen Delivery Method Nasal Cannula Oxygen Flow Rate 4 FIO2% 02/23/23 19:00 02/23/23 20:00 02/23/23 20:20 Temperature 98.2 F Pulse Rate Pulse Rate [Left] 80 Respiratory Rate 24 Blood Pressure [Right Arm] 129/62 O2 Sat by Pulse Oximetry 96 Oxygen Delivery Method Nasal Cannula Nasal Cannula Nasal Cannula Oxygen Flow Rate 3 3 4 FIO2% 36 02/23/23 20:20 02/23/23 21:20 02/23/23 22:20 Temperature Pulse Rate 77 Pulse Rate [Left] Respiratory Rate 22 24 Blood Pressure [Right Arm] O2 Sat by Pulse Oximetry 94 L Oxygen Delivery Method Oxygen Flow Rate FIO2% 02/23/23 23:44 02/24/23 04:00 02/24/23 05:04 Temperature 98.1 F 98.1 F Pulse Rate Pulse Rate [Left] 82 85 Respiratory Rate 24 26 H 24 Blood Pressure [Right Arm] 148/67 113/72 O2 Sat by Pulse Oximetry 97 95 Oxygen Delivery Method Nasal Cannula Nasal Cannula Oxygen Flow Rate 3 3 FIO2% 02/24/23 06:03 02/24/23 07:00 02/24/23 08:00 Temperature 97.4 F L Pulse Rate Pulse Rate [Left] 81 Respiratory Rate 20 18 Blood Pressure [Right Arm] 119/70 O2 Sat by Pulse Oximetry 98 Oxygen Delivery Method Nasal Cannula Nasal Cannula Oxygen Flow Rate 3 3 FIO2% 02/24/23 08:43 02/24/23 08:44 Temperature Pulse Rate 77 Pulse Rate [Left] Respiratory Rate 18 Blood Pressure [Right Arm] O2 Sat by Pulse Oximetry 98 Oxygen Delivery Method Nasal Cannula Oxygen Flow Rate 3 FIO2% 36 Labs: Laboratory Last Values WBC 4.1 X10^3/uL (3.6-10.0) 02/24/23 05:20 RBC 3.60 X10^6/uL (3.5-5.4) 02/24/23 05:20 Hgb 10.8 g/dL (12.0-16.0) L 02/24/23 05:20 Hct 32.2 % (36.0-47.0) L 02/24/23 05:20 MCV 89.5 fL (80.0-100.0) 02/24/23 05:20 MCH 30.0 pg (27.0-34.0) 02/24/23 05:20 MCHC 33.5 g/dL (33.0-35.0) 02/24/23 05:20 RDW 15.3 % (11.6-16.5) 02/24/23 05:20 Plt Count 140 X10^3/uL (150.0-450.0) L 02/24/23 05:20 MPV 8.7 fL (7.4-11.0) 02/24/23 05:20 Neut % (Auto) 68.4 % (42.0-75.0) 02/24/23 05:20 Lymph % (Auto) 20.5 % (21.0-51.0) L 02/24/23 05:20 [place] % (Auto) 10.9 % (0.0-13.0) 02/24/23 05:20 Eos % (Auto) 0.0 % (0.9-2.9) L 02/24/23 05:20 Baso % (Auto) 0.2 % (0.2-1.0) 02/24/23 05:20 Neut # (Auto) 2.8 x10^3/uL (2.2-4.8) 02/24/23 05:20 Lymph # (Auto) 0.8 X10^3/uL (1.3-2.9) L 02/24/23 05:20 [place] # (Auto) 0.4 x10^3/uL (0.3-0.8) 02/24/23 05:20 Eos # (Auto) 0.0 x10^3/uL (0.0-0.2) 02/24/23 05:20 Baso # (Auto) 0.0 X10^3/uL (0.0-0.1) 02/24/23 05:20 Absolute Nucleated RBC 0.1 /100WBC 02/24/23 05:20 Sodium 140 mmol/L (136-145) 02/24/23 05:20 Corrected Sodium 142 mmol/L (136-145) 02/24/23 05:20 Potassium 4.3 mmol/L (3.5-5.1) 02/24/23 05:20 Chloride 105 mmol/L (98-107) 02/24/23 05:20 Carbon Dioxide 27.1 mmol/L (21-32) 02/24/23 05:20 BUN 38 mg/dL (7-18) H 02/24/23 05:20 Creatinine 1.44 mg/dL (0.55-1.02) H 02/24/23 05:20 Est GFR (MDRD) Af Amer 48 (>60) L 02/24/23 05:20 Est GFR (MDRD) Non-Af 39 (>60) L 02/24/23 05:20 Glucose 183 mg/dL (65-99) H 02/24/23 05:20 Calcium 7.9 mg/dL (8.5-10.1) L 02/24/23 05:20 Corrected Calcium 8.9 mg/dL (8.5-10.1) 02/24/23 05:20 Total Bilirubin 0.30 mg/dL (0.2-1.0) 02/24/23 05:20 AST 27 Units/L (15-37) 02/24/23 05:20 ALT 14 Units/L (12-78) 02/24/23 05:20 Alkaline Phosphatase 78 Units/L (46-116) 02/24/23 05:20 Total Protein 6.6 g/dL (6.4-8.2) 02/24/23 05:20 Albumin 2.8 g/dL (3.4-5.0) L 02/24/23 05:20 Globulin 3.8 g/dL (2.5-4.5) 02/24/23 05:20 Albumin/Globulin Ratio 0.7 Ratio (1.1-2.1) L 02/24/23 05:20 Specimen Type Catherized urine 02/19/23 00:55 Urine Color Yellow (YELLOW) 02/19/23 00:55 Urine Appearance Clear (CLEAR) 02/19/23 00:55 Urine pH 5.0 (5.0 - 8.0) 02/19/23 00:55 Ur Specific [place] 1.020 (1.000-1.030) 02/19/23 00:55 Urine Protein 2+ (NEGATIVE) 02/19/23 00:55 Urine Glucose (UA) Negative (NEGATIVE) 02/19/23 00:55 Urine Ketones Negative (NEGATIVE) 02/19/23 00:55 Urine Blood 1+ (NEGATIVE) 02/19/23 00:55 Urine Nitrite Negative (NEGATIVE) 02/19/23 00:55 Urine Bilirubin Negative (NEGATIVE) 02/19/23 00:55 Urine Urobilinogen Normal (NORMAL) 02/19/23 00:55 Ur Leukocyte Esterase Negative (NEGATIVE) 02/19/23 00:55 Urine RBC 3-5 /HPF (0-3) A 02/19/23 00:55 Urine WBC None seen /HPF (0-5) 02/19/23 00:55 Ur Squamous Epith Cells Rare /HPF (NEGATIVE) 02/19/23 00:55 Urine Bacteria Negative /HPF (NEGATIVE) 02/19/23 00:55 Hyaline Casts Few /LPF (NEGATIVE) 02/19/23 00:55 Ur Culture Indicated? No/not indicated 02/19/23 00:55 Resp Viral Panel (PCR) See scanned report 02/19/23 17:25 Reason For Visit: ALTERED MENTALSTATUS, RENAL INSUFFICIENCY, Discharge Date Discharge Date: 02/24/23 Discharge Diagnosis All Active Problems (Updated 02/20/23 @ 19:50 by Jayce Woodruff) Insomnia (Acute) CELSA (acute kidney injury) (Acute) Acute respiratory failure (Acute) Acute exacerbation of CHF (congestive heart failure) (Acute) Pneumonia (Acute) Cellulitis of both lower extremities (Acute) Acute bronchitis (Acute) COVID-19 virus infection (Acute) Sinusitis (Acute) Dizziness (Acute) D-dimer, elevated (Acute) Edema (Acute) Cellulitis (Acute) Pedal edema (Acute) Ear ache (Acute) Dependent edema (Acute) Acute hyponatremia (Acute) Non-STEMI (non-ST elevated myocardial infarction) (Acute) Dehydration (Acute) Elevated liver enzymes (Acute) UTI (urinary tract infection) (Acute) Acute renal failure (ARF) (Acute) Acute hyperkalemia (Acute) Cardiomyopathy (Acute) Elevated troponin (Acute) CHF (congestive heart failure) (Acute) AMS (altered mental status) (Acute) Altered mental status (Acute) Renal insufficiency (Acute) Osteomyelitis (Acute) Osteoarthritis of right knee (Chronic) Diabetes mellitus type 2, uncontrolled (Chronic) Chronic kidney disease (Chronic) Essential hypertension (Chronic) Chronic pain of right knee (Chronic) Plan of Treatment: Continue with present treatment and follow up plan. Pt is to keep follow up appointment as instructed and take medications as ordered. Discharge Medications Discharge Medications: No Known Drug Allergies Allergy (Unknown, Unverified 02/14/20 13:34) CONTINUE taking the following medications amitriptyline 25 mg tablet 25 mg PO QHS 02/18/23 [History] amlodipine 10 mg tablet 10 mg PO QDAY 02/18/23 [History] aspirin 81 mg tablet,delayed release 81 mg PO DAILY 02/18/23 [History] carvedilol 6.25 mg tablet 6.25 mg PO BID 02/18/23 [History] furosemide 40 mg tablet (Lasix) 40 mg PO QDAY 02/18/23 [History] gabapentin 400 mg capsule 400 mg PO TID 02/18/23 [History] loratadine 10 mg tablet 10 mg PO QDAY 02/18/23 [History] meclizine 25 mg tablet 25 mg PO QDAY 02/18/23 [History] naproxen sodium 220 mg tablet 220 mg PO BID PRN 02/18/23 [History] nitroglycerin 0.4 mg sublingual tablet 0.4 mg sublingual Q5M PRN 02/18/23 [History] paroxetine HCl 20 mg tablet 20 mg PO QDAY 02/18/23 [History] potassium chloride 10 mEq tablet,extended release 10 meq PO QDAY 02/18/23 [History] New Prescriptions furosemide 40 mg tablet (Lasix) 40 mg PO BID #60 tabs 02/24/23 [Rx] levofloxacin 750 mg tablet 750 mg PO QDAY #3 tabs 02/24/23 [Rx] Discharge Disposition Assessment: No acute distress noted at time of discharge. Discharge Plan Discharge Plan Hospital Course: Pt is a 62 year old female that is a hospice patient for CHF admitted for acute CHF exacerbation, altered mental status due to polypharmacy, acute respiratory failure, and acute kidney injury. Her hospital/treatment course included: Wean O2 as tolerated to keep sats > 92%, IV Lasix 40 mg twice daily, monitor I/Os. IV antibiotics Levaquin for pneumonia, AIT respiratory panel positive for Haemophilus influenzae susceptible to Levaquin. Pt responded well to treatments and symptoms resolved. O2 weaned down to baseline requirement at home. Rx levaquin. Pt instructed to take lasix 40mg BID. Pt discharged in stable condition back to home hospice. Patient Disposition: 50 DISCHARGED TO HOSPICE -HOME Condition: Stable Health Concerns: Post Hospitalization: new medications and changes needed to prevent readmission or further decline. Pt educated and given instructions on all concerns. Care Plan Goals: Problem: Fluid Volume Overload Goal: Maintain/Improved Adequate hydration. Instructions: Follow provided instructions. Follow up with primary physician as directed. Contact primary care physician or report to the closest Emergency Room if condition worsens. Plan of Treatment: Continue with present treatment and follow up plan. Pt is to keep follow up appointment as instructed and take medications as ordered. Assessment: No acute distress noted at time of discharge. Prescriptions: New levofloxacin 750 mg Tablet 750 mg PO QDAY Qty: 3 0RF furosemide [Lasix] 40 mg Tablet 40 mg PO BID Qty: 60 0RF No Action glipizide 2.5 mg Tablet Extended Release 24hr 2.5 mg PO DAILY acetaminophen 650 mg suppository 1 supp SC Q4H PRN morphine concentrate 100 mg/5 mL (20 mg/mL) solution 0.5 - 2 ml PO Q2H PRN (Reason: dyspnea) hydrocodone-acetaminophen 5-325 mg tablet 1 tab PO Q6H PRN (Reason: pain) ondansetron HCl 4 mg Tablet 4 mg PO Q6H PRN lorazepam 0.5 mg tablet 1 - 4 tab PO Q2H PRN (Reason: anxiety) prochlorperazine [Compro] 25 mg suppository 1 supp SC Q12H PRN (Reason: nausea/vomiting) bisacodyl 10 mg suppository 1 supp SC 1-2XD hyoscyamine sulfate 0.125 mg tablet, sublingual 0.125 mg PO Q4H PRN Entresto 24-26 mg tablet 1 tab PO BID furosemide [Lasix] 40 mg Tablet 40 mg PO QDAY carvedilol 6.25 mg Tablet 6.25 mg PO BID Rx Instructions: must administer with a meal/food aspirin [Aspir-81] 81 mg Tablet,Delayed Release (Dr/Ec) 81 mg PO DAILY paroxetine HCl 20 mg Tablet 20 mg PO QDAY nitroglycerin 0.4 mg Tablet, Sublingual 0.4 mg SUBLINGUAL Q5M PRN Rx Instructions: do not exceed 3 doses per episode gabapentin 400 mg Capsule 400 mg PO TID potassium chloride 10 mEq Tablet Extended Release 10 meq PO QDAY amitriptyline 25 mg Tablet 25 mg PO QHS meclizine 25 mg Tablet 25 mg PO QDAY amlodipine 10 mg Tablet 10 mg PO QDAY naproxen sodium 220 mg Tablet 220 mg PO BID PRN loratadine 10 mg Tablet 10 mg PO QDAY Follow ups/Referrals Follow ups/Referrals: LESTER CASTRO [Primary Care Provider] - 03/03/23 9:00 am Instructions Instructions: Acute Kidney Injury, Adult, Heart Failure, Self-Care, [id number], Dehydration, Adult, [id number], Rehydration, Adult, Blood Glucose Monitoring, Adult Stand Alone Forms: Post Hospital Follow Up Care
== END 2023-02-24 12:30 | disposition hospice, home (50) | DRG 291 ==
LOC: ER 17:19 → MED/SURG 02-19 00:34
PROVIDERS: ADMIT Family Medicine; ATTEND Family Medicine
DX: N17.8 Other acute kidney failure; T50.915A Adverse effect of multiple unspecified drugs, medicaments and biological substances, initial encounter; J44.9 Chronic obstructive pulmonary disease, unspecified; X58.XXXA Exposure to other specified factors, initial encounter; I50.9 Heart failure, unspecified; G47.00 Insomnia, unspecified; R29.6 Repeated falls; B96.3 Hemophilus influenzae [H. influenzae] as the cause of diseases classified elsewhere; I11.0 Hypertensive heart disease with heart failure; Z73.89 Other problems related to life management difficulty; J18.8 Other pneumonia, unspecified organism; R41.82 Altered mental status, unspecified; W18.39XA Other fall on same level, initial encounter; E11.65 Type 2 diabetes mellitus with hyperglycemia; J96.00 Acute respiratory failure, unspecified whether with hypoxia or hypercapnia; R60.0 Localized edema; R26.81 Unsteadiness on feet